=== PATIENT | female | born 1955 | race Asian ===

== ENCOUNTER 2016-06-21 11:11 | Outpatient (CLI) | payer OTHER ==
[~2016-06-21 11:11] MED LIST: ADVAIR DISKU1 INH; ADVAIR DISKUS INH; ALBUTEROL HFA60 DOSE IN; ALBUTEROL2.5 MG/3 M IN; B-12500 MC1 PO; CALCIUM 600 + D PO; CALCIUM CARBON500 MG PO; CEFUROXIME AXE250 MG PO; COREG CR10 MG PO; COREG6.25 MG PO; COUMADIN5 MG PO; DSS250 MG PO; DUONEB IN; FERROUS SULFAT324 M1 PO; FERROUS SULFAT324 MG PO; FERROUS SULFAT325 M1 PO; FUROSEMIDE20 MG PO; INCRUSE EL62.5 MCG/I INH; ISOPTO ATROPINE OP; LASIX40 MG PO; LEVOFLOXACIN500 MG PO; LEVOTHYROXINE100 MCG PO; LEVOTHYROXINE137 MCG PO; LISINOPRIL5 MG PO; MIRALAX3350 N1 PO; OXYCODONE HCL5 MG PO; PHENERGAN EQUIV25 MG PO; PRED FORTE1 % OP; PREDNISONE10 MG PO; PREDNISONE20 MG PO; PRILOSEC20 MG PO; PRINIVIL5 MG PO; PROAIR HFA IN; ROXICODONE5 MG PO; SENNA-LAX8.6 MG PO; SENNA-TABS8.6 MG PO; SPIRIVA18 MCG INH; WARFARIN SODIUM5 MG PO; [UNRECOGNIZED DRUG - OTHER] PO
== END 2016-06-21 23:00 ==
LOC: LAB SRH 11:11
DX: Z95.2 Presence of prosthetic heart valve (principal); Z79.01 Long term (current) use of anticoagulants; Z51.81 Encounter for therapeutic drug level monitoring
CPT/HCPCS: 90074; 94060

== ENCOUNTER 2016-07-20 11:42 | Outpatient (CLI) | payer OTHER | END 2016-07-20 23:00 | LOC: LAB SRH 11:42 | DX: Z51.81 Encounter for therapeutic drug level monitoring (principal); Z79.01 Long term (current) use of anticoagulants; Z95.2 Presence of prosthetic heart valve | CPT/HCPCS: 90074; 94060 ==

== ENCOUNTER 2016-07-31 14:42 | Inpatient (IN) | payer OTHER ==
[~2016-07-31] VITALS: Ht 157.5 cm; Wt 55.2 kg
--- NOTE | 2016-07-31 15:32 | DIAGNOSTIC IMAGING REPORT ---
PROCEDURE: XR CHEST 1 VIEW INDICATION: Short of breath. TECHNIQUE: Portable AP view (1515 hours). COMPARISON: Compared to chest x-ray on 03/22/2016. FINDINGS: Lungs are clear. Status post median sternotomy. Marked cardiomegaly. Thorax is unchanged. IMPRESSION: 1. Status post median sternotomy. 2. Marked cardiomegaly. 3. Otherwise negative chest.
--- NOTE | 2016-07-31 18:28 | ED NURSING NOTES ---
Clinical Report - Nurses [facility] [address] [place] [address] 07/31/2016 14:42 Patient: GINGER JOHNSON TRIAGE Triage time 1452 PM. Acuity: LEVEL 3. Chief Complaint: SHORTNESS OF BREATH, DIFFICULTY BREATHING and WHEEZING. Alert. No acute distress. SEJAL COMA SCORE: [place] Coma Scale: 15- eyes open spontaneously (4); best verbal response- oriented x 4 (5); best motor response- obeys commands (6). --15:05 Annalisa Newman R.N. 14:58 07/31/16. BP: 99/66 (small adult cuff) taken on the left arm, via an automated monitor, while sitting. HR: 76. RR: 14. O2 saturation: 99%. O2 started via nasal cannula at 4 liters/minute. Temp: 98.9 F (oral). Pain level now: 0/10. --15:05 Annalisa Newman R.N. Weight: 47.6 kg stated. Height/Length: 60 inches Per Patient. BMI: 20.5. --14:53 Annalisa Newman R.N. Medications Advair Diskus Inhalation 1 puff, 2x a day. Albuterol Sulfate Inhalation 2 puffs, as needed. Calcium 600+D Oral. Carvedilol Phosphate ER Oral (Capsule Extended Release 24 Hour 10 mg), bid. Coumadin Oral 5 mg, daily (Th-Sat 5mg all other days 2.5 mg). Cyanocobalamin 1000 mg, daily. Ferrous Sulfate Oral 324 mg, 2x a day. Folic Acid Oral 1 mg, daily. Furosemide Oral (Tablet 20 mg) 2 tablets, 2x a day. Incruse ellipta 62.5 mcg/inhalation, daily. Levothyroxine Sodium Oral 137 mcg, daily. Lisinopril Oral 5 mg, daily. --14:52 Annalisa Newman R.N. Omeprazole Oral 20 mg, 2x a day. OxyCODONE HCl Oral 5 mg, 1-2 tabs 2-3 times daily as needed. PredniSONE Oral 10 mg, daily. ProAir HFA Inhalation, as needed. Promethazine HCl Oral 12.5 mg, daily as needed. Senna Oral 2 tablets prn at hs. --14:52 Annalisa Newman R.N. Medication/allergy information source: the patient. --15:05 Annalisa Newman R.N. Allergies No Known Drug Allergy. --14:52 Annalisa Newman R.N. History Historian: patient. Primary physician (Dr. Baptiste). ( Poor historian, pt states not feeling good for the past 5-6 days, dizzy SOB, on O2 at home at 3l via NC, denies CP,). Onset. (5 days). She has had a cough and wheezing. No chest pain or back pain. Treatment MACHINE PACKAGER: (albuterol). PAST MEDICAL HX: Congestive heart failure. Asthma. Chronic obstructive pulmonary disease. Immunizations: up-to-date. The patient is post-menopausal. SOCIAL HX: Former smoker, end date 1996. No alcohol use or drug use. No infectious disease exposure. ABUSE ASSESSMENT: No report of abuse. SELF HARM ASSESSMENT: A self harm assessment was performed. The patient answered "no" to the question "Do you have thoughts of harming or killing yourself?" and "Have you recently had thoughts about harming or killing others?". FALL RISK ASSESSMENT: Fall risk assessment completed. No fall risk identified. NUTRITIONAL RISK ASSESSMENT: The nutritional risk assessment revealed no deficiencies. FUNCTIONAL ASSESSMENT: Functional assessment: no impairments noted. LEARNING NEEDS ASSESSMENT: The learning needs assessment revealed no barriers. SKIN INTEGRITY ASSESSMENT: Skin integrity risk assessment completed. No skin integrity risk identified. --15:05 Annalisa Newman R.N. PROBLEMS: Home oxygen. Gastroenteritis. Anemia. Epistaxis. Prior Nosebleeds. Abdominal Pain. Ascites. Emphysema. Immunizations. Respiratory Failure. Gallstone(s). Dyspnea. Asthma. --14:52 Annalisa Newman R.N. Pneumonia [RuleOut]. Congestive Heart Failure [RuleOut]. COPD - Chronic Obstructive Pulmonary Disease [RuleOut]. --14:52 Annalisa Newman R.N. Hypothyroidism. Cirrhosis. --15:00 Annalisa Newman R.N. ADDITIONAL SURGERIES: Aortic and mitral valvuloplasty. Cataract Surgery. Hernia Repair. Thyroid Surgery. --14:52 Annalisa Newman R.N. Interventions ID band on patient. --15:05 Annalisa Newman R.N. PHYSICAL ASSESSMENT Ambulatory to room. GENERAL / NEURO / PSYCH: Alert. Oriented X 4. Appears in no acute distress. HEENT: Mucous membranes are pink. RESPIRATORY: Moderate respiratory distress. The patient can speak a few words at a time. Nasal flaring present. Cough. Expiratory and inspiratory bilateral wheezes posteriorly and in the bases and wheezes in the right and left mid-lung and upper lung; wheezes audible without auscultation. CVS: Cardiac rhythm: atrial fibrillation; frequent PVCs. GI / : Abdomen soft and nontender. SKIN: Skin is warm and dry. Poor skin turgor. --15:07 Annalisa Newman R.N. NURSING PROGRESS NOTES 15:08 07/31/2016 Duoneb (Ipratropium-Albuterol) Neb TX Nebulizer 1 unit dose given. Given by the respiratory therapist. Allergies verified and confirmed 5 rights. Scotty Estrella --15:08 Scotty Estrella The initial plan of care for this patient has been created This plan of care was discussed with the patient and patient's friend. Oxygen administered by nasal cannula at 4 liters. environmental monitoring specialist, pulse oximeter and NIBP monitor placed on patient. Patient gowned. Head of bed elevated 90 degrees. Warming measures: blanket applied. Reassurance given. Assisted patient. ( Pt on O2 at home, placed on O2 in the WR at 4 liters, treatment being administered as ordered). Two patient identifiers checked. Fall risk assessment completed. Risk factors identified include patient medications and age greater than 65 years. Fall interventions initiated. Compressor Battery Pellets at bedside. Call light in reach of patient. Instructed not to get up without assistance. Call light placed in reach. Side rails up x 1. Bed placed in lowest position. Brakes of bed on. --15:09 Annalisa Newman R.N. 15:09 07/31/16. BP: 101/63. HR: 86. RR: 18. O2 saturation: 97%. O2 started via nasal cannula at 4 liters/minute. Pain level now: 0/10. --15:09 Annalisa Newman R.N. 15:37 07/31/2016 Site #1 started via IV in the right forearm with an 22g angiocath; two attempts. Blood drawn: rainbow set. Labeled in the presence of the patient and sent to the lab. Saline lock flushed. --15:37 Annalisa Newman R.N. 15:37 07/31/2016 SOLU-MEDROL (MethylPREDNISolone Sodium Succ) IVP 125 mg given over 2 minute(s) via site #1. --15:37 Annalisa Newman R.N. 15:44 07/31/16. BP: 107/80 (small adult cuff) taken on the left arm, via an automated monitor, while sitting. HR: 86 (irregular). RR: 18. O2 saturation: 97% on nasal cannula at 5 liters/minute. Pain level now: 0/10. --15:48 Annalisa Newman R.N. Cardiac rhythm: atrial fibrillation; occasional PVCs. Oxygen increased to 5 liters by nasal cannula; (due to treatment). Monitoring of patient in place. EKG time: (1538 PM). EKG was performed by a tech and shown to the ED physician. Patient ID band checked for patient name, birthdate and medical record number: patient confirmed. Blood samples drawn from the right forearm peripheral IV site with 22g by nurse per protocol ; labeled in presence of the patient and sent to lab: rainbow set. Reassurance given. Reassessment after oxygen administered, intervention and medication administered. She has had no adverse reaction. Overall patient status is the same- she states feels the same. GENERAL / NEURO / PSYCH: The patient reports fatigue. RESPIRATORY: The patient reports difficulty breathing is still present but improving and currently mild in severity. Expiratory and inspiratory wheezes present; wheezes audible without auscultation. CVS: Denies chest pain. Cardiac rhythm: atrial fibrillation; occasional PVCs. Two patient identifiers checked. Call light placed in reach. Side rails up. Bed placed in lowest position. Brakes of bed on. --15:48 Annalisa Newman R.N. 16:00 07/31/2016 albuterol neb * Neb TX 7.5 mg --16:48 Annalisa Newman R.N. 16:08 07/31/2016 Zofran (Ondansetron HCl) IVP 4 mg given over 2 minute(s) via site #1. IV patency established. IV site checked: no pain, redness, or swelling. IV flushed thoroughly pre- and post-medication administration. --16:08 Guido Marquez R.N. 17:00 07/31/16. BP: 88/60. HR: 94. RR: 20. O2 saturation: 92%. O2 started via nasal cannula at 4 liters/minute. Pain level now: 0/10. ED physician notified. --17:20 Annalisa Newman R.N. Cardiac rhythm: atrial fibrillation; occasional multifocal PVCs. Oxygen administered. environmental monitoring specialist, pulse oximeter and NIBP monitor placed on patient. Reassurance given. ( Dr. Ford aware of pt BP 80's IV bolus in progress). --17:20 Annalisa Newman R.N. Cardiac rhythm: atrial fibrillation. Oxygen administered. environmental monitoring specialist, pulse oximeter and NIBP monitor placed on patient; monitor alarms on. Reassurance given. ( Pt needing a CTA new IV placed, tolerated well, fluids infusing tolerating well.). --17:32 Annalisa Newman R.N. 17:30 07/31/16. BP: 94/39. HR: 84. RR: 20. O2 saturation: 97% on nasal cannula at 4 liters/minute. Temp: 98.2 F (oral). Pain level now: 0/10. --17:32 Annalisa Newman R.N. Patient returned from CT by stretcher with O2 and tech. --18:18 Annalisa Newman R.N. 18:32 07/31/16. BP: 112/60. HR: 83. RR: 19. O2 saturation: 94%. O2 started via nasal cannula at 4 liters/minute. Temp: 98.3 F (oral). Pain level now: 0/10. --18:34 Annalisa Newman R.N. Cardiac rhythm: atrial fibrillation; occasional unifocal PVCs. Reassurance given. ( consent obtained for blood transfusion, pt understands results, Dr. Ford at bedside.). Two patient identifiers checked. Call light placed in reach. Side rails up x 2. Bed placed in lowest position. Brakes of bed on. --18:34 Annalisa Newman R.N. 16:45 07/31/2016 Albuterol neb Neb TX Response: no adverse reaction. --19:45 Annalisa Newman R.N. 17:00 07/31/2016 Zofran IVP Response: no adverse reaction. --19:46 Annalisa Newman R.N. 17:18 07/31/2016 Started bag #1 250 mL IV Fluids IV NS (Saline); at 250 mL/hr over 1 hour(s) via site #1 via IV pump. Allergies verified and confirmed 5 rights. IV patency established. IV site checked: no pain, redness, or swelling. IV flushed thoroughly pre- and post-medication administration. --17:18 Annalisa Newman R.N. 17:31 07/31/2016 Site #2 started via IV in the left upper arm with an 20g angiocath; one attempt. Saline lock flushed with 10 mL saline. --17:31 Annalisa Newman R.N. 19:02 07/31/2016 IV Fluids IV NS Discontinued: bag #1 STOPPED. Total amount infused: 250 mL. IV patency established. IV site checked: no pain, redness, or swelling. IV flushed thoroughly. --19:27 Annalisa Newman R.N. late entry - 19:00 PM. Cardiac rhythm: atrial fibrillation; frequent multifocal PVCs. Reassurance given. Reassessment after oxygen administered. She is resting quietly and has had no adverse reaction. Overall patient status is improved- she states feels better. CVS: Denies chest pain. Patient waiting for admit bed. --20:16 Annalisa Newman R.N. 19:02 07/31/16. BP: 117/60. HR: 87 (irregular). RR: 18 (regular, labored and normal). O2 saturation: 95% on nasal cannula at 4 liters/minute. Pain level now: 0/10. --20:16 Annalisa Newman R.N. Intake & Output Urine: 150 mL. Patient voided on the commode. Tech assisted with transfer due to weakness and O2, with return of yellow-colored clear urine; odor is normal. --19:29 Wen Lee. DISPOSITION / DISCHARGE 20:10 07/31/2016 Site #1 reassessed; patent and infusing well. Good blood return present. Converted to saline lock. --20:10 Annalisa Newman R.N. 20:11 07/31/2016 Site #2 reassessed; patent, infusing well and no signs of infection or infiltration. Good blood return present. Converted to saline lock. Flushed. --20:11 Annalisa Newman R.N. 20:11 07/31/2016 Site #1; infusing well and no signs of infection or infiltration. --20:11 Annalisa Newman R.N. Cardiac rhythm: atrial fibrillation; frequent multifocal PVCs. Condition at departure: improved and stable. The goals identified in the patient's plan of care were met. Transported via stretcher by transport team with O2. Report was given to a nurse via a phone call. Report included patient's care, treatment, medications, reviewed medication reconcilliation, and condition (including any recent changes or anticipated changes). All questions were answered. Report was acknowledged and care was transferred. ( Pt will be transferred safely to room, VSS, IV sites intact). --20:12 Annalisa Newman R.N. 20:10 07/31/16. BP: 117/79. HR: 92. RR: 17. O2 saturation: 99% on nasal cannula at 4 liters/minute. Temp: 98 F (oral). Pain level now: 0/10. --20:12 Annalisa Newman R.N. Departure time: 2015 PM. --20:16 Annalisa Newman R.N. Locked/Released at 07/31/2016 20:17 by Annalisa Newman R.N.
--- NOTE | 2016-07-31 18:28 | ED ORDER SUMMARY ---
..... Patient: GINGER JOHNSON OrderSheet [facility] VisitID: [id number] [address] [place] [address] 61y, F Registration Date/Time: 07/31/2016 ORDER SHEET Weight: 47.6 kg (stated) Allergies: No Known Drug Allergy GENERAL ORDERS: Project Coordinator (Continuous) (Respiratory Distress) (15:03 07/31/2016 Peterson Williamson) (15:09 EHassan R.N.) Chest 1V Urgent (15:04 07/31/2016 Peterson Williamson) (Ack 15:16 Tian) (15:16 Calin) CBC w Diff Urgent (15:04 07/31/2016 Peterson Williamson) (Ack 15:15 Tian) (15:37 EHassan R.N.) CMP Urgent (15:04 07/31/2016 Peterson Williamson) (Ack 15:15 Tian) (15:37 EHassan R.N.) Lactate, Serum Urgent (15:04 07/31/2016 Peterson Williamson) (Ack 15:15 Tian) (15:37 EHassan R.N.) PCT (Procalcitonin) Urgent (15:04 07/31/2016 Peterson Williamson) (Ack 15:15 Tian) (15:37 EHassan R.N.) Pulse oximeter (15:04 07/31/2016 Peterson Williamson) (15:09 EHassan R.N.) Oxygen (titrate to sats > 92%) (NC) (15:05 07/31/2016 Peterson Williamson) (15:28 EHassan R.N.) Rapid Influenza Screen (Nasal Pharyngeal) (mucus) Urgent (15:14 07/31/2016 Peterson Williamson) (Ack 15:16 Tian) (15:28 EHassan R.N.) RSV Rapid Screen (Nasal Pharyngeal) (mucus) Urgent (15:14 07/31/2016 Peterson Williamson) (Ack 15:16 Tian) (15:28 EHassan R.N.) BNP Urgent (15:18 07/31/2016 Peterson Williamson) (15:37 Francesca R.N.) Troponin-I Urgent (15:18 07/31/2016 Peterson Williamson) (15:37 Francesca R.N.) D-Dimer Urgent (15:18 07/31/2016 Peterson Williamson) (15:37 Francesca R.N.) EKG - ER Stat (15:18 07/31/2016 Peterson Williamson) (15:40 Francesca R.N.) CTA Thorax w Cont (No) (N/A) Urgent (15:59 07/31/2016 Peterson Williamson) (Ack 16:09 Tian) (18:08 Francesca R.N.) Blood Product: Platelets (anemia) (anemia and shortness of breath) Urgent (18:19 07/31/2016 Peterson Williamson) (Ack 18:23 Tian) (18:31 Francesca R.N.) (Cancelled: Duplicate Order18:56 Peterson Williamson) Type & Screen Urgent (18:19 07/31/2016 Peterson Williamson) (Ack 18:23 Tian) (18:32 Francesca R.N.) Transfuse PRBCs (2) (18:20 07/31/2016 Peterson Williamson) (18:31 Francesca R.N.) Consent for: (Blood Products) (18:20 07/31/2016 Peterson Williamson) (Ack 18:23 Tian) (18:31 Francesca R.N.) PT with INR Urgent (19:16 07/31/2016 Peterson Williamson) (19:35 Francesca R.N.) PTT Urgent (19:16 07/31/2016 Peterson Williamson) (19:35 Francesca R.N.) MEDICATION ORDERS: DuoNeb Neb Tx 1 unit dose (NOW) (15:04 07/31/2016 Peterson Williamson) (15:08 CrowZiwai) Albuterol Neb Tx 7.5 mg (one now over an hour) (15:14 07/31/2016 Peterson Williamson) (16:48 Francesca R.N.) IV FLUIDS: Solu-MEDROL IV 125 mg (NOW) (15:04 07/31/2016 Peterson Williamson) (15:37 EHassareyes R.N.) IV Saline Lock (15:04 07/31/2016 Peterson Williamson) (15:40 EHassareyes R.N.) Zofran IV 4 mg (NOW) (16:03 07/31/2016 Peterson Williamson) (16:08 GMarshall R.N.) IV NS : initial bolus 250 mL (1000 mL/hr), then none - for X1 (NOW) (17:13 07/31/2016 Peterson Williamson) (17:18 EHassan R.N.) ORDER SHEET NOTES: [Electronically signed by Annalisa Newman R.N. (20:17 07/31/2016)] [Electronically signed by Jose Martínez Dr. (08:26 08/06/2016)] [Electronically locked/signed by Annalisa Newman R.N. (20:17 07/31/2016)]
--- NOTE | 2016-07-31 18:28 | ED CLINICAL REPORT ---
Clinical Report - Physicians/Mid Levels [facility] [address] [place] [address] 07/31/2016 14:42 Patient: GINGER JOHNSON Arrived- By private vehicle. Historian- patient. HISTORY OF PRESENT ILLNESS Chief Complaint: DYSPNEA. This started past several days and is still present and worsening. It was gradual in onset and has been constant but is not gone now. The dyspnea is described as moderate and is worsened by exertion and is improved by rest. No cough, chest pain or discomfort, calf pain or foot swelling. She has had mild wheezing. Similar symptoms previously: Recent medical care: Not recently seen/assessed. REVIEW OF SYSTEMS The patient has not had weight loss. No muscle aches, nausea, vomiting, black stools or bloody stools. All systems otherwise negative, except as recorded above. PAST HISTORY See nurses notes. Medications: Omeprazole Oral 20 mg, 2x a day. OxyCODONE HCl Oral 5 mg, 1-2 tabs 2-3 times daily as needed. PredniSONE Oral 10 mg, daily. ProAir HFA Inhalation, as needed. Promethazine HCl Oral 12.5 mg, daily as needed. Senna Oral 2 tablets prn at hs. Advair Diskus Inhalation 1 puff, 2x a day. Albuterol Sulfate Inhalation 2 puffs, as needed. Calcium 600+D Oral. Carvedilol Phosphate ER Oral (Capsule Extended Release 24 Hour 10 mg), bid. Coumadin Oral 5 mg, daily (Th-Sat 5mg all other days 2.5 mg). Cyanocobalamin 1000 mg, daily. Ferrous Sulfate Oral 324 mg, 2x a day. Folic Acid Oral 1 mg, daily. Furosemide Oral (Tablet 20 mg) 2 tablets, 2x a day. Incruse ellipta 62.5 mcg/inhalation, daily. Levothyroxine Sodium Oral 137 mcg, daily. Lisinopril Oral 5 mg, daily. Allergies: No Known Drug Allergy. SOCIAL HISTORY Former smoker. No alcohol use or drug use. Recent travel. ADDITIONAL NOTES The nursing notes have been reviewed. PHYSICAL EXAM Vital Signs: 07/31/2016 14:58 BP: 99/66. HR: 76. RR: 14. O2 saturation: 99%. Temp: 98.9 F. Pain level now: 0/10. Blood pressure normal. Oxygen saturation normal. Appearance: Alert. Patient in mild distress. Eyes: Pupils equal, round and reactive to light. Eyes normal inspection. ENT: Ears normal. Nose normal. Pharynx normal. Uvula midline. Neck: Normal inspection. No jugular venous distention. Neck supple. CVS: Normal heart rate and rhythm. Heart sounds normal. Pulses normal. Respiratory: Respiratory distress. Mild bilateral wheezes present. No stridor, rales or rhonchi. (nly able to speak in several word sentences). Abdomen: Soft and nontender. No organomegaly. Back: Normal inspection. Skin: Skin warm and dry. Normal skin color. No rash. Normal skin turgor. Extremities: Extremities exhibit normal ROM. No lower extremity edema. Neuro: Oriented X 3. No motor deficit. No sensory deficit. LABS, X-RAYS, AND EKG EKG: No acute ischemia. Rate: 88. Normal P waves. Normal ERIC. Normal QRS complex. Normal axis. Normal ST and T waves, QT and QTc. few PVCs. otherwise normal sinus with fascicular block. The study has been interpreted contemporaneously. The study has been independently viewed by me. The EKG appears to be a good tracing. Chest X-ray: No acute disease. Cardiomegaly. No infiltrate. No pneumothorax. Views: PA. Technique: good. The X-rays were independently viewed by me and interpreted by the radiologist. The X-rays were discussed with the radiologist (via pacs). A comparison with prior films reveals that the findings are unchanged. Laboratory Tests: CBC w Diff: (JP: 07/31/2016 15:18) ( MsgRcvd 07/31/2016 15:53) Final results Test Result Flag Units (Reference) WHITE BLOOD COUNT 4.0 L K/uL (4.5-11.5) RED BLOOD COUNT 2.08 L M/uL (4.00-5.20) HEMOGLOBIN 6.8 *L gm/dL (12.0-16.0) CRITICAL RESULTS CALLEDCalled to [facility] 07/31/16 1552Were 2 patient identifiers used? YWas the result read back? Y HEMATOCRIT 20.2 *L % (36.0-46.0) CRITICAL RESULTS CALLEDCalled to [facility] [employer] 07/31/16 1552Were 2 patient identifiers used? YWas the result read back? Y MEAN CELL VOLUME 97 fL (80-100) MEAN CORPUSCULAR HGB 33 pg (26-34) MEAN CORPUSCULAR HGB CONC 33 g/dL (31-37) RED CELL DISTRIBUTION WIDTH 17.0 H % (11.6-14.8) PLATELET COUNT 157 K/uL (150-400) NEUTROPHIL % 78.1 H % (50-75) LYMPH % 12.9 L % (25-40) MONO % 8.9 % (3-14) EOSINOPHIL % 0.1 % (0-4) BASOPHIL % 0 % (0-2) [id number]: (JP: 07/31/2016 15:18) ( [facility] 07/31/2016 15:55) Final results Test Result Flag Units (Reference) D-DIMER QUANTITATIVE 1.03 H ug/mLFEU (0.27-0.52) The primary value of this quantitative assay relates toits negative predictive value (i.e. exclusion) of pulmonaryembolism/deep vein thrombosis/DIC.Elevated levels of d-dimer may also occur with:, age, cancer, inflammation, liver disease,post-op, infection, hematoma, coronary disease, peripheralarteriopathy, bleeding disorders and thrombolytic treatment.Results should be correlated with other clinical andradiological data.Testing Methodology: Latex Immunoassay BNP: (JP: 07/31/2016 15:18) ( [facility] 07/[facility] 16[facility]01) Final results Test Result Flag Units (Reference) B-TYPE NATRIURETIC PEPTIDE 189 H pg/ml (5-100) Troponin-I: (JP: 07/31/2016 15:18) ( [facility] 07/31/2016 16:17) Final results Test Result Flag Units (Reference) TROPONIN I <0.05 ng/mL (0.00-1.5) TROPONIN REFERENCE RANGE:<0.1 NEGATIVE0.1-1.5 INDETERMINANT>1.5 POSITIVE Lactate, Serum: (JP: 07/31/2016 15:18) ( AkgRcvd 07/31/2016 16:18) Final results Test Result Flag Units (Reference) LACTIC ACID 1.4 mmol/L (0.4-2.0) CMP: (JP: 07/31/2016 15:18) ( MsgRcvd 07/31/2016 16:17) Final results Test Result Flag Units (Reference) GLUCOSE 104 mg/dL (70-110) BUN 24 H mg/dL (7-18) CREATININE 1.6 H mg/dL (0.6-1.3) Estimated GFR 34.83 mL/min Estimated GFR- 42.21 mL/min Note: Persistent reduction over 3 months in eGFR<60 mL/min/1.73 m2 defines CKD. Patients with eGFR values>=60 mL/min/1.73 m2 may also have CKD if evidence ofpersistent proteinuria. Additional information may be foundat www.[email or web address].org. SODIUM 132 L mmol/L (136-145) POTASSIUM 3.5 mmol/L (3.5-5.1) CHLORIDE 94 L mmol/L (98-107) CARBON DIOXIDE 28 mmol/L (21-32) CALCIUM 8.1 L mg/dL (8.5-10.1) TOTAL PROTEIN 7.0 g/dL (6.4-8.2) ALBUMIN 3.2 L g/dL (3.3-5.0) BILIRUBIN, TOTAL 0.9 mg/dL (0.0-1.0) ALKALINE PHOSPHATASE 122 H U/L (46-116) AST (SGOT) 50 H U/L (15-37) ALT (SGPT) 17 U/L (12-78) RSV Rapid Screen: (JP: 07/31/2016 15:18) ( MsgRcvd 07/31/2016 16:22) Final results SPECIMEN DESCRIPTION: MUCUS Test Result Flag Units (Reference) RSV RAPID TEST DATE: 07/31/16 NEGATIVE SCREEN: NEGATIVE If Rapid RSV test is Negative but RSV is still suspected, a confirmatory RSV DFA can be requested. RAPID INFLUENZA SCREEN DATE: 07/31/16 INFLUENZA A: NEGATIVE SCREEN FOR INFLUENZA A INFLUENZA B: NEGATIVE SCREEN FOR INFLUENZA B . PROGRESS AND PROCEDURES Course of Care: the patient is a pleasant 61-year-old female presenting for evaluation of shortness of breath. At this time differential diagnosis includes pneumonia, COPD exacerbation, acute myocardial infarction, pulmonary embolism. The patient was seen by me previously and known to have a COPD exacerbation. Patient is wheezing on examination. Patient will be given breathing treatments including DuoNeb and steroids. Patient is agreeable to treatment plan. Laboratory studies ordered for the above diagnosis including chest x-ray and d-dimer. Patient's workup shows patient to have stable cardiomegaly. EKG is unremarkable. The patient's laboratories were significant for hemoglobin of 6.8. I'd spoken to the patient in regards to bleeding symptoms. The patient initially had reported no symptoms of bleeding however after performing digital rectal examination, head asked patient about black colored stools. Informed patient that the black colored stools are abnormal. Patient reports that this is been on for the past few days. Patient is noted to be on blood thinners. Patient states that she has been compliant with her medications and not had any missed doses. Because of the patient's noted low hemoglobin at 6.8, she will likely need to be admitted however at this time patient could also have pulmonary embolism. CT scan is pending at this time. We're currently awaiting CT scan results. CT scan did not show any acute abnormalities with the patient's pulmonary vasculature in regards to pulmonary embolism. Patient will be transfused 2 units. Caution will be exercised when providing patient with blood products as she is noted to have history of congestive heart failure. Case has been discussed with the hospitalist. Patient will be accepted. No further recommendations. The patient was admitted without further delay. Prior to patient's departure from the emergency department she is noted to be resting in bed and in no acute distress. Patient likely with acute blood loss anemia from GI bleed. Critical care performed (65 minutes). Time is exclusive of separately billable procedures. Time includes: direct patient care, patient reassessment, coordination of patient care, interpretation of data (laboratory data and chest xrays), review of patient's medical records, medical consultation and documentation of patient care. Disposition: Admitted to Acute Care. CLINICAL IMPRESSION anemia, acute blood loss GI bleed, acute incidental left adrenal mass enlarged. (Electronically signed by Jose Martínez Dr. 08/06/2016 8:26)
--- NOTE | 2016-07-31 18:28 | ED ORDER SUMMARY ---
..... Patient: GINGER JOHNSON OrderSheet [facility] VisitID: [id number] [address] [place] [address] 61y, F Registration Date/Time: 07/31/2016 ORDER SHEET Weight: 47.6 kg (stated) Allergies: No Known Drug Allergy GENERAL ORDERS: Circular Saw Edge Fuser (Continuous) (Respiratory Distress) (15:03 07/31/2016 Peterson Williamson) (15:09 EHassan R.N.) Chest 1V Urgent (15:04 07/31/2016 Peterson Williamson) (Ack 15:16 Tian) (15:16 Calin) CBC w Diff Urgent (15:04 07/31/2016 Peterson Williamson) (Ack 15:15 Tian) (15:37 EHassan R.N.) CMP Urgent (15:04 07/31/2016 Peterson Williamson) (Ack 15:15 Tian) (15:37 EHassan R.N.) Lactate, Serum Urgent (15:04 07/31/2016 Peterson Williamson) (Ack 15:15 Tian) (15:37 EHassan R.N.) PCT (Procalcitonin) Urgent (15:04 07/31/2016 Peterson Williamson) (Ack 15:15 Tian) (15:37 EHassan R.N.) Pulse oximeter (15:04 07/31/2016 Peterson Williamson) (15:09 EHassan R.N.) Oxygen (titrate to sats > 92%) (NC) (15:05 07/31/2016 Peterson Williamson) (15:28 EHassan R.N.) Rapid Influenza Screen (Nasal Pharyngeal) (mucus) Urgent (15:14 07/31/2016 Peterson Williamson) (Ack 15:16 Tian) (15:28 EHassan R.N.) RSV Rapid Screen (Nasal Pharyngeal) (mucus) Urgent (15:14 07/31/2016 Peterson Williamson) (Ack 15:16 Tian) (15:28 EHassan R.N.) BNP Urgent (15:18 07/31/2016 Peterson Williamson) (15:37 Francesca R.N.) Troponin-I Urgent (15:18 07/31/2016 Peterson Williamson) (15:37 Francesca R.N.) D-Dimer Urgent (15:18 07/31/2016 Peterson Williamson) (15:37 Francesca R.N.) EKG - ER Stat (15:18 07/31/2016 Petesron Williamson) (15:40 Francesca R.N.) CTA Thorax w Cont (No) (N/A) Urgent (15:59 07/31/2016 Peterson Williamson) (Ack 16:09 Tian) (18:08 Francesca R.N.) Blood Product: Platelets (anemia) (anemia and shortness of breath) Urgent (18:19 07/31/2016 Peterson Williamson) (Ack 18:23 Tian) (18:31 Francesca R.N.) (Cancelled: Duplicate Order18:56 Peterson Williamson) Type & Screen Urgent (18:19 07/31/2016 Peterson Williamson) (Ack 18:23 Tian) (18:32 Francesca R.N.) Transfuse PRBCs (2) (18:20 07/31/2016 Peterson Williamson) (18:31 Francesca R.N.) Consent for: (Blood Products) (18:20 07/31/2016 Peterson Williamson) (Ack 18:23 Tian) (18:31 Francesca R.N.) PT with INR Urgent (19:16 07/31/2016 Peterson Williamson) (19:35 Francesca R.N.) PTT Urgent (19:16 07/31/2016 Peterson Williamson) (19:35 Francesca R.N.) MEDICATION ORDERS: DuoNeb Neb Tx 1 unit dose (NOW) (15:04 07/31/2016 Peterson Williamson) (15:08 CrowZiwai) Albuterol Neb Tx 7.5 mg (one now over an hour) (15:14 07/31/2016 Peterson Williamson) (16:48 Francesca R.N.) IV FLUIDS: Solu-MEDROL IV 125 mg (NOW) (15:04 07/31/2016 Peterson Williamson) (15:37 EHassareyes R.N.) IV Saline Lock (15:04 07/31/2016 Peterson Williamson) (15:40 EHassareyes R.N.) Zofran IV 4 mg (NOW) (16:03 07/31/2016 Peterson Williamson) (16:08 GMarshall R.N.) IV NS : initial bolus 250 mL (1000 mL/hr), then none - for X1 (NOW) (17:13 07/31/2016 Peterson Williamson) (17:18 EHassan R.N.) ORDER SHEET NOTES: [Electronically signed by Annalisa Newman R.N. (20:17 07/31/2016)] [Electronically signed by Jose Martínez Dr. (08:26 08/06/2016)] [Electronically locked/signed by Annalisa Newman R.N. (20:17 07/31/2016)]
[2016-07-31 18:32] VITALS: BP 112/60
--- NOTE | 2016-07-31 19:04 | DIAGNOSTIC IMAGING REPORT ---
PROCEDURE: CTA THORAX WITH CONTRAST INDICATION: SOB AND + D-DIMER TECHNIQUE: 124 ml of Isovue 370 was injected intravenously and axial images were obtained of the entire thorax with 3D sagittal and coronal MIP reconstructions. COMPARISON: Comparison is made to chest x-ray earlier today (07/31/2016), and CT abdomen and pelvis (03/06/2013). FINDINGS: Peripheral pulmonary vessels are difficult to evaluate due to suboptimal opacification, as a result of marked cardiomegaly. There is enlargement of the central pulmonary arteries, although no emboli are identified. There are mild parenchymal changes at the left medial lung base. There is chronic right middle lobe atelectasis. Marked cardiomegaly. Status post median sternotomy with probable aortic and mitral valve prostheses. Mild degenerative change of the thoracic spine. There is increase in a 2.6 cm left adrenal nodule (50 HU, previously measuring 1.6 cm). IMPRESSION: 1. Limited evaluation of peripheral pulmonary arteries as a result of marked cardiomegaly. No large central emboli are identified. 2. Enlargement of central pulmonary arteries suggests pulmonary arterial hypertension. 3. Mild parenchymal changes at the left lung base which could represent scarring or underlying aspiration or pneumonia. 4. Chronic right middle lobe atelectasis. 5. Status post median sternotomy with probable aortic and mitral valve prostheses. 6. Marked cardiomegaly (no change). 7. Mild increase in 2.6 cm left adrenal nodule since 2012 (previously 1.6 cm). Consider benign adenoma (functioning versus nonfunctioning), or adrenal neoplasm. CT or MRI adrenal studies are recommended (preferably with adrenal washout). 8. Findings discussed with Dr. Jose Martínez. All CT scans at this facility use dose modulation, iterative reconstruction, and/or weight-based dosing when appropriate to reduce radiation dose to as low as reasonably achievable.
--- NOTE | 2016-07-31 20:13 | Progress Note ---
Subjective General Admission History and Physical Examination Patient Name: Marichuy Palencia Admission Date: July 31, 2016 Primary Care Provider: Dr. Nelson Attending Physician: Lew Martini M.D. Admitting Physician: Lew Martini M.D. SUBJECTIVE Historian: Patient Reliability: Fair Chief Complaint: Shortness of breath History of Present Illness: The patient is a 61-year-old female with a significant past medical history of congestive heart failure, chronic obstructive pulmonary disease, valvular heart disease status post aortic/mitral valve replacement, hypothyroidism, gastroesophageal reflux, atrial fibrillation, chronic pain syndrome, and chronic anticoagulation, who presented to [facility] Emergency Department on the day of admission with complaints of shortness of breath. [facility] ER evaluation was consistent with exacerbation of COPD, anemia-H&H 6.8/20.2, and possible early CHF. Secondary to the above, the patient was admitted by Lew Martini M.D. for further evaluation and treatment. The history of present was began several days prior to admission when the patient had increasing shortness of breath. This was associated with mild wheezing and nonproductive cough. The patient denied any history of fever or chills. There was no purulent sputum. Despite inhalation bronchodilators and continued outpatient medical regimen compliance the patient's shortness of breath continued to worsen prompting ER evaluation. [facility] ER evaluation showed the patient to have vital signs of blood pressure 99/66 mmHg, respirations 14, temperature 98.9 Fahrenheit orally, O2 sat 99% 4 L/m via nasal cannula. Physical exam not documented in ER note. Findings consistent with severe anemia , mild exacerbation of COPd. Secondary to the above, patient admitted for further evaluation and treatment. PAST MEDICAL HISTORY Illnesses: 1. Chronic obstructive pulmonary disease 2. Valvular heart disease status post aortic/mitral valve replacement 3. Hypothyroidism 4. Gastroesophageal reflux 5. Atrial fibrillation 6. Chronic pain syndrome-abdomen 7. Chronic anticoagulation 8. Thyroid carcinoma 9. Chronic anemia 10. Congestive heart failure. Allergies: 1. NO KNOWN DRUG ALLERGIES. Medications: 1. Advair Diskus 250/50 Inhalation 1 puff, 2x a day. 2. Albuterol Sulfate 2 inhalations every 6 hours when necessary shortness of breath 3. Calcium 600+D one by mouth daily 4. Coumadin 5 mg one by mouth on and Saturday and 2.5 mg by mouth other days of the week 5. Furosemide 20 mg 2 tablets by mouth twice a day 6. Synthroid 137 mcg 1 by mouth daily 7. Lisinopril 5 mg 1 by mouth daily 8. Omeprazole 20 mg by mouth twice a day 9. Oxycodone 5 mg 1-2 tablets by mouth every 4 hours when necessary pain 10. Prednisone 10 mg by mouth daily 11. Promethazine HCl Oral 12.5 mg, daily as needed for nausea 12. Senna 2 tablets by mouth daily at bedtime when necessary constipation 13. ProAir HFA Inhalation, as needed. 14. Carvedilol extended release 10 mg 1 by mouth twice a day 15. Cyanocobalamin 1000 mg, 1 by mouth daily 16. Ferrous Sulfate Oral 324 mg 1 by mouth twice a day 17. Folic Acid Oral 1 mg 1 by mouth daily 18. Incruse ellipta 62.5 mcg/inhalation 1 inhalation daily Surgery: 1. Aortic/mitral valve replacement. 2. Hernia repair. 3. Thyroid surgery Injuries: 1. No significant Hospitalizations: 1. See above surgery and medical problems FAMILY HISTORY Parents: 1. Father, history unknown, 2. Mother, , age unknown, diabetes mellitus Siblings: 1. The patient has one sibling health history unknown Children: 1. The patient has one female child who is in good health. Other significant family history: None SOCIAL HISTORY 1. Marital Status: 2. Jew: Scientologist 3. Education: Unknown HABITS 1. Tobacco: 30 pack years, currently nonsmoker 2. Drugs: None 3. Alcohol: None 4. Caffeine: One cup per day HEALTH SUPERVISION Item/Test 1. Not reviewed IMMUNIZATIONS: 1. Pneumococcal: Unknown 2. Influenza: Unknown 3. Tetanus: Unknown ADVANCED DIRECTIVES: 1. The patient wishes to be placed on a FULL CODE STATUS during her hospitalization REVIEW OF SYSTEMS Remarkable for those things stated in the history of present illness and past medical history. Seventeen point review of system completed with the following notable findings: General: Weakness, fatigue Respiratory: Shortness of breath, cough, dyspnea on exertion, dyspnea improved with rest Cardiovascular: No chest pain, palpitations. Gastrointestinal: Abdominal pain (chronic) Physical Exam Vital Signs / I&Os Vital Signs Date Time Temp Pulse Resp B/P Pulse O2 O2 Flow FiO2 Ox Delivery Rate 07/31 1832 83 19 112/60 94 Nasal 3.0 Cannula 07/31 1520 4.0 07/31 1505 4.0 General Appearance Alert, Oriented X3, Cooperative, No acute distress HEENT Atraumatic, PERRLA, EOMI, Moist mucous membranes Lungs Decreased air movement bilaterally, mild bilateral expiratory wheezes with scattered rhonchi Neck Supple, No JVD Cardiovascular Regular rate and rhythm, grade 2/6 systolic murmur present. Valve click noted Abdomen Normal bowel sounds, Soft, No tenderness, No guarding Extremities No cyanosis, No clubbing, No edema Neurological Cranial nerves intact, Strength 5/5 x4 ext's, No lateralizing signs Psych/Mental Status Mental status normal, Mood normal LAB Results Laboratory Tests 07/31 07/31 07/31 07/31 07/31 1540 1518 1518 1518 1518 Chemistry Lactic Acid (0.4 - 2.0 mmol/L) 1.4 Troponin (0.00 - 1.5 ng/mL) <0.05 B-Natriuretic Peptide (5 - 100 pg/ml) 189 Procalcitonin (0 - 0.5 ng/mL) <0.5 Coagulation INR (0.8 - 1.2) 3.6 APTT (24 - 34 SECONDS) 80 07/31 1518 Chemistry Plasma Sodium (136 - 145 mmol/L) 132 Plasma Potassium (3.5 - 5.1 mmol/L) 3.5 Plasma Chloride (98 - 107 mmol/L) 94 CO2 (Enzymatic) (21 - 32 mmol/L) 28 BUN (7 - 18 mg/dL) 24 Creatinine (0.6 - 1.3 mg/dL) 1.6 Est GFR ( Amer) (mL/min) 42.21 Est GFR (Non-Af Amer) (mL/min) 34.83 Glucose (70 - 110 mg/dL) 104 Plasma Calcium (8.5 - 10.1 mg/dL) 8.1 Total Bilirubin (0.0 - 1.0 mg/dL) 0.9 AST (15 - 37 U/L) 50 ALT (12 - 78 U/L) 17 Alkaline Phosphatase (46 - 116 U/L) 122 Total Protein (6.4 - 8.2 g/dL) 7.0 Albumin (3.3 - 5.0 g/dL) 3.2 Coagulation D-Dimer, Quantitative (0.27 - 0.52 ug/mLFEU) 1.03 Hematology WBC (4.5 - 11.5 K/uL) 4.0 RBC (4.00 - 5.20 M/uL) 2.08 Hgb (12.0 - 16.0 gm/dL) 6.8 Hct (36.0 - 46.0 %) 20.2 MCV (80 - 100 fL) 97 MCH (26 - 34 pg) 33 RDW (11.6 - 14.8 %) 17.0 Neut % (Auto) (50 - 75 %) 78.1 Lymph % (Auto) (25 - 40 %) 12.9 Hardeman % (Auto) (3 - 14 %) 8.9 Eos % (Auto) (0 - 4 %) 0.1 Baso % (Auto) (0 - 2 %) 0 Plt Count, EDTA (150 - 400 K/uL) 157 PUBS MCHC (31 - 37 g/dL) 33 Microbiology Date/Time Procedure - Status Source Growth 07/31 1518 Respiratory Syncytial Virus Ag Scrn - COMP NASALPHAR 07/31 1518 Influenza Screen - COMP NASALPHAR Imaging Chest X-Ray IMPRESSION: 1. Status post median sternotomy. 2. Marked cardiomegaly. 3. Otherwise negative chest. Dictated by: NIDA RIVAS MD D: PARAM07/31/16 1532 CTA Thorax IMPRESSION: 1. Limited evaluation of peripheral pulmonary arteries as a result of marked cardiomegaly. No large central emboli are identified. 2. Enlargement of central pulmonary arteries suggests pulmonary arterial hypertension. 3. Mild parenchymal changes at the left lung base which could represent scarring or underlying aspiration or pneumonia. 4. Chronic right middle lobe atelectasis. 5. Status post median sternotomy with probable aortic and mitral valve prostheses. 6. Marked cardiomegaly (no change). 7. Mild increase in 2.6 cm left adrenal nodule since 2013 (previously 1.6 cm). Consider benign adenoma (functioning versus nonfunctioning), or adrenal neoplasm. CT or MRI adrenal studies are recommended (preferably with adrenal washout). 8. Findings discussed with Dr. Jose Marítnez. Dictated by: NIDA RIVAS MD D: PARAM07/31/16 9093 Assessment and Plan Problem List 1. COPD exacerbation Plan -Patient presents with findings of mild exacerbation of COPD -Mild expiratory wheezes present. -DuoNeb, continue Advair Diskus 250/50 one inhalation twice a day, IV Solu- Medrol 40 mg every 8 hours, supplemental oxygen as necessary. 2. Anemia Status Chronic Onset Date Unknown Plan -Patient presents with significant anemia. -H&H 6.8/20.2 MCV 97 -Iron studies suggest iron deficiency anemia, iron percent saturation 8% -B12 and folate levels pending -Transfuse 3 units packed RBCs over 3 hours each -Stool heme positive in setting of chronic anticoagulation -Patient denies any significant GI bleeding recently with no bright red blood per rectum or melena -Monitor 3. CHF (congestive heart failure) Status Chronic Onset Date Unknown Plan -Patient with history of CHF -No findings of acute CHF/decompensation at this time. -Mild elevation of BNP without findings of pulmonary congestion or significant peripheral edema -Continue outpatient medical regimen -Monitor -Low-salt diet, CHF education 4. Acute GI bleeding Plan -patient with findings of heme positive stools -We'll review previous GI workup -No evidence of significant GI bleeding at this time -Findings of iron deficiency despite iron supplementation -Monitor 5. Adrenal nodule Status Chronic Onset Date Unknown Plan -Patient with findings of left adrenal nodule -This appeared stable in the past but has shown some increase in size on most recent CT scan. -Dr. Elizondo to discuss with radiology recommendations on further imaging studies. 6. Chronic anticoagulation Status Chronic Onset Date Unknown Plan -Patient with history of anticoagulation secondary to atrial fibrillation/ valvular heart disease -INR slightly elevated -Daily INR -Monitor -Patient will require ongoing anticoagulation in the setting of heme positive stools. Will require close outpatient observation 7. CKD (chronic kidney disease) stage 3, GFR 30-59 ml/min Status Chronic Onset Date Unknown Plan -Patient with chronic kidney disease stage III -Monitor -Review previous workup. Current status: Fair, unstable Anticipated discharge date: Anticipated discharge 1-2 days Anticipated discharge placement: Home Patient care time: Time spent in chart review, patient interview, physical exam, CPOE, and care documentation: 70 minutes Visit to patient today: 1 Complexity of care: High E&M Codes Admission: Obsv-Comp/High/[id number]
[2016-07-31 20:59] VITALS: BP 117/65
[2016-07-31 21:20] VITALS: BP 117/65
[2016-07-31 21:35] VITALS: BP 117/79
[2016-07-31 22:40] VITALS: BP 109/72
[2016-07-31 23:31] VITALS: BP 114/80
[2016-08-01] VITALS (23 sets, daily range): BP systolic 63–124; BP diastolic 37–95
--- NOTE | 2016-08-01 18:51 | Progress Note ---
Subjective General Patient seen and examined. Patient has been having continual epistaxis throughout the day secondary to the nasal cannula and elevated INR. Patient has had some degree of copd exacerbation however patient is moving air well and there is minimal wheezing. Patient had the epistaxis stopped after continual pressure. Constitutional Denies: Fever, Chills, Sweats, Weakness, Malaise, Other. Eyes Denies: Pain, Vision Change, Conjunctival Inflammation, Eyelid Inflammation, Redness, Other. ENT Other (epistaxis ). Denies: Ear Pain, Ear Discharge, Nose Pain, Nasal Discharge , Nasal Congestion, Mouth Pain, Mouth Swelling, Throat Pain, Throat Swelling. Respiratory SOB w/exertion. Denies: Cough, Dry, Wheezing, Hemoptysis, Pleuritic Pain, Sputum, Other. Cardiovascular Denies: Chest Pain, Palpitations, Orthopnea, PND, Edema, Light-headedness, Other. Gastrointestinal Vomiting. Denies: Nausea, Abdominal Pain, Diarrhea, Constipation, Melena, Hematochezia, Other. Genitourinary Denies: Dysuria, Frequency, Incontinence, Hematuria, Retention, Other. Musculoskeletal Denies: Neck Pain, Shoulder Pain, Arm Pain, Back Pain, Hand Pain, Leg Pain, Foot Pain, Other. Skin Denies: Rash, Lesions, Jaundice, Bruising, Other. Physical Exam Vital Signs / I&Os Vital Signs Date Time Temp Pulse Resp B/P Pulse O2 O2 Flow FiO2 Ox Delivery Rate 08/02 1330 86 86 96/48 100 Ventilator 50 08/02 1310 79/52 08/02 1304 76/47 /14 1300 90 16 80/45 100 Ventilator 08/02 1259 88 96/62 08/02 1247 100.0 88 16 98/55 100 Ventilator 50 /14 1230 100.0 89 16 87/43 100 Ventilator 50 /14 1200 91 16 102/47 100 Ventilator 40.0 14 1130 91 16 101/54 100 /14 1100 83 16 90/44 100 Ventilator 50 /14 1040 84 16 124/62 100 Ventilator 50 /14 1029 99.7 80 16 87/51 100 Ventilator 50 02/14 1000 80 16 87/41 100 Ventilator 50 02/14 0937 82 16 78/47 100 Ventilator 50 / 0936 82 16 75/44 100 Ventilator 40.0 08/02 0834 85 /14 0832 88 35 89/55 100 50 02/14 0800 Ventilator 50 08/02 0700 101.3 92 16 113/65 98 Ventilator 100 08/02 0609 102.0 95 28 88/56 99 Ventilator 100 08/02 0500 102.0 93 28 81/57 98 Ventilator 100 08/02 0454 102.0 08/02 0430 102.4 08/02 0413 94 28 93/46 96 Ventilator 100 08/02 0338 102.6 93 85/44 96 Ventilator 08/02 0247 102.0 08/02 0210 96 29 110/53 99 08/02 0201 101.1 94 16 110/53 99 Ventilator 100 08/02 0115 92 16 94/58 98 Ventilator 100 08/02 0049 82 / 0043 97.5 / 0038 82 91/57 100 Ventilator 08/02 0032 83 16 91/57 100 08/02 0000 Ventilator 100 08/01 2359 79 24 63/37 Ventilator 08/01 2344 102.0 85 84/54 98 Ventilator 100 08/01 2329 79 71/48 99 08/01 2310 80 73/42 Ventilator 08/01 2250 84 118/77 98 Nasal 3.0 Cannula 08/01 1916 3.0 08/01 1821 98.2 81 20 115/58 97 Nasal 4.0 Cannula 08/01 1530 99 08/01 1438 98.1 84 22 110/62 100 Nasal 4.0 Cannula I&O 08/01 0800 08/01 1600 08/02 0000 Intake Total 0727 297 2875 Output Total 900 1225 455 Balance 180 -1125 695 General Appearance Alert, Oriented X3, Mild distress HEENT Normal exam, PERRLA, EOMI, Moist mucous membranes, - some blood present in the oral cavity - epistaxis has stopped Lungs - basilar ronchi, sub optimal air exchange noted Neck Supple, No JVD Cardiovascular tachycardic , - systolic ejection murmur, diastolic rumble Abdomen Soft, No tenderness, No guarding Extremities No cyanosis, No edema, Normal pulses, No tenderness Skin No Rashes Neurological Normal speech, Normal tone, Cranial nerves intact LAB Results Laboratory Tests 08/01 08/01 08/01 08/01 2235 2235 2235 2258 Blood Gas Sample Site LR Total CO2 (24.0 - 30.0 mmol/L) 28.1 ABG pH (7.35 - 7.45) 7.35 ABG pCO2 at Pt Temp (35 - 45 mmHg) 48.2 ABG pO2 at Pt Temp (60.0 - 80.0 mmHg) 449.0 ABG HCO3 (20.0 - 26.0 mmol/L) 26.7 ABG O2 Sat Calc/Elia (95.1 - 100.0 %) 100.7 ABG Base Excess (-6.0 - -6.0 mmol/L) 1.0 ABG Reduced Hgb (%) -0.7 ABG Carboxyhemoglobin (0.5 - 1.5 %) 1.5 ABG Methemoglobin (0.4 - 1.5 %) 1.3 Enoc Test YES Other Total Hgb (12.0 - 16.0 g/dL) 10.0 A-a O2 Gradient (7.0 - 14.0 mmHg) 214.1 Hgb O2 Saturation (95.0 - 100.0 %) 97.9 Respiration Rate (/MIN) 16 Vent Mode ANGELA FiO2 (20 - 101 %) 100 Tidal Volume (cc) 400 PEEP (cmH2O) 5 Pressure Support (cmH2O) 5 Blood Gas Comments VENT Chemistry Plasma Sodium (136 - 145 mmol/L) 136 Plasma Potassium (3.5 - 5.1 mmol/L) 4.2 Plasma Chloride (98 - 107 mmol/L) 100 CO2 (Enzymatic) (21 - 32 mmol/L) 33 BUN (7 - 18 mg/dL) 25 Creatinine (0.6 - 1.3 mg/dL) 1.2 Est GFR ( Amer) (mL/min) 58.83 Est GFR (Non-Af Amer) (mL/min) 48.54 Glucose (70 - 110 mg/dL) 147 Plasma Calcium (8.5 - 10.1 mg/dL) 8.0 Troponin (0.00 - 1.5 ng/mL) 0.05 B-Natriuretic Peptide (5 - 100 pg/ml) 724 Procalcitonin (0 - 0.5 ng/mL) <0.5 08/01 08/02 08/02 08/02 0201 8755 7970 0412 Blood Gas Sample Site LR Total CO2 (24.0 - 30.0 mmol/L) 29.4 ABG pH (7.35 - 7.45) 7.39 ABG pCO2 at Pt Temp (35 - 45 mmHg) 46.2 ABG pO2 at Pt Temp (60.0 - 80.0 mmHg) 91.3 ABG HCO3 (20.0 - 26.0 mmol/L) 28.0 ABG O2 Sat Calc/Elia (95.1 - 100.0 %) 98.3 ABG Base Excess (-6.0 - -6.0 mmol/L) 2.8 ABG Reduced Hgb (%) 1.6 ABG Carboxyhemoglobin (0.5 - 1.5 %) 1.7 ABG Methemoglobin (0.4 - 1.5 %) 1.7 Enoc Test YES Other Total Hgb (12.0 - 16.0 g/dL) 9.9 A-a O2 Gradient (7.0 - 14.0 mmHg) 213.9 Hgb O2 Saturation (95.0 - 100.0 %) 95.0 Respiration Rate (/MIN) 16 Vent Mode VENT FiO2 (20 - 101 %) 50 Tidal Volume (cc) 400 PEEP (cmH2O) 5 Pressure Support (cmH2O) 5 Chemistry Plasma Sodium (136 - 145 mmol/L) 136 Plasma Potassium (3.5 - 5.1 mmol/L) 3.6 Plasma Chloride (98 - 107 mmol/L) 100 CO2 (Enzymatic) (21 - 32 mmol/L) 27 BUN (7 - 18 mg/dL) 28 Creatinine (0.6 - 1.3 mg/dL) 1.2 Est GFR ( Amer) (mL/min) 58.83 Est GFR (Non-Af Amer) (mL/min) 48.54 Glucose (70 - 110 mg/dL) 165 Plasma Calcium (8.5 - 10.1 mg/dL) 7.6 Total Bilirubin (0.0 - 1.0 mg/dL) 1.1 AST (15 - 37 U/L) 50 ALT (12 - 78 U/L) 19 Alkaline Phosphatase (46 - 116 U/L) 96 Troponin (0.00 - 1.5 ng/mL) 0.30 Total Protein (6.4 - 8.2 g/dL) 5.9 Albumin (3.3 - 5.0 g/dL) 2.8 Coagulation INR (0.8 - 1.2) 2.7 Hematology WBC (4.5 - 11.5 K/uL) 7.7 RBC (4.00 - 5.20 M/uL) 3.15 Hgb (12.0 - 16.0 gm/dL) 10.0 Hct (36.0 - 46.0 %) 29.7 MCV (80 - 100 fL) 94 MCH (26 - 34 pg) 32 RDW (11.6 - 14.8 %) 16.9 Neut % (Auto) (50 - 75 %) 86.6 Lymph % (Auto) (25 - 40 %) 6.6 [place] % (Auto) (3 - 14 %) 6.7 Eos % (Auto) (0 - 4 %) 0.1 Baso % (Auto) (0 - 2 %) 0 Plt Count, EDTA (150 - 400 K/uL) 195 PUBS MCHC (31 - 37 g/dL) 34 Urines Urine Color YELLOW Urine Appearance CLEAR Urine pH (5.0 - 8.0) 6.0 Ur Specific Christoval (1.010 - 1.030) <= 1.005 Urine Protein (NEGATIVE) NEGATIVE Urine Ketones (NEGATIVE) NEGATIVE Urine Blood (NEGATIVE) NEGATIVE Urine Nitrite (NEGATIVE) NEGATIVE Urine Bilirubin (NEGATIVE) NEGATIVE Urine Urobilinogen (0.2 - 1.0 EU/dL) 0.2 Ur Leukocyte Esterase (NEGATIVE) NEGATIVE Urine RBC (0 - 1 rbc/hpf) NONE SEEN Urine WBC (0 - 1 wbc/hpf) RARE Ur Epithelial Cells (0 - 5 EPI/hpf) NONE SEEN Urine Bacteria (NONE SEEN) NONE SEEN Urine Glucose (NEGATIVE) NEGATIVE Urine Comment CULT NOT INDICATED 08/02 08/02 08/02 08/02 0500 0515 0900 1205 Chemistry Lactic Acid (0.4 - 2.0 mmol/L) 1.3 Troponin (0.00 - 1.5 ng/mL) 0.13 Procalcitonin (0 - 0.5 ng/mL) 5.7 Coagulation INR Cancelled Microbiology Date/Time Procedure - Status Source Growth 08/02 523 Blood Culture - RECD BLOOD 08/02 514 Blood Culture - RECD BLOOD Assessment and Plan Problem List 1. Acute GI bleeding Plan - Pt was admitted for anemia from a presumed GI source - Pts inr was 3 and hemoglobin was 6.8 - Pt had 4 units transfused with an apporpiate response. currrently hgb is 10.3 - Pt has not had any other bleeding sources noted 2. Anemia Status Chronic Onset Date Unknown Plan - secondary to gi losses and chronic anti coagulation - appropriate response to transfusion - will continue to monitor hgb levels 3. Valvular heart disease Status Chronic Onset Date Unknown Plan - Pt has an artificial aortic and mitral valve - Pt is on coumadin for the same - Will obtain echocardiogram to assess heart disease 4. COPD exacerbation Plan - Pt has been having sub optimal air exchange - will continue with nebulizers and steroid therapy - will continue to monitor vitals as per nursing protocol 5. Epistaxis Plan - currently resolved - estimated blood loss is 50 ml
--- NOTE | 2016-08-01 23:35 | DIAGNOSTIC IMAGING REPORT ---
PROCEDURE: XR CHEST 1 VIEW INDICATION: Respiratory failure. TECHNIQUE: Portable AP view (2220 hours). COMPARISON: Compared to chest x-ray on 07/31/2016. FINDINGS: Allowing for suboptimal inspiration, there is development of mild pulmonary vascular congestion and mild left basilar volume loss. Status post median sternotomy. Marked cardiomegaly is unchanged. Mediastinum is normal. Thorax is unchanged. IMPRESSION: 1. Development of mild pulmonary congestion suggest increased fluid status or occult congestive heart failure. 2. Marked cardiomegaly (no change). 3. Mild volume loss at the left lung base. 4. Findings discussed with Dr. Martini.
--- NOTE | 2016-08-01 23:37 | DIAGNOSTIC IMAGING REPORT ---
PROCEDURE: XR CHEST 1 VIEW INDICATION: INTUBATION' TECHNIQUE: Portable AP view (2240 hours). COMPARISON: Compared to chest x-ray earlier today (08/01/2016, 2220 hours). FINDINGS: Placement of ET tube in satisfactory position. Lungs are clear with resolution of pulmonary vascular congestion and resolution of left basilar volume loss. Marked cardiomegaly. Status post median sternotomy. Mediastinum is normal. Thorax is normal. IMPRESSION: 1. Placement of ET tube in satisfactory position (2 cm above the umm). 2. Resolution of congestive failure and pulmonary edema. 3. Resolution of left basilar volume loss. 4. Findings discussed with Dr. Martini.
[2016-08-02] VITALS (42 sets, daily range): BP systolic 75–124; BP diastolic 41–68
--- NOTE | 2016-08-02 05:19 | Progress Note ---
Late Entry Date/Time Late Entry Date and Time LATE ENTRY Date of visit: August 01, 2016 Time of visit: 23:30 Subjective General Note Date: August 01, 2016 Admission Date: July 31, 2016 Hospital Day: 2 PCP: Carmen Nelson MD Status: Inpatient Advanced Directive: FULL CODE Room: 304 Brief History: The patient is a 61-year-old female with a significant past medical history of congestive heart failure, chronic obstructive pulmonary disease, valvular heart disease status post aortic/mitral valve replacement, hypothyroidism, gastroesophageal reflux, atrial fibrillation, chronic pain syndrome, and chronic anticoagulation, who presented to [facility] Emergency Department on the day of admission with complaints of shortness of breath. [facility] ER evaluation was consistent with exacerbation of COPD, anemia-H&H 6.8/20.2, and possible early CHF. Secondary to the above, the patient was admitted by Lew Martini M.D. for further evaluation and treatment. The patient developed increasing shortness of breath on the evening of August 01, 2016. This progressed into respiratory distress requiring transfer to medical intensive care unit and subsequent intubation with mechanical ventilation. Arterial blood gas showed respiratory acidosis hypoxemia and hypercarbia (pH 7.14, PCO2 84.8, PO2 54.3, base deficit -0.4). Findings were consistent with exacerbation COPD/CHF. Troponin, lactic acid, Procalcitonin were unremarkable. Patient did exhibit normal WBC with left shift. Urinalysis was unremarkable. Blood cultures obtained. Subjective: The patient exhibited shortness of breath with respiratory distress. Altered mental status with decreased responsiveness/lethargy Patient requests: None Physical Exam Vital Signs / I&Os Vital Signs Date Time Temp Pulse Resp B/P Pulse O2 O2 Flow FiO2 Ox Delivery Rate 08/02 0454 102.0 08/02 0430 102.4 08/02 0413 94 28 93/46 96 Ventilator 100 08/02 0338 102.6 93 85/44 96 Ventilator 08/02 0247 102.0 08/02 0210 96 29 110/53 99 08/02 0201 101.1 94 16 110/53 99 Ventilator 100 08/02 0115 92 16 94/58 98 Ventilator 100 08/02 0049 82 08/02 0043 97.5 08/02 0038 82 91/57 100 Ventilator 08/02 0032 83 16 91/57 100 08/02 0000 Ventilator 100 08/01 2359 79 24 63/37 Ventilator 08/01 2344 102.0 85 84/54 98 Ventilator 100 08/01 2329 79 71/48 99 08/01 2310 80 73/42 Ventilator 08/01 2250 84 118/77 98 Nasal 3.0 Cannula 08/01 1916 3.0 08/01 1821 98.2 81 20 115/58 97 Nasal 4.0 Cannula 08/01 1530 99 08/01 1438 98.1 84 22 110/62 100 Nasal 4.0 Cannula 08/01 1323 4.0 08/01 1144 98.2 69 22 116/58 98 Nasal 4.0 Cannula 08/01 1028 4.0 08/01 0802 Nasal 4.0 Cannula 08/01 0800 90 / 0742 90 22 119/67 95 Nasal 4.0 Cannula 08/01 0700 98.4 63 22 118/59 95 Nasal 4.0 Cannula 08/01 0658 4.0 08/01 0634 98.2 70 22 103/70 100 Nasal 4.0 Cannula 08/01 0600 71 18 117/95 98 Nasal 4.0 Cannula I&O 08/02 0000 08/01 1600 08/01 0800 Intake Total 6005 209 1514 Output Total 455 1225 900 Balance 695 -1125 180 General Appearance Severe distress, decreased responsiveness. Lungs Decreased air movement bilaterally. Diffuse rhonchi/basilar rales. Bilateral expiratory wheezes. Cardiovascular mild tachycardia, heart sounds unchanged. Abdomen Normal bowel sounds, Soft Extremities No cyanosis, No clubbing Neurological No lateralizing signs Psych/Mental Status Confused, Decreased responsiveness LAB Results Laboratory Tests 08/02 08/02 08/02 08/02 0515 0415 0418 6566 Blood Gas Sample Site LR Total CO2 (24.0 - 30.0 mmol/L) 29.4 ABG pH (7.35 - 7.45) 7.39 ABG pCO2 at Pt Temp (35 - 45 mmHg) 46.2 ABG pO2 at Pt Temp (60.0 - 80.0 mmHg) 91.3 ABG HCO3 (20.0 - 26.0 mmol/L) 28.0 ABG O2 Sat Calc/Elia (95.1 - 100.0 %) 98.3 ABG Base Excess (-6.0 - -6.0 mmol/L) 2.8 ABG Reduced Hgb (%) 1.6 ABG Carboxyhemoglobin (0.5 - 1.5 %) 1.7 ABG Methemoglobin (0.4 - 1.5 %) 1.7 Enoc Test YES Other Total Hgb (12.0 - 16.0 g/dL) 9.9 A-a O2 Gradient (7.0 - 14.0 mmHg) 213.9 Hgb O2 Saturation (95.0 - 100.0 %) 95.0 Respiration Rate (/MIN) 16 Vent Mode VENT FiO2 (20 - 101 %) 50 Tidal Volume (cc) 400 PEEP (cmH2O) 5 Pressure Support (cmH2O) 5 Chemistry Plasma Sodium (136 - 145 mmol/L) 136 Plasma Potassium (3.5 - 5.1 mmol/L) 3.6 Plasma Chloride (98 - 107 mmol/L) 100 CO2 (Enzymatic) (21 - 32 mmol/L) 27 BUN (7 - 18 mg/dL) 28 Creatinine (0.6 - 1.3 mg/dL) 1.2 Est GFR ( Amer) (mL/min) 58.83 Est GFR (Non-Af Amer) (mL/min) 48.54 Glucose (70 - 110 mg/dL) 165 Lactic Acid Pending Plasma Calcium (8.5 - 10.1 mg/dL) 7.6 Total Bilirubin (0.0 - 1.0 mg/dL) 1.1 AST (15 - 37 U/L) 50 ALT (12 - 78 U/L) 19 Alkaline Phosphatase (46 - 116 U/L) 96 Troponin Pending Total Protein (6.4 - 8.2 g/dL) 5.9 Albumin (3.3 - 5.0 g/dL) 2.8 Coagulation INR (0.8 - 1.2) 2.7 Hematology WBC (4.5 - 11.5 K/uL) 7.7 RBC (4.00 - 5.20 M/uL) 3.15 Hgb (12.0 - 16.0 gm/dL) 10.0 Hct (36.0 - 46.0 %) 29.7 MCV (80 - 100 fL) 94 MCH (26 - 34 pg) 32 RDW (11.6 - 14.8 %) 16.9 Neut % (Auto) (50 - 75 %) 86.6 Lymph % (Auto) (25 - 40 %) 6.6 Arthur % (Auto) (3 - 14 %) 6.7 Eos % (Auto) (0 - 4 %) 0.1 Baso % (Auto) (0 - 2 %) 0 Plt Count, EDTA (150 - 400 K/uL) 195 PUBS MCHC (31 - 37 g/dL) 34 08/01 08/01 08/01 08/01 2345 2258 2235 2235 Blood Gas Sample Site LR Total CO2 (24.0 - 30.0 mmol/L) 28.1 ABG pH (7.35 - 7.45) 7.35 ABG pCO2 at Pt Temp (35 - 45 mmHg) 48.2 ABG pO2 at Pt Temp (60.0 - 80.0 mmHg) 449.0 ABG HCO3 (20.0 - 26.0 mmol/L) 26.7 ABG O2 Sat Calc/Elia (95.1 - 100.0 %) 100.7 ABG Base Excess (-6.0 - -6.0 mmol/L) 1.0 ABG Reduced Hgb (%) -0.7 ABG Carboxyhemoglobin (0.5 - 1.5 %) 1.5 ABG Methemoglobin (0.4 - 1.5 %) 1.3 Enoc Test YES Other Total Hgb (12.0 - 16.0 g/dL) 10.0 A-a O2 Gradient (7.0 - 14.0 mmHg) 214.1 Hgb O2 Saturation (95.0 - 100.0 %) 97.9 Respiration Rate (/MIN) 16 Vent Mode ANGELA FiO2 (20 - 101 %) 100 Tidal Volume (cc) 400 PEEP (cmH2O) 5 Pressure Support (cmH2O) 5 Blood Gas Comments VENT Chemistry Plasma Sodium (136 - 145 mmol/L) 136 Plasma Potassium (3.5 - 5.1 mmol/L) 4.2 Plasma Chloride (98 - 107 mmol/L) 100 CO2 (Enzymatic) (21 - 32 mmol/L) 33 BUN (7 - 18 mg/dL) 25 Creatinine (0.6 - 1.3 mg/dL) 1.2 Est GFR ( Amer) (mL/min) 58.83 Est GFR (Non-Af Amer) (mL/min) 48.54 Glucose (70 - 110 mg/dL) 147 Plasma Calcium (8.5 - 10.1 mg/dL) 8.0 Troponin (0.00 - 1.5 ng/mL) 0.05 Procalcitonin (0 - 0.5 ng/mL) <0.5 Urines Urine Color YELLOW Urine Appearance CLEAR Urine pH (5.0 - 8.0) 6.0 Ur Specific [place] (1.010 - 1.030) <= 1.005 Urine Protein (NEGATIVE) NEGATIVE Urine Ketones (NEGATIVE) NEGATIVE Urine Blood (NEGATIVE) NEGATIVE Urine Nitrite (NEGATIVE) NEGATIVE Urine Bilirubin (NEGATIVE) NEGATIVE Urine Urobilinogen (0.2 - 1.0 EU/dL) 0.2 Ur Leukocyte Esterase (NEGATIVE) NEGATIVE Urine RBC (0 - 1 rbc/hpf) NONE SEEN Urine WBC (0 - 1 wbc/hpf) RARE Ur Epithelial Cells (0 - 5 EPI/hpf) NONE SEEN Urine Bacteria (NONE SEEN) NONE SEEN Urine Glucose (NEGATIVE) NEGATIVE Urine Comment CULT NOT INDICATED 08/01 08/01 5311 0844 Chemistry Plasma Sodium (136 - 145 mmol/L) 134 Plasma Potassium (3.5 - 5.1 mmol/L) 3.5 Plasma Chloride (98 - 107 mmol/L) 96 CO2 (Enzymatic) (21 - 32 mmol/L) 30 BUN (7 - 18 mg/dL) 24 Creatinine (0.6 - 1.3 mg/dL) 1.4 Est GFR ( Amer) (mL/min) 49.24 Est GFR (Non-Af Amer) (mL/min) 40.63 Glucose (70 - 110 mg/dL) 164 Plasma Calcium (8.5 - 10.1 mg/dL) 8.1 B-Natriuretic Peptide (5 - 100 pg/ml) 724 Coagulation INR (0.8 - 1.2) 3.0 Hematology WBC (4.5 - 11.5 K/uL) 4.6 RBC (4.00 - 5.20 M/uL) 3.13 Hgb (12.0 - 16.0 gm/dL) 9.9 Hct (36.0 - 46.0 %) 29.6 MCV (80 - 100 fL) 95 MCH (26 - 34 pg) 32 RDW (11.6 - 14.8 %) 16.4 Neut % (Auto) (50 - 75 %) 90.1 Lymph % (Auto) (25 - 40 %) 5.8 Arthur % (Auto) (3 - 14 %) 4.1 Eos % (Auto) (0 - 4 %) 0 Baso % (Auto) (0 - 2 %) 0 Plt Count, EDTA (150 - 400 K/uL) 143 PUBS MCHC (31 - 37 g/dL) 34 Microbiology Date/Time Procedure - Status Source Growth 08/01 225 Respiratory Culture - COLB SPUTUM 08/01 2257 Culture and Gram Stain - COLB SPUTUM 08/01 1210 Clostridium difficile Toxin A & B - COMP STOOL 08/01 121 Specimen Source - COMP STOOL Assessment and Plan Problem List 1. CHF (congestive heart failure) Status Chronic Onset Date Unknown Plan -Patient with findings of exacerbation of CHF -Patient is status post transfusion 3 units packed RBCs, questionable fluid overload -Elevated BNP -Chest x-ray suggestive of pulmonary edema/pulmonary congestion -Topical nitrates, ALEXANDRA inhibitor, Coreg, monitor -Intubation with mechanical ventilation as noted above. 2. COPD exacerbation Plan -Patient with findings of exacerbation of COPD. -Solu-Medrol, DuoNeb, respiratory support -Intubation with mechanical ventilation -Patient shows hypoxic/hypercapnic respiratory failure 3. SIRS (systemic inflammatory response syndrome) Status Acute Onset Date Unknown Plan -Patient was first syndrome -Chest x-ray unremarkable without evidence of infectious process -Urinalysis unremarkable -Blood cultures obtained 2 -Procalcitonin, lactic acid unremarkable -Empiric antibiotics Zosyn/Zithromax. No clear evidence of infectious process possible aspiration with altered mental status -Serial CBC, lactic acid, repeat Procalcitonin in a.m. -Patient appears fluid overloaded -Pressors as needed for hypotension-Levophed Current status: Critical, unstable Anticipated discharge date: Anticipated discharge 3-4 days Anticipated discharge placement: Home Patient care time: Critical care time time spent in one-on-one care, chart review, patient interview, physical exam, CPOE, lab and x-ray review, and care documentation: 75 minutes Visit to patient today: Multiple Complexity of care: High
--- NOTE | 2016-08-02 07:11 | DIAGNOSTIC IMAGING REPORT ---
PROCEDURE: XR CHEST 1 VIEW INDICATION: Follow up intubation. NG tube placement. TECHNIQUE: Portable AP view (0235 hours). COMPARISON: Compared to chest x-ray on 08/01/2016 (2240 hours). FINDINGS: Placement of NG tube with proximal port and distal esophagus (may be advanced 5-10 cm). ET tube is in migrated caudally and 0.5 cm above the umm. Lungs are clear. Marked cardiomegaly (no change). Thorax unchanged. . IMPRESSION: 1. Placement of NG tube which is somewhat high in position (may be advance 5-10 cm). 2. Migration of ET tube caudally which is borderline low (0.5 cm above the umm). 3. Marked cardiomegaly (no change). 4. Findings called to ICU.
--- NOTE | 2016-08-02 12:42 | DIAGNOSTIC IMAGING REPORT ---
PROCEDURE: XR CHEST 1 VIEW INDICATION: PICC PLACEMENT TECHNIQUE: Portable AP view 12:18 p.m. COMPARISON: Chest x-ray 08/02/2016 at 02:36 a.m. FINDINGS: Interval placement of a right PICC line with the tip at the SVC/right atrial junction. Stable marked cardiomegaly. Sternotomy. Lungs are clear. Thorax is normal. IMPRESSION: 1. Right PICC line in satisfactory position. Results called to respiratory (Louis) 2. Stable ET and NG tubes 3. Sternotomy with stable marked cardiomegaly
--- NOTE | 2016-08-02 17:08 | DIAGNOSTIC IMAGING REPORT ---
PROCEDURE: CT ABD/PELVIS WITH CONTRAST INDICATION: Septic shock. Abdominal pain. Cardiac disease. TECHNIQUE: 50 ml of Isovue 300 (one half-dose) were injected intravenously and axial images were obtained of the entire abdomen and pelvis with sagittal and coronal reformations. COMPARISON: Comparison is made to CT abdomen pelvis on 03/06/2013. FINDINGS: ABDOMEN: There is a marked mucosal thickening in the right and proximal transverse colon. The rest of the colon is normal. Small bowel pattern is and appendix are normal. Status post cholecystectomy (surgical clips) with chronic dilation of the common bile duct (12 mm). No evidence of intrahepatic ductal dilation. Marked distention of the hepatic veins with chronic passive congestion of the liver and probable cirrhosis. In addition, there are multiple mesenteric varices. There is an enlarged left adrenal nodule measuring 3 cm (previously 1.5 cm). Mild splenomegaly (13 cm). Pancreas, kidneys, and aorta are normal. Marked cardiomegaly. NG tube in gastric fundus. PELVIS: Uterus and adnexal structures are normal. Nelson catheter in decompressed urinary bladder. No evidence of free fluid. IMPRESSION: 1. Marked mucosal thickening of the right and proximal transverse colon. Consider infectious colitis (e.g., Salmonella, Shigella, pseudomembranous), idiopathic colitis (e.g., Crohn disease), or ischemic colitis (e.g., embolic). 2. Chronic congestive heart failure with passive congestion and cirrhosis of the liver. Associated intra-abdominal varices. 3. Mild splenomegaly (13 cm). 4. Status post cholecystectomy with chronically dilated common bile duct (12 mm). 5. Moderate increase in 3 cm left adrenal nodule (previously 1.5 cm). Consider progression of benign adenoma or neoplastic lesion. Follow-up CT /MRI studies is recommended after the patient's acute illness. 6. Findings discussed with Dr. Kwan Elizondo. All CT scans at this facility use dose modulation, iterative reconstruction, and/or weight-based dosing when appropriate to reduce radiation dose to as low as reasonably achievable.
--- NOTE | 2016-08-02 18:24 | DIAGNOSTIC IMAGING REPORT ---
REFERRING PHYSICIAN/PROVIDER: Lew Martini MD CONSULTING SHOE ASSOCIATE: Scotty Sandoval MD PROCEDURE: M-mode 2D echocardiography with spectral and color flow Doppler TECHNICAL QUALITY: A very poor quality and technically difficult study INDICATION: CHF RHYTHM DURING PROCEDURE: Atrial fibrillation INTERPRETATIONS: LEFT VENTRICLE: Left ventricle was not well visualized. There appeared to be normal left ventricular size and wall thickness with an ejection fraction of approximate 45%. Distinct wall motion abnormalities were not clearly delineated due to a technically difficult study. There is abnormal septal motion noted diastolic function could not be accurately assessed RIGHT VENTRICLE: The right ventricle appeared to be dilated in size but was not very well visualized. ATRIA: Severe biatrial enlargement MITRAL VALVE: The mitral valve was not well visualized. Cannot clearly determine stenosis or regurgitation. There appeared to be mild to moderate mitral regurgitation noted. AORTIC VALVE: The aortic valve was not clearly visualized. It was very difficult to assess peak and mean gradients. TRICUSPID VALVE: The guide tricuspid valve was well visualized. There was severe tricuspid regurgitation noted. There was severe right ventricular systolic hypertension with an estimated RVSP of 77 mmHg. PULMONIC VALVE: There was mild pulmonic regurgitation noted GREAT VESSELS: The aortic root was not well visualized PERICARDIUM: There is no significant pericardial effusion noted IMPRESSION: 1. Technically difficult study limits full interpretation 2. Likely mildly reduced left ventricular systolic function 3. Dilated right ventricle likely with reduced right ventricular systolic function 4. Severe biatrial enlargement 5. The mitral and aortic valves were not well visualized 6. Severe tricuspid regurgitation 7. Moderate pulmonic regurgitation 8. Severe right ventricular systolic hypertension (RVSP = 77 mmHg)
--- NOTE | 2016-08-02 18:26 | Progress Note ---
Subjective General Patient seen and examined. Patient is currently intubated and on vasopressive agents. Patient is saturating appropriately and is requiring minimal PEEP. Patients vasopressive requirement has been stable throughout the day. Patient had a CT scan which revealed possible right and transverse colon thickening. There is a possibility that this could reperesent colitis with pseudomembrane formation however it is uncertain. Patient is otherwise stable. Constitutional Other (unable to ascertain ). Physical Exam Vital Signs / I&Os Vital Signs Date Time Temp Pulse Resp B/P Pulse O2 O2 Flow FiO2 Ox Delivery Rate 08/02 1821 98.2 84 28 99/51 99 Ventilator 35 02/14 1730 88 102/58 98 Ventilator 40.0 02/14 1700 85 22 100/57 100 Ventilator 40 02/14 1634 85 40 101/64 100 Ventilator 40 02/14 1604 92 16 93/54 98 Ventilator 40 02/14 1536 90 02/14 1500 87 21 110/55 100 Ventilator 50 02/14 1430 85 21 104/50 100 Ventilator 50 02/14 1400 100.4 86 109/46 Ventilator 50 02/14 1330 86 16 96/48 100 Ventilator 50 02/14 1310 79/52 02/14 1304 76/47 02/14 1300 90 16 80/45 100 Ventilator 02/14 1259 88 96/62 02/14 1247 100.0 88 16 98/55 100 Ventilator 50 02/14 1230 100.0 89 16 87/43 100 Ventilator 50 02/14 1200 91 16 102/47 100 Ventilator 40.0 02/14 1130 91 16 101/54 100 02/14 1100 83 16 90/44 100 Ventilator 50 02/14 1040 84 16 124/62 100 Ventilator 50 02/14 1029 99.7 80 16 87/51 100 Ventilator 50 02/14 1000 80 16 87/41 100 Ventilator 50 02/14 0937 82 16 78/47 100 Ventilator 50 02/14 0936 82 16 75/44 100 Ventilator 40.0 02/14 0834 85 02/14 0832 88 35 89/55 100 50 02/14 0800 Ventilator 50 02/14 0700 101.3 92 16 113/65 98 Ventilator 100 02/14 0609 102.0 95 28 88/56 99 Ventilator 100 02/14 0500 102.0 93 28 81/57 98 Ventilator 100 02/14 0454 102.0 02/14 0430 102.4 02/14 0413 94 28 93/46 96 Ventilator 100 08/02 0338 102.6 93 85/44 96 Ventilator 08/02 0247 102.0 08/02 0210 96 29 110/53 99 08/02 0201 101.1 94 16 110/53 99 Ventilator 100 08/02 0115 92 16 94/58 98 Ventilator 100 08/02 0049 82 / 0043 97.5 08/02 0038 82 91/57 100 Ventilator 08/02 0032 83 16 91/57 100 08/02 0000 Ventilator 100 08/01 2359 79 24 63/37 Ventilator 08/01 2344 102.0 85 84/54 98 Ventilator 100 08/01 2329 79 71/48 99 08/01 2310 80 73/42 Ventilator 08/01 2250 84 118/77 98 Nasal 3.0 Cannula 08/01 1916 3.0 I&O 08/01 0800 08/01 1600 08/02 0000 Intake Total 6470 815 9124 Output Total 900 1225 455 Balance 180 -1125 695 General Appearance Pt is intubated and sedated HEENT Atraumatic, PERRLA, EOMI, Moist mucous membranes, - no further epistaxis noted Lungs Clear to auscultation, Normal air movement Cardiovascular Regular rate and rhythm, Normal S1 and S2, No murmurs, gallops, rubs Abdomen Soft, No rebound, No masses, No hepatosplenomegaly Extremities No cyanosis, No clubbing, No edema, Normal pulses, Strength = upper ext's, Strength = lower ext's Skin No Breakdown LAB Results Laboratory Tests 08/01 08/01 08/01 08/01 2235 2235 2235 2251 Blood Gas Sample Site LR Total CO2 (24.0 - 30.0 mmol/L) 28.1 ABG pH (7.35 - 7.45) 7.35 ABG pCO2 at Pt Temp (35 - 45 mmHg) 48.2 ABG pO2 at Pt Temp (60.0 - 80.0 mmHg) 449.0 ABG HCO3 (20.0 - 26.0 mmol/L) 26.7 ABG O2 Sat Calc/Elia (95.1 - 100.0 %) 100.7 ABG Base Excess (-6.0 - -6.0 mmol/L) 1.0 ABG Reduced Hgb (%) -0.7 ABG Carboxyhemoglobin (0.5 - 1.5 %) 1.5 ABG Methemoglobin (0.4 - 1.5 %) 1.3 Enoc Test YES Other Total Hgb (12.0 - 16.0 g/dL) 10.0 A-a O2 Gradient (7.0 - 14.0 mmHg) 214.1 Hgb O2 Saturation (95.0 - 100.0 %) 97.9 Respiration Rate (/MIN) 16 Vent Mode ANGELA FiO2 (20 - 101 %) 100 Tidal Volume (cc) 400 PEEP (cmH2O) 5 Pressure Support (cmH2O) 5 Blood Gas Comments VENT Chemistry Plasma Sodium (136 - 145 mmol/L) 136 Plasma Potassium (3.5 - 5.1 mmol/L) 4.2 Plasma Chloride (98 - 107 mmol/L) 100 CO2 (Enzymatic) (21 - 32 mmol/L) 33 BUN (7 - 18 mg/dL) 25 Creatinine (0.6 - 1.3 mg/dL) 1.2 Est GFR ( Amer) (mL/min) 58.83 Est GFR (Non-Af Amer) (mL/min) 48.54 Glucose (70 - 110 mg/dL) 147 Plasma Calcium (8.5 - 10.1 mg/dL) 8.0 Troponin (0.00 - 1.5 ng/mL) 0.05 B-Natriuretic Peptide (5 - 100 pg/ml) 724 Procalcitonin (0 - 0.5 ng/mL) <0.5 08/01 08/02 08/02 08/02 9199 4038 7278 9504 Blood Gas Sample Site LR Total CO2 (24.0 - 30.0 mmol/L) 29.4 ABG pH (7.35 - 7.45) 7.39 ABG pCO2 at Pt Temp (35 - 45 mmHg) 46.2 ABG pO2 at Pt Temp (60.0 - 80.0 mmHg) 91.3 ABG HCO3 (20.0 - 26.0 mmol/L) 28.0 ABG O2 Sat Calc/Elia (95.1 - 100.0 %) 98.3 ABG Base Excess (-6.0 - -6.0 mmol/L) 2.8 ABG Reduced Hgb (%) 1.6 ABG Carboxyhemoglobin (0.5 - 1.5 %) 1.7 ABG Methemoglobin (0.4 - 1.5 %) 1.7 Enoc Test YES Other Total Hgb (12.0 - 16.0 g/dL) 9.9 A-a O2 Gradient (7.0 - 14.0 mmHg) 213.9 Hgb O2 Saturation (95.0 - 100.0 %) 95.0 Respiration Rate (/MIN) 16 Vent Mode VENT FiO2 (20 - 101 %) 50 Tidal Volume (cc) 400 PEEP (cmH2O) 5 Pressure Support (cmH2O) 5 Chemistry Plasma Sodium (136 - 145 mmol/L) 136 Plasma Potassium (3.5 - 5.1 mmol/L) 3.6 Plasma Chloride (98 - 107 mmol/L) 100 CO2 (Enzymatic) (21 - 32 mmol/L) 27 BUN (7 - 18 mg/dL) 28 Creatinine (0.6 - 1.3 mg/dL) 1.2 Est GFR ( Amer) (mL/min) 58.83 Est GFR (Non-Af Amer) (mL/min) 48.54 Glucose (70 - 110 mg/dL) 165 Plasma Calcium (8.5 - 10.1 mg/dL) 7.6 Total Bilirubin (0.0 - 1.0 mg/dL) 1.1 AST (15 - 37 U/L) 50 ALT (12 - 78 U/L) 19 Alkaline Phosphatase (46 - 116 U/L) 96 Troponin (0.00 - 1.5 ng/mL) 0.30 Total Protein (6.4 - 8.2 g/dL) 5.9 Albumin (3.3 - 5.0 g/dL) 2.8 Coagulation INR (0.8 - 1.2) 2.7 Hematology WBC (4.5 - 11.5 K/uL) 7.7 RBC (4.00 - 5.20 M/uL) 3.15 Hgb (12.0 - 16.0 gm/dL) 10.0 Hct (36.0 - 46.0 %) 29.7 MCV (80 - 100 fL) 94 MCH (26 - 34 pg) 32 RDW (11.6 - 14.8 %) 16.9 Neut % (Auto) (50 - 75 %) 86.6 Lymph % (Auto) (25 - 40 %) 6.6 [place] % (Auto) (3 - 14 %) 6.7 Eos % (Auto) (0 - 4 %) 0.1 Baso % (Auto) (0 - 2 %) 0 Plt Count, EDTA (150 - 400 K/uL) 195 PUBS MCHC (31 - 37 g/dL) 34 Urines Urine Color YELLOW Urine Appearance CLEAR Urine pH (5.0 - 8.0) 6.0 Ur Specific [place] (1.010 - 1.030) <= 1.005 Urine Protein (NEGATIVE) NEGATIVE Urine Ketones (NEGATIVE) NEGATIVE Urine Blood (NEGATIVE) NEGATIVE Urine Nitrite (NEGATIVE) NEGATIVE Urine Bilirubin (NEGATIVE) NEGATIVE Urine Urobilinogen (0.2 - 1.0 EU/dL) 0.2 Ur Leukocyte Esterase (NEGATIVE) NEGATIVE Urine RBC (0 - 1 rbc/hpf) NONE SEEN Urine WBC (0 - 1 wbc/hpf) RARE Ur Epithelial Cells (0 - 5 EPI/hpf) NONE SEEN Urine Bacteria (NONE SEEN) NONE SEEN Urine Glucose (NEGATIVE) NEGATIVE Urine Comment CULT NOT INDICATED 08/02 08/02 08/02 08/02 08/02 0500 0515 0900 1200 1205 Chemistry Lactic Acid (0.4 - 2.0 mmol/L) 1.3 Troponin (0.00 - 1.5 ng/mL) 0.13 C-Reactive Protein (0.0 - 0.9 mg/dL) 5.3 Procalcitonin (0 - 0.5 ng/mL) 5.7 Coagulation INR Cancelled Hematology ESR Westergren (0 - 30 mm/hr) 24 Microbiology Date/Time Procedure - Status Source Growth 08/02 523 Blood Culture - RECD BLOOD 08/02 514 Blood Culture - RECD BLOOD Assessment and Plan Problem List 1. SIRS (systemic inflammatory response syndrome) Status Acute Onset Date Unknown Plan - pt still has hypotension stemming from infection on unknown etiology - pts pressure has remained stable and there was no further pressor requirement - pt being treated with appropriate antibiotics, however flagyl was added - CT scan of abdomen shows right sided and transverse colon inflammation - possible colitis and c diff - will continue to monitor on the ventilator - 2. CKD (chronic kidney disease) stage 3, GFR 30-59 ml/min Status Chronic Onset Date Unknown Plan - stable - will continue with iv fluids and monitoring bmp 3. Hypoxia Plan - intubated currently stable
[2016-08-03] VITALS (26 sets, daily range): BP systolic 77–129; BP diastolic 40–78
--- NOTE | 2016-08-03 06:19 | DIAGNOSTIC IMAGING REPORT ---
PROCEDURE: XR CHEST 1 VIEW INDICATION: intubated TECHNIQUE: Portable AP view 05:26 a.m. COMPARISON: Chest x-ray 08/02/2016 FINDINGS: Stable right PICC line, ET and NG tubes. Lungs are clear. Sternotomy and stable marked cardiomegaly. Normal pulmonary vascularity. Thorax is normal. IMPRESSION: 1. Stable right PICC line, ET and NG tubes 2. Stable marked cardiomegaly
--- NOTE | 2016-08-03 18:57 | Progress Note ---
Subjective General Pt seen and examined. Patient is improving in comparison to yesterday. Her overall vasopressor requirment has been going down continuously throughout the day. Will gradually discontinue if possible. Patient additionally has been doing well on the ventilator. Patient will be extubated today as well. Constitutional Denies: Other (unable to assess given intub). Physical Exam Vital Signs / I&Os Vital Signs Date Time Temp Pulse Resp B/P Pulse O2 O2 Flow FiO2 Ox Delivery Rate 08/06 1610 93 18 91/73 98 Bipap 25 08/06 1536 92 08/06 1500 92 24 110/64 97 NC/FT 5.0 08/06 1412 97.3 08/06 1411 90 26 90/41 95 Bipap 5.0 08/06 1316 109 27 115/69 93 Bipap 25 08/06 1228 100 21 103/55 97 Bipap 25 08/06 1133 101 30 99/72 93 Bipap 25 08/06 1105 97.5 98 27 147/84 93 Bipap 25 08/06 0924 88 23 128/91 94 Bipap 25 08/06 0854 94 08/06 0830 Bipap 5.0 08/06 0825 94 24 121/92 93 Bipap 25 08/06 0718 90 24 103/75 97 Bipap 25 08/06 0620 97.5 112 24 128/70 97 Bipap 25 08/06 0500 98 25 140/85 96 Bipap 25 08/06 0400 108/63 08/06 0300 121/72 08/06 0200 96.6 88 22 123/66 98 Bipap 25 08/06 0117 86 22 113/68 90 /18 0001 120 18 0000 100 22 132/86 96 Bipap 25 08/05 2200 97.3 101 24 132/81 95 Bipap 30 08/05 2100 97.5 97 23 121/73 100 Bipap 30 08/05 2000 97.2 98 20 120/85 96 Bipap 30 08/05 1930 Bipap 25 08/05 1900 97.2 93 21 112/72 98 Bipap 30 08/05 1800 97.5 93 21 115/81 91 Bipap 30 I&O 08/05 0800 08/05 1600 08/06 0000 Intake Total 659 1169 Output Total 610 630 825 Balance 49 -630 344 General Appearance No acute distress, - intubated and sedated HEENT Atraumatic, PERRLA, Moist mucous membranes Lungs - good air movement bilaterally - minimal ronchi and crackles appreciated Neck No JVD, No masses Cardiovascular -tachycardic -regular rate and rythm Abdomen Normal bowel sounds, Soft, No tenderness Extremities No cyanosis, No clubbing, No edema, Normal pulses, No tenderness LAB Results Laboratory Tests 08/06 08/06 0200 0455 Blood Gas Sample Site RR Total CO2 (24.0 - 30.0 mmol/L) 27.8 ABG pH (7.35 - 7.45) 7.31 ABG pCO2 at Pt Temp (35 - 45 mmHg) 52.6 ABG pO2 at Pt Temp (60.0 - 80.0 mmHg) 74.2 ABG HCO3 (20.0 - 26.0 mmol/L) 26.2 ABG O2 Sat Calc/Elia (95.1 - 100.0 %) 94.5 ABG Base Excess (-6.0 - -6.0 mmol/L) -0.1 ABG Reduced Hgb (%) 5.4 ABG Carboxyhemoglobin (0.5 - 1.5 %) 2.0 ABG Methemoglobin (0.4 - 1.5 %) 0.2 Enoc Test YES Other Total Hgb (12.0 - 16.0 g/dL) 9.6 A-a O2 Gradient (7.0 - 14.0 mmHg) 40.4 Hgb O2 Saturation (95.0 - 100.0 %) 92.4 Respiration Rate (/MIN) 20 Vent Mode BIPAP FiO2 (20 - 101 %) 25 Pressure Support (cmH2O) 8 Chemistry Plasma Sodium (136 - 145 mmol/L) 147 Plasma Potassium (3.5 - 5.1 mmol/L) 4.7 Plasma Chloride (98 - 107 mmol/L) 114 CO2 (Enzymatic) (21 - 32 mmol/L) 25 BUN (7 - 18 mg/dL) 24 Creatinine (0.6 - 1.3 mg/dL) 0.9 Est GFR ( Amer) (mL/min) >60 Est GFR (Non-Af Amer) (mL/min) >60 Glucose (70 - 110 mg/dL) 149 Plasma Calcium (8.5 - 10.1 mg/dL) 8.6 Total Bilirubin (0.0 - 1.0 mg/dL) 1.0 AST (15 - 37 U/L) 34 ALT (12 - 78 U/L) 18 Alkaline Phosphatase (46 - 116 U/L) 54 Total Protein (6.4 - 8.2 g/dL) 6.2 Albumin (3.3 - 5.0 g/dL) 2.5 Coagulation Protein C Antigen Pending Hematology WBC (4.5 - 11.5 K/uL) 4.7 RBC (4.00 - 5.20 M/uL) 2.97 Hgb (12.0 - 16.0 gm/dL) 9.2 Hct (36.0 - 46.0 %) 28.7 MCV (80 - 100 fL) 96 MCH (26 - 34 pg) 31 RDW (11.6 - 14.8 %) 17.5 Neut % (Auto) (50 - 75 %) 93.5 Lymph % (Auto) (25 - 40 %) 2.3 [place] % (Auto) (3 - 14 %) 4.2 Eos % (Auto) (0 - 4 %) 0 Baso % (Auto) (0 - 2 %) 0 Plt Count, EDTA (150 - 400 K/uL) 121 PUBS MCHC (31 - 37 g/dL) 32 Assessment and Plan Problem List 1. SIRS (systemic inflammatory response syndrome) Status Acute Onset Date Unknown Plan - unknown etiology to why patient became so hypotensive - will continue to treat with broad spectrum antibiotics - currently patients overall vital signs and breathing ability is improving - will continue to obtain daily blood work - will continue to monitor abg when patient is on vent and when extubated - will transition to bipap when off of ventilator 2. CKD (chronic kidney disease) stage 3, GFR 30-59 ml/min Status Chronic Onset Date Unknown Plan - currently stable - will continue with IVF when patient is npo 3. CHF (congestive heart failure) Status Chronic Onset Date Unknown Plan - currently not in chf exacerbation - she is currently requiring vasopressive support - will gradually titrate down vasopressor and begin fluids 4. COPD exacerbation Plan - pt has good air exchange while on ventilator - given copd history will extubate and place on bipap - will continue to obtain bid abgs 5. Hematuria Plan - Pt has evidence of dark urine - will hold coumadin given hematuria - will continue to trend cbc and watch for further bleeing
[2016-08-04] VITALS (23 sets, daily range): BP systolic 90–155; BP diastolic 48–97
--- NOTE | 2016-08-04 06:59 | DIAGNOSTIC IMAGING REPORT ---
PROCEDURE: XR CHEST 1 VIEW INDICATION: Follow up intubation. TECHNIQUE: Portable AP view (0530 hours). COMPARISON: None. FINDINGS: ET tube, NG tube, and right central line are in satisfactory position. Marked cardiomegaly (no change). Lungs are clear. Status post median sternotomy. Thorax is normal. IMPRESSION: 1. Marked cardiomegaly. 2. Various tubes in satisfactory position. 3. Otherwise negative chest.
--- NOTE | 2016-08-04 19:02 | Progress Note ---
Subjective General Pt seen and examined this morning. Patient was extubated around [address] on bipap. Patient tolerated the extubation well however is very sedated and not communicating. Patient was later seen to be retaining CO2 on her ABG after extubation. Patient was placed on a higher dose of steroids and peep was increased. Repeat ABG shows improvement however not significant enough improvement that we can take patient off of bipap. Patient is otherwise hemodynamically stable. Constitutional Other (unable to assess given intub). Physical Exam Vital Signs / I&Os Vital Signs Date Time Temp Pulse Resp B/P Pulse O2 O2 Flow FiO2 Ox Delivery Rate 08/04 1907 97.9 109 20 100/71 100 Bipap 35 08/04 1759 113 22 105/67 98 Bipap 6.0 08/04 1717 95/61 08/04 1702 98.4 113 98 Bipap 35 08/04 1606 106 26 112/66 98 Bipap 6.0 08/04 1512 105 33 96/59 96 Bipap 6.0 08/04 1406 99.3 101 33 126/76 95 Bipap 35 08/04 1231 109 28 130/97 96 Bipap 35 08/04 1117 Bipap 08/04 1114 106 25 128/88 99 Bipap 35 08/04 0944 109 29 150/90 97 Bipap 35 08/04 0921 113 26 155/92 98 Bipap 35 08/04 0846 108 28 96 Mask 6.0 08/04 0815 63 16 113/83 100 Ventilator 35.0 08/04 0700 66 16 112/73 100 Ventilator 35.0 08/04 0600 97.9 84 16 90/50 100 Ventilator 35 08/04 0513 54 16 103/65 98 Ventilator 08/04 0414 64 16 102/48 97 Ventilator 08/04 0327 97.0 65 16 113/57 97 Ventilator 35 08/04 0211 97.2 59 16 98/50 98 08/04 0114 96.3 08/04 0110 66 16 103/53 98 Ventilator 35 08/04 0014 72 16 90/54 100 Ventilator 35 08/03 2355 65 08/03 2300 72 99/55 100 08/03 2219 73 11 110/73 94 Ventilator 35 08/039 64 11 104/52 97 Ventilator 35 08/03 2025 98 08/03 2001 Ventilator 35 08/03 1999 78 11 126/68 Ventilator 35 08/03 1924 109/49 I&O 08/03 0800 08/03 1600 08/04 0000 Intake Total 1287 998 253 Output Total 578 575 360 Balance 709 423 -107 General Appearance Cooperative, No acute distress HEENT Atraumatic, PERRLA, EOMI, Moist mucous membranes Lungs - course ronchi bilaterally - poor air exchange Cardiovascular Normal exam, Normal S1 and S2, No murmurs, gallops, rubs Abdomen Soft, No tenderness Extremities No edema, Normal pulses, No tenderness Skin No Rashes Neurological - pt is too sedated to obtain accurate exam Assessment and Plan Problem List 1. SIRS (systemic inflammatory response syndrome) Status Acute Onset Date Unknown Plan Pts vital signs improving as well as urine out put -pt was extubated and tolerated being off of ventilator but as planned patient was placed on bipap - pt is very slow to respond given sedation - will continue to monitor vital signs, blood work, and fluid balance - will continue with antibiotic regimen 2. COPD (chronic obstructive pulmonary disease) Plan - pt when extubated was still having sub optimal air exchange - will continue with steroid regimen - will continue with bipap - abgs bid as needed - if patient on post extubation abg was seen to have adequate blood gases with no hypercapnia 3. Pneumonia Plan - will continue with broad spectrum antibioitics - pneumonia unlikely source of infection - chest xray did not reveal significant infiltrates 4. Valvular heart disease Status Chronic Onset Date Unknown Plan - pt having hematuria - will hold coumadin for the time being 5. Acute GI bleeding Plan - resolved
[2016-08-05] VITALS (23 sets, daily range): BP systolic 88–140; BP diastolic 48–90
--- NOTE | 2016-08-05 08:04 | DIAGNOSTIC IMAGING REPORT ---
PROCEDURE: XR CHEST 1 VIEW INDICATION: shortness of breath, follow-up TECHNIQUE: Portable AP view 07:51 a.m. COMPARISON: Chest x-ray 08/04/2016 FINDINGS: ET and NG tubes removed. Stable right PICC line. Sternotomy and stable marked cardiomegaly lungs are clear. Bony thorax is unremarkable. IMPRESSION: 1. ET and NG tubes removed 2. Stable right PICC line 3. Stable marked cardiomegaly
--- NOTE | 2016-08-05 19:16 | Progress Note ---
Late Entry Date/Time Late Entry Date and Time LATE ENTRY Date of visit: Time of visit: Subjective General Patient seen and examined this morning. Patient is seen to have very poor air exchange on exam. Patient additionally was seen to be hypercapnic on the am abg. Patient is otherwise stable and did not have any problems overnight. Patient additionally was seen to have very significant diarrhea, more than 3 episodes in one day. Patient did not have any dark stools nor was there any evidence of blood in them. Will continue to monitor. Constitutional Denies: Other (pt too tired on bipap to speak). Physical Exam Vital Signs / I&Os Vital Signs Date Time Temp Pulse Resp B/P Pulse O2 O2 Flow FiO2 Ox Delivery Rate 08/06 1700 96 17 116/75 97 Bipap 25 08/06 1610 93 18 91/73 98 Bipap 25 08/06 1536 92 08/06 1500 92 24 110/64 97 NC/FT 5.0 08/06 1412 97.3 08/06 1411 90 26 90/41 95 Bipap 5.0 08/06 1316 109 27 115/69 93 Bipap 25 08/06 1228 100 21 103/55 97 Bipap 25 08/06 1133 101 30 99/72 93 Bipap 25 08/06 1105 97.5 98 27 147/84 93 Bipap 25 08/06 0924 88 23 128/91 94 Bipap 25 08/06 0854 94 /18 0830 Bipap 5.0 08/06 0825 94 24 121/92 93 Bipap 25 08/06 0718 90 24 103/75 97 Bipap 25 08/06 0620 97.5 112 24 128/70 97 Bipap 25 08/06 0500 98 25 140/85 96 Bipap 25 08/06 0400 108/63 /18 0300 121/72 02/18 0200 96.6 88 22 123/66 98 Bipap 25 08/06 0117 86 22 113/68 90 02/18 0001 120 02/18 0000 100 22 132/86 96 Bipap 25 08/05 2200 97.3 101 24 132/81 95 Bipap 30 08/05 2100 97.5 97 23 121/73 100 Bipap 30 08/05 2000 97.2 98 20 120/85 96 Bipap 30 08/05 1930 Bipap 25 02/17 1900 97.2 93 21 112/72 98 Bipap 30 08/05 1800 97.5 93 21 115/81 91 Bipap 30 I&O 08/05 0800 08/05 1600 08/06 0000 Intake Total 659 1169 Output Total 610 630 825 Balance 49 -630 344 General Appearance No acute distress HEENT PERRLA, EOMI, Moist mucous membranes Lungs - bilateral ronchi - bilateral wheezes - poor air exchange even on bipap Cardiovascular Normal S1 and S2, - murmurs from artificial valves Abdomen Normal bowel sounds, Soft, No guarding, No rebound Extremities No cyanosis, No clubbing, Normal pulses, No tenderness Skin No Rashes Psych/Mental Status - pt very sedated and not communicating well - pt makes effort to speak to you when on bipap however when taken off does not speak LAB Results Laboratory Tests 08/06 08/06 08/06 0200 0455 1710 Blood Gas Sample Site RR LR Total CO2 (24.0 - 30.0 mmol/L) 27.8 26.5 ABG pH (7.35 - 7.45) 7.31 7.38 ABG pCO2 at Pt Temp (35 - 45 mmHg) 52.6 42.9 ABG pO2 at Pt Temp (60.0 - 80.0 mmHg) 74.2 75.8 ABG HCO3 (20.0 - 26.0 mmol/L) 26.2 25.2 ABG O2 Sat Calc/Elia (95.1 - 100.0 %) 94.5 96.1 ABG Base Excess (-6.0 - -6.0 mmol/L) -0.1 0.0 ABG Reduced Hgb (%) 5.4 3.8 ABG Carboxyhemoglobin (0.5 - 1.5 %) 2.0 2.1 ABG Methemoglobin (0.4 - 1.5 %) 0.2 0.7 Enoc Test YES YES Other Total Hgb (12.0 - 16.0 g/dL) 9.6 9.4 A-a O2 Gradient (7.0 - 14.0 mmHg) 40.4 49.4 Hgb O2 Saturation (95.0 - 100.0 %) 92.4 93.4 Temperature (C) 37 Respiration Rate (/MIN) [address] FiO2 (20 - 101 %) 25 25 Tidal Volume (cc) 470 PEEP (cmH2O) 8 Pressure Support (cmH2O) 8 18 Chemistry Plasma Sodium (136 - 145 mmol/L) 147 Plasma Potassium (3.5 - 5.1 mmol/L) 4.7 Plasma Chloride (98 - 107 mmol/L) 114 CO2 (Enzymatic) (21 - 32 mmol/L) 25 BUN (7 - 18 mg/dL) 24 Creatinine (0.6 - 1.3 mg/dL) 0.9 Est GFR ( Amer) (mL/min) >60 Est GFR (Non-Af Amer) (mL/min) >60 Glucose (70 - 110 mg/dL) 149 Plasma Calcium (8.5 - 10.1 mg/dL) 8.6 Total Bilirubin (0.0 - 1.0 mg/dL) 1.0 AST (15 - 37 U/L) 34 ALT (12 - 78 U/L) 18 Alkaline Phosphatase (46 - 116 U/L) 54 Total Protein (6.4 - 8.2 g/dL) 6.2 Albumin (3.3 - 5.0 g/dL) 2.5 Coagulation Protein C Antigen Pending Hematology WBC (4.5 - 11.5 K/uL) 4.7 RBC (4.00 - 5.20 M/uL) 2.97 Hgb (12.0 - 16.0 gm/dL) 9.2 Hct (36.0 - 46.0 %) 28.7 MCV (80 - 100 fL) 96 MCH (26 - 34 pg) 31 RDW (11.6 - 14.8 %) 17.5 Neut % (Auto) (50 - 75 %) 93.5 Lymph % (Auto) (25 - 40 %) 2.3 [place] % (Auto) (3 - 14 %) 4.2 Eos % (Auto) (0 - 4 %) 0 Baso % (Auto) (0 - 2 %) 0 Plt Count, EDTA (150 - 400 K/uL) 121 PUBS MCHC (31 - 37 g/dL) 32 Assessment and Plan Problem List 1. SIRS (systemic inflammatory response syndrome) Status Acute Onset Date Unknown Plan - pts blood pressure and blood work have improved immensely - pt no longer needs any vasopressive agents - will continue to monitor on tele - will continue with broad specturm coverage with zosyn and flagyl - staph aureus grew in the blood, supsicious for possible endocarditis - once stabilized will recommend obtaining RENATE 2. COPD (chronic obstructive pulmonary disease) Plan - Pt still having persistent bilateral wheezes on exam in the am - pt additionally has course ronchi bilaterally on exam - steroids titrated up due to poor air exchange - will obtain repeat abg shortyly 3. Valvular heart disease Status Chronic Onset Date Unknown Plan - pt still having hematuria - will hold coumadin for the time being - will give lmwh for the time being 4. Hematuria Plan - pt having persistent hematuria without significant drop in the hemoglobin. - will continue to monitor 5. Hypoxia Plan - resolved - currently trying to combat hypercapnia - will incrase ipap and continue with steroids
[2016-08-06] VITALS (24 sets, daily range): BP systolic 90–147; BP diastolic 41–92
--- NOTE | 2016-08-06 08:27 | ED MED RECONCILIATION SUMMARY ---
Patient: GINGER JOHNSON Medication Reconciliation Report [facility] VisitID: [id number] [address] [place] [address] 61y, F Registration Date/Time: 07/31/2016 Weight: 47.6 kg Height/Length: 60 in. BMI: 20.5 ALLERGIES: No Known Drug Allergy The patient's Home Medications are listed below: THE FOLLOWING MEDICATIONS NEED TO BE RECONCILED: Advair Diskus Inhalation 1 puff, 2x a day Albuterol Sulfate Inhalation 2 puffs Calcium 600+D Oral Carvedilol Phosphate ER Oral (10 mg), bid Coumadin Oral 5 mg, daily, Th-Sat 5mgall other days 2.5 mg Cyanocobalamin 1000 mg, daily Ferrous Sulfate Oral 324 mg, 2x a day Folic Acid Oral 1 mg, daily Furosemide Oral (20 mg) 2 tablets, 2x a day Incruse ellipta 62.5 mcg/inhalation, daily Levothyroxine Sodium Oral 137 mcg, daily Lisinopril Oral 5 mg, daily Omeprazole Oral 20 mg, 2x a day OxyCODONE HCl Oral 5 mg, 1-2 tabs 2-3 times daily PredniSONE Oral 10 mg, daily ProAir HFA Inhalation Promethazine HCl Oral 12.5 mg, daily Senna Oral 2 tablets prn at hs The source(s) of the original Home Medication information: patient The following Medications were given to the patient in the Emergency Department: Duoneb [Neb Tx] Neb TX 1 unit dose, administered: 07/31/2016 3:08:00 PM SOLU-MEDROL [IVP] IVP 125 mg, administered: 07/31/2016 3:37:00 PM Zofran [IVP] IVP 4 mg, administered: 07/31/2016 4:08:00 PM albuterol neb Neb TX 7.5 mg, administered: 07/31/2016 4:00:00 PM IV NS IV Fluids bolus 0, then 250 mL/hr, administered: 07/31/2016 5:18:00 PM The following Medications were prescribed to the patient: None.
--- NOTE | 2016-08-06 08:27 | ED DISCHARGE INSTRUCTIONS ---
Patient: GINGER JOHNSON General Instructions [facility] VisitID: [id number] [address] [place] [address] 61y, F Registration Date/Time: 07/31/2016 anemia, acute blood loss GI bleed, acute incidental left adrenal mass enlarged. (Electronically signed by Jose Martínez Dr. 08/06/2016 8:26)
--- NOTE | 2016-08-06 08:27 | ED MAR SUMMARY ---
..... Medication Administration Record [facility] [address] [place] [address] Patient: GINGER JOHNSON Visit ID: [id number] 61y, F Weight: 47.6 kg Height/Length: 60 in BMI: 20.5 ALLERGIES: No Known Drug Allergy Given 15:08 07/31/2016 Scotty Estrella, Medication Administered: DUONEB [NEB TX] (IPRATROPIUM-ALBUTEROL), Dose: 1 unit dose Nebulizer Neb TX. Medication Ordered: DuoNeb Neb Tx 1 unit dose (NOW). Given 15:37 07/31/2016 Annalisa Newman R.N. Medication Administered: SOLU-MEDROL [IVP] (METHYLPREDNISOLONE SODIUM SUCC), Dose: 125 mg IVP over 2 minute(s), Site: #1 right forearm. Medication Ordered: Solu-MEDROL IV 125 mg (NOW). Given 16:00 07/31/2016 Annalisa Newman R.N. Medication Administered: albuterol neb *, Dose: 7.5 mg * Neb TX. Medication Ordered: Albuterol Neb Tx 7.5 mg (one now over an hour). Given 16:08 07/31/2016 Guido Marquez R.N. Medication Administered: ZOFRAN [IVP] (ONDANSETRON HCL), Dose: 4 mg IVP over 2 minute(s), Site: #1 right forearm. Medication Ordered: Zofran IV 4 mg (NOW). Start 17:18 07/31/2016 Annalisa Newman R.N., Stop 19:02 07/31/2016 Annalisa Newman R.N. Medication Administered: IV NS (SALINE), Dose: IV Fluids over 1 hour(s), Rate: 250 mL/hr, Dispensed: 250 mL bag, Site: #1 right forearm. Medication Ordered: IV NS : initial bolus 250 mL (1000 mL/hr), then none - for X1 (NOW).
--- NOTE | 2016-08-06 08:27 | ED DISCHARGE INSTRUCTIONS ---
Patient: GINGER JOHNSON General Instructions [facility] VisitID: [id number] [address] [place] [address] 61y, F Registration Date/Time: 07/31/2016 anemia, acute blood loss GI bleed, acute incidental left adrenal mass enlarged. (Electronically signed by Jose Martínez Dr. 08/06/2016 8:26)
--- NOTE | 2016-08-06 08:27 | ED MED RECONCILIATION SUMMARY ---
Patient: GINGER JOHNSON Medication Reconciliation Report [facility] VisitID: [id number] [address] [place] [address] 61y, F Registration Date/Time: 07/31/2016 Weight: 47.6 kg Height/Length: 60 in. BMI: 20.5 ALLERGIES: No Known Drug Allergy The patient's Home Medications are listed below: THE FOLLOWING MEDICATIONS NEED TO BE RECONCILED: Advair Diskus Inhalation 1 puff, 2x a day Albuterol Sulfate Inhalation 2 puffs Calcium 600+D Oral Carvedilol Phosphate ER Oral (10 mg), bid Coumadin Oral 5 mg, daily, Th-Sat 5mgall other days 2.5 mg Cyanocobalamin 1000 mg, daily Ferrous Sulfate Oral 324 mg, 2x a day Folic Acid Oral 1 mg, daily Furosemide Oral (20 mg) 2 tablets, 2x a day Incruse ellipta 62.5 mcg/inhalation, daily Levothyroxine Sodium Oral 137 mcg, daily Lisinopril Oral 5 mg, daily Omeprazole Oral 20 mg, 2x a day OxyCODONE HCl Oral 5 mg, 1-2 tabs 2-3 times daily PredniSONE Oral 10 mg, daily ProAir HFA Inhalation Promethazine HCl Oral 12.5 mg, daily Senna Oral 2 tablets prn at hs The source(s) of the original Home Medication information: patient The following Medications were given to the patient in the Emergency Department: Duoneb [Neb Tx] Neb TX 1 unit dose, administered: 07/31/2016 3:08:00 PM SOLU-MEDROL [IVP] IVP 125 mg, administered: 07/31/2016 3:37:00 PM Zofran [IVP] IVP 4 mg, administered: 07/31/2016 4:08:00 PM albuterol neb Neb [place] 7.5 mg, administered: 07/31/2016 4:00:00 PM IV NS IV Fluids bolus 0, then 250 mL/hr, administered: 07/31/2016 5:18:00 PM The following Medications were prescribed to the patient: None.
--- NOTE | 2016-08-06 08:27 | ED MAR SUMMARY ---
..... Medication Administration Record [facility] [address] [place] [address] Patient: GINGER JOHNSON Visit ID: [id number] 61y, F Weight: 47.6 kg Height/Length: 60 in BMI: 20.5 ALLERGIES: No Known Drug Allergy Given 15:08 07/31/2016 Scotty Estrella, Medication Administered: DUONEB [NEB TX] (IPRATROPIUM-ALBUTEROL), Dose: 1 unit dose Nebulizer Neb TX. Medication Ordered: DuoNeb Neb Tx 1 unit dose (NOW). Given 15:37 07/31/2016 Annalisa Newman R.N. Medication Administered: SOLU-MEDROL [IVP] (METHYLPREDNISOLONE SODIUM SUCC), Dose: 125 mg IVP over 2 minute(s), Site: #1 right forearm. Medication Ordered: Solu-MEDROL IV 125 mg (NOW). Given 16:00 07/31/2016 Annalisa Newman R.N. Medication Administered: albuterol neb *, Dose: 7.5 mg * Neb TX. Medication Ordered: Albuterol Neb Tx 7.5 mg (one now over an hour). Given 16:08 07/31/2016 Guido Marquez R.N. Medication Administered: ZOFRAN [IVP] (ONDANSETRON HCL), Dose: 4 mg IVP over 2 minute(s), Site: #1 right forearm. Medication Ordered: Zofran IV 4 mg (NOW). Start 17:18 07/31/2016 Annalisa Newman R.N., Stop 19:02 07/31/2016 Annalisa Newman R.N. Medication Administered: IV NS (SALINE), Dose: IV Fluids over 1 hour(s), Rate: 250 mL/hr, Dispensed: 250 mL bag, Site: #1 right forearm. Medication Ordered: IV NS : initial bolus 250 mL (1000 mL/hr), then none - for X1 (NOW).
--- NOTE | 2016-08-06 18:02 | Progress Note ---
Subjective General Pt seen and examined. Patient was seen to have improved air exchange with high dose steroids and maintaining the bipap. Patient has been hemodynamically stable , with improving blood gases. Constitutional Denies: Fever, Chills, Sweats, Weakness, Malaise, Other. Respiratory Wheezing. Gastrointestinal Diarrhea. Genitourinary Hematuria. Physical Exam Vital Signs / I&Os Vital Signs Date Time Temp Pulse Resp B/P Pulse O2 O2 Flow FiO2 Ox Delivery Rate 08/11 1202 85 19 121/62 94 Nasal 1.0 Cannula 08/11 1108 1.0 08/11 1027 97.9 87 21 125/69 95 Nasal 2.0 Cannula 08/11 0900 94 20 106/59 95 Nasal 2.0 Cannula 08/11 0839 73 22 90/49 96 Bipap 30 08/11 0800 80 109/59 08/11 0743 72 17 89/56 96 08/11 0710 97.9 78 21 91/61 96 Bipap 30 08/11 0644 104/61 08/11 0637 110/62 08/11 0630 86/45 08/11 0627 77/44 08/11 0613 88/52 08/11 0608 98.1 86 23 97/56 94 Bipap 30 08/11 0540 102/52 08/11 0529 96/48 08/11 0517 98.1 99 22 95/57 98 Nasal 1.5 Cannula 08/11 0502 1.5 08/11 0431 92/53 08/11 0424 98.1 78 23 85/57 92 Nasal 1.0 Cannula 08/11 0314 98.2 60 18 115/82 93 Nasal 1.0 Cannula 08/11 0303 1.0 08/11 0210 84 15 104/53 91 Nasal 1.0 Cannula 08/11 0110 113/71 08/11 0100 1.0 08/11 0008 76 18 120/69 90 Nasal 1.0 Cannula 08/10 2326 1.0 08/10 2310 98.1 77 19 99/66 90 Nasal 1.0 Cannula 08/10 2231 86 08/109 96/62 08/105 81/52 08/10 2202 80 25 86/43 96 Nasal 1.0 Cannula 08/108 86 22 106/65 94 Nasal 1.0 Cannula 08/10 2055 Nasal 1.0 Cannula 08/10 2028 98 08/10 2007 82 22 113/50 95 Nasal 1.0 Cannula 08/10 2001 1.0 08/10 1910 82 22 92/64 94 Nasal 1.0 Cannula 08/10 1805 98.2 91 22 96/52 93 Nasal 1.0 Cannula 08/10 1709 75 24 95/52 97 Nasal 1.0 Cannula 08/10 1605 80 22 104/52 94 Nasal 1.0 Cannula 08/10 1525 1.0 08/10 1508 97.7 93 23 98/63 96 Bipap 35 08/10 1320 20 100 Bipap 35 08/10 1318 97.0 08/10 1300 76 18 100/54 93 Nasal 1.0 Cannula I&O 08/10 0800 08/10 1600 08/11 0000 Intake Total 1416 1620 600 Output Total 520 975 510 Balance 896 645 90 General Appearance Cooperative, No acute distress, very sedated HEENT Atraumatic, PERRLA, Moist mucous membranes Lungs Normal air movement, on bipap, diffuse ronchi, improved exam Cardiovascular Regular rate and rhythm, No murmurs, gallops, rubs Abdomen Soft, - no abdominal pain, normal bowel sounds Extremities Normal exam, No clubbing, No edema Neurological Sensation intact, No lateralizing signs Psych/Mental Status Confused, - very sedated LAB Results Laboratory Tests 08/10 08/11 08/11 08/11 08/11 1250 0400 0405 0405 0405 Chemistry Plasma Sodium (136 - 145 mmol/L) Cancelled 140 Plasma Potassium (3.5 - 5.1 mmol/L) Cancelled 4.0 Plasma Chloride (98 - 107 mmol/L) Cancelled 103 CO2 (Enzymatic) (21 - 32 mmol/L) Cancelled 30 BUN (7 - 18 mg/dL) Cancelled 24 Creatinine (0.6 - 1.3 mg/dL) Cancelled 0.8 Est GFR ( Amer) (mL/min) Cancelled >60 Est GFR (Non-Af Amer) (mL/min) Cancelled >60 Glucose (70 - 110 mg/dL) Cancelled 160 Plasma Calcium (8.5 - 10.1 mg/dL) Cancelled 8.1 Total Bilirubin (0.0 - 1.0 mg/dL) 1.4 AST (15 - 37 U/L) 30 ALT (12 - 78 U/L) 20 Alkaline Phosphatase (46 - 116 U/L) 46 Ammonia (11 - 32 umol/L) 69 B-Natriuretic Peptide (5 - 100 pg/ml) 494 Total Protein (6.4 - 8.2 g/dL) 5.5 Albumin (3.3 - 5.0 g/dL) 2.2 Coagulation INR (0.8 - 1.2) 6.2 3.5 Hematology WBC (4.5 - 11.5 K/uL) 7.7 RBC (4.00 - 5.20 M/uL) 2.87 Hgb (12.0 - 16.0 gm/dL) 9.0 Hct (36.0 - 46.0 %) 27.5 MCV (80 - 100 fL) 96 MCH (26 - 34 pg) 32 RDW (11.6 - 14.8 %) 16.6 Neut % (Auto) (50 - 75 %) 82 Lymph % (Auto) (25 - 40 %) 1 [place] % (Auto) (3 - 14 %) 1 Eos % (Auto) (0 - 4 %) 0 Baso % (Auto) (0 - 2 %) 0 Band Neutrophils % (0 - 8 %) 16 Metamyelocytes % (0 - 1 %) 0 Myelocytes (0 - 1 %) 0 Other Cell Type 0 Plt Count, EDTA (150 - 400 K/uL) 127 Hypochromic-Microcytic 1+ Anisocytosis (manual) 1+ PUBS MCHC (31 - 37 g/dL) 33 08/11 0900 Coagulation APTT Cancelled Hematology WBC Cancelled RBC Cancelled Hgb Cancelled Hct Cancelled MCV Cancelled MCH Cancelled RDW Cancelled Plt Count, EDTA Cancelled PUBS MCHC Cancelled Assessment and Plan Problem List 1. SIRS (systemic inflammatory response syndrome) Status Acute Onset Date Unknown Plan - pt has been off of vasopressive agents for the past 2 days - no signs of hemodynamic isntability or febrile episodes - diarrhea has decreased in frequency - will continue with flagyl and zosyn 2. Colitis Status Acute Onset Date Unknown Plan -decreased frequency of diarrhea -no complaints of abdominal pain - c/w flagyl 3. Hematuria Plan - patient has waxing episodes of hematuria - patient has a stable hemoglobin - if patient has saeed hematuria with gross blood will call for urology - repeat UA does not show UTI 4. CHF (congestive heart failure) Status Chronic Onset Date Unknown Plan - stable - no evidence of exacerbation
[2016-08-07] VITALS (24 sets, daily range): BP systolic 100–131; BP diastolic 61–95
--- NOTE | 2016-08-07 08:43 | Progress Note ---
Subjective General Note Date: August 07, 2016 Admission Date: July 31, 2016 Hospital Day: 8 PCP: Carmen Nelson MD Status: Inpatient Advanced Directive: FULL CODE Room: 304 Brief History: The patient is a 61-year-old female with a significant past medical history of congestive heart failure, chronic obstructive pulmonary disease, valvular heart disease status post aortic/mitral valve replacement, hypothyroidism, gastroesophageal reflux, atrial fibrillation, chronic pain syndrome, and chronic anticoagulation, who presented to [facility] Emergency Department on the day of admission with complaints of shortness of breath. [facility] ER evaluation was consistent with exacerbation of COPD, anemia-H&H 6.8/20.2, and possible early CHF. Secondary to the above, the patient was admitted by Lew Martini M.D. for further evaluation and treatment. The patient developed increasing shortness of breath on the evening of August 01, 2016. This progressed into respiratory distress requiring transfer to medical intensive care unit and subsequent intubation with mechanical ventilation. For other history present illness, past medical history, family history, social history, review of systems, and admission physical examination please see the patient's history and physical examination and ER visit note in the patient's medical record. Subjective: Patient status improved today. Mental status improved with increased responsiveness and appropriate verbal responses. Follows commands appropriately. Able to swallow without problems. Patient requests: None Medications and Allergies Medications Current Medications Sig/Matilde Start time Last Medication Dose Route Stop Time Status Admin Furosemide 20 MG DAILY 08/06 1600 AC 08/06 IV 1543 Pantoprazole Sodium 40 MG 00 08/05 0600 AC 08/07 IV 0511 Metoprolol Tartrate 5 MG Q3H PRN 08/04 2030 AC 08/07 IV 0428 Methylprednisolone 80 MG Q8HR 08/04 1400 AC 08/07 Sodium Succinate IV 0510 Metronidazole/Sodium 100 ML Q8HR 08/04 1400 AC 08/07 Chloride IV 0510 Morphine Sulfate 2 MG Q2H PRN 08/03 1145 AC 08/07 IV 0505 Morphine Sulfate 4 MG Q2H PRN 08/03 1145 AC 08/06 IV 1843 Levothyroxine Sodium 25 MCG 0600 08/03 0600 AC 08/04 PTUBE 0522 Piperacillin/ 50 ML Q6HR 08/02 1200 AC 08/07 Tazobactam/Dextrose IV 0510 Albuterol/Ipratropium 3 ML RTQ4H 08/02 0000 AC 08/07 IN 0746 Acetaminophen 650 MG Q4H PRN 08/01 2345 AC 08/03 IA 1046 Lorazepam See Dose Q2H PRN 08/01 2345 AC 08/06 Insts (1) IV 2204 Artificial Tears See Dose Q4H PRN 08/01 2300 AC Insts (2) OP Albuterol Sulfate 2.5 MG Q2H PRN 08/01 1030 AC 08/04 IN 1019 Lisinopril 5 MG DAILY 08/01 0900 AC 08/01 PO 0932 Carvedilol 6.25 MG Q8H 08/01 0800 AC 08/03 PO 2355 Levothyroxine Sodium 112 MCG 0600 08/01 0600 AC 08/04 PO 0522 Oxycodone HCl See Dose Q4H PRN 07/31 2345 AC 08/03 Insts (3) PO 0354 Fluticasone/ See Dose RTBID 07/31 2020 AC 08/01 Salmeterol Insts (4) IN 1916 Senna 2 TAB DAILY 07/31 2017 AC 07/31 PO 2247 Atropine Sulfate 0.5 MG Q3MIN PRN 07/31 1999 AC IV Lidocaine HCl See Dose ONCE PRN 07/31 1999 AC Insts (5) IV Nitroglycerin 0.4 MG Q5M PRN 07/31 1999 AC SL Ondansetron HCl 4 MG Q6H PRN 07/31 1999 AC 08/01 IV 2305 Dose Instructions: (1)Lorazepam: 1 - 2 MG (2)Artificial Tears: 1 DROP EACH EYE (3)Oxycodone HCl: 5-10 MG (4)Fluticasone/Salmeterol: 1 CLICK (5)Lidocaine HCl: 1.5 MG/KG Allergies Coded Allergies: Aspirin (08/03/16) Morphine (DOES NOT TOLERATE MS CONTIN; SOB 08/03/16) Physical Exam Vital Signs / I&Os Vital Signs Date Time Temp Pulse Resp B/P Pulse O2 O2 Flow FiO2 Ox Delivery Rate 08/07 0825 91 25 131/74 94 Bipap 08/07 0815 92 08/07 0709 92 21 131/83 97 Bipap 08/07 0600 97.5 86 21 125/90 96 Bipap 08/07 0500 96 20 129/79 97 Bipap 08/07 0400 86 20 128/72 97 02/19 0300 113 26 126/72 98 Bipap 25 08/07 0200 97.9 08/07 0200 97.5 102 17 106/62 97 Bipap 25 08/07 0100 95 24 128/68 95 Bipap 25 08/07 0020 99 23 110/63 98 Bipap 25 08/06 2315 98 21 115/75 98 Bipap 25 08/06 2309 100 08/06 2205 94 15 92/59 96 Bipap 25 08/06 2113 92 25 104/81 95 Bipap 25 08/06 2015 Bipap 25 08/06 2008 95 18 98/71 96 Bipap 25 08/06 1900 98 17 110/73 96 Bipap 25 08/06 1811 97.9 08/06 1807 102 18 134/69 99 Bipap 25 08/06 1700 96 17 116/75 97 Bipap 25 08/06 1610 93 18 91/73 98 Bipap 25 08/06 1536 92 08/06 1500 92 24 110/64 97 NC/FT 5.0 08/06 1412 97.3 08/06 1411 90 26 90/41 95 Bipap 5.0 08/06 1316 109 27 115/69 93 Bipap 25 08/06 1228 100 21 103/55 97 Bipap 25 08/06 1133 101 30 99/72 93 Bipap 25 08/06 1105 97.5 98 27 147/84 93 Bipap 25 08/06 0924 88 23 128/91 94 Bipap 25 08/06 0854 94 I&O 08/07 0000 08/06 1600 08/06 0800 Intake Total 35 893 1186 Output Total 1310 385 315 Balance -1275 508 871 General Appearance Alert, Cooperative, Mild distress Lungs Decreased breath sounds throughout, minimal basilar rales, minimal wheezes bilaterally Cardiovascular Regular rate and rhythm, heart sounds unchanged. Murmur unchanged Abdomen Normal bowel sounds, Soft, No tenderness Extremities No cyanosis, No clubbing Neurological Cranial nerves intact, Strength 5/5 x4 ext's, No lateralizing signs Psych/Mental Status Confused LAB Results Laboratory Tests 08/07 08/07 08/07 08/07 08/07 0830 0500 0415 0415 0415 Blood Gas Sample Site RR Total CO2 (24.0 - 30.0 mmol/L) 28.6 ABG pH (7.35 - 7.45) 7.33 ABG pCO2 at Pt Temp (35 - 45 mmHg) 51.4 ABG pO2 at Pt Temp (60.0 - 80.0 mmHg) 78.7 ABG HCO3 (20.0 - 26.0 mmol/L) 27.1 ABG O2 Sat Calc/Elia (95.1 - 100.0 %) 95.7 ABG Base Excess (-6.0 - -6.0 mmol/L) 1.1 ABG Reduced Hgb (%) 4.2 ABG Carboxyhemoglobin (0.5 - 1.5 %) 2.1 ABG Methemoglobin (0.4 - 1.5 %) 0.5 Enoc Test YES Other Total Hgb (12.0 - 16.0 g/dL) 8.9 A-a O2 Gradient (7.0 - 14.0 mmHg) 36.7 Hgb O2 Saturation (95.0 - 100.0 %) 93.2 Respiration Rate (/MIN) [address] FiO2 (20 - 101 %) 25 Chemistry Plasma Sodium (136 - 145 mmol/L) 153 Plasma Potassium (3.5 - 5.1 mmol/L) 3.6 Plasma Chloride (98 - 107 mmol/L) 117 CO2 (Enzymatic) (21 - 32 mmol/L) 26 BUN (7 - 18 mg/dL) 29 Creatinine (0.6 - 1.3 mg/dL) 1.0 Est GFR ( Amer) (mL/min) >60 Est GFR (Non-Af Amer) (mL/min) 59.91 Glucose (70 - 110 mg/dL) 166 Plasma Calcium (8.5 - 10.1 mg/dL) 8.7 Phosphorus Pending Plasma Magnesium Pending C-Reactive Protein (0.0 - 0.9 mg/dL) 1.5 B-Natriuretic Peptide (5 - 100 pg/ml) 773 Procalcitonin (0 - 0.5 ng/mL) 0.6 Coagulation APTT (24 - 34 SECONDS) Pending > 150 Hematology WBC (4.5 - 11.5 K/uL) Pending 4.6 RBC (4.00 - 5.20 M/uL) Pending 2.90 Hgb (12.0 - 16.0 gm/dL) Pending 9.0 Hct (36.0 - 46.0 %) Pending 27.9 MCV (80 - 100 fL) Pending 96 MCH (26 - 34 pg) Pending 31 RDW (11.6 - 14.8 %) Pending 17.8 Neut % (Auto) (50 - 75 %) 89 Lymph % (Auto) (25 - 40 %) 2 [place] % (Auto) (3 - 14 %) 1 Eos % (Auto) (0 - 4 %) 0 Baso % (Auto) (0 - 2 %) 0 Band Neutrophils % (0 - 8 %) 8 Metamyelocytes % (0 - 1 %) 0 Myelocytes (0 - 1 %) 0 Other Cell Type 0 Plt Count, EDTA (150 - 400 K/uL) Pending 123 Hypochromic-Microcytic 1+ Anisocytosis (manual) 1+ PUBS MCHC (31 - 37 g/dL) Pending 32 ESR Westergren (0 - 30 mm/hr) 32 08/06 08/06 08/06 1950 1950 1710 Blood Gas Sample Site LR Total CO2 (24.0 - 30.0 mmol/L) 26.5 ABG pH (7.35 - 7.45) 7.38 ABG pCO2 at Pt Temp (35 - 45 mmHg) 42.9 ABG pO2 at Pt Temp (60.0 - 80.0 mmHg) 75.8 ABG HCO3 (20.0 - 26.0 mmol/L) 25.2 ABG O2 Sat Calc/Elia (95.1 - 100.0 %) 96.1 ABG Base Excess (-6.0 - -6.0 mmol/L) 0.0 ABG Reduced Hgb (%) 3.8 ABG Carboxyhemoglobin (0.5 - 1.5 %) 2.1 ABG Methemoglobin (0.4 - 1.5 %) 0.7 Enoc Test YES Other Total Hgb (12.0 - 16.0 g/dL) 9.4 A-a O2 Gradient (7.0 - 14.0 mmHg) 49.4 Hgb O2 Saturation (95.0 - 100.0 %) 93.4 Temperature (C) 37 Respiration Rate (/MIN) [address] FiO2 (20 - 101 %) 25 Tidal Volume (cc) 470 PEEP (cmH2O) 8 Pressure Support (cmH2O) 18 Coagulation INR (0.8 - 1.2) 2.1 APTT (24 - 34 SECONDS) 40 Hematology WBC (4.5 - 11.5 K/uL) 3.8 RBC (4.00 - 5.20 M/uL) 2.91 Hgb (12.0 - 16.0 gm/dL) 9.1 Hct (36.0 - 46.0 %) 27.8 MCV (80 - 100 fL) 96 MCH (26 - 34 pg) 31 RDW (11.6 - 14.8 %) 16.5 Neut % (Auto) (50 - 75 %) 93.3 Lymph % (Auto) (25 - 40 %) 2.3 [place] % (Auto) (3 - 14 %) 4.3 Eos % (Auto) (0 - 4 %) 0 Baso % (Auto) (0 - 2 %) 0.1 Plt Count, EDTA (150 - 400 K/uL) 112 PUBS MCHC (31 - 37 g/dL) 33 Assessment and Plan Problem List 1. Hematuria Plan -Patient with findings of hematuria -Heparin discontinued -INR 2.1 -Monitor, consider urological evaluation postdischarge -Noted post placement of Nelson catheter with ongoing anticoagulation 2. Epistaxis Plan -Resolved -Monitor 3. CKD (chronic kidney disease) stage 3, GFR 30-59 ml/min Status Chronic Onset Date Unknown Plan -Stable -BUN and creatinine 29/1.0 -Monitor 4. Adrenal nodule Status Chronic Onset Date Unknown Plan -Patient with adrenal nodule noted on admission -Outpatient follow-up 5. CHF (congestive heart failure) Status Chronic Onset Date Unknown Plan -Stable -Most recent chest x-ray shows cardiomegaly without signs of pulmonary congestion -Continue present therapy -BNP 773 -Continue diuretic therapy, ALEXANDRA inhibitor, Coreg. -Monitor 6. COPD exacerbation Plan -Persistent bronchospasm -Continue corticosteroids, DuoNeb, albuterol. -ABG-733, PCO2 51.4, PO2 78.7 -Status unstable -Monitor -Patient intermittently required BiPAP, currently on nasal cannula O2 7. Chronic anticoagulation Status Chronic Onset Date Unknown Plan -INR 2.1 -DC heparin -Coumadin 5 mg by mouth daily -Monitor 8. Valvular heart disease Status Chronic Onset Date Unknown Plan -Stable -Continue anticoagulation 9. Anemia Status Chronic Onset Date Unknown Plan -Patient with findings of iron deficiency anemia -Ferrous sulfate 325 mg by mouth twice a day -Iron percent saturation 8% -B12 and folate within normal limits Current status: Unstable, fair Anticipated discharge date: Anticipated discharge in 3-4 days Anticipated discharge placement: senior care facility Patient care time: Time spent in chart review, patient interview, physical exam, CPOE, and care documentation: 35 minutes Visit to patient today: 2 Complexity of care: High E&M Codes Rounding: Inpt-High/[id number]
[2016-08-08] VITALS (23 sets, daily range): BP systolic 86–133; BP diastolic 47–83
--- NOTE | 2016-08-08 07:43 | Progress Note ---
Subjective General Note Date: August 08, 2016 Admission Date: July 31, 2016 Hospital Day: 9 PCP: Carmen Nelson MD Status: Inpatient Advanced Directive: FULL CODE Room: 304 Brief History: The patient is a 61-year-old female with a significant past medical history of congestive heart failure, chronic obstructive pulmonary disease, valvular heart disease status post aortic/mitral valve replacement, hypothyroidism, gastroesophageal reflux, atrial fibrillation, chronic pain syndrome, and chronic anticoagulation, who presented to [facility] Emergency Department on the day of admission with complaints of shortness of breath. [facility] ER evaluation was consistent with exacerbation of COPD, anemia-H&H 6.8/20.2, and possible early CHF. Secondary to the above, the patient was admitted by Lew Martini M.D. for further evaluation and treatment. The patient developed increasing shortness of breath on the evening of August 01, 2016. This progressed into respiratory distress requiring transfer to medical intensive care unit and subsequent intubation with mechanical ventilation. For other history present illness, past medical history, family history, social history, review of systems, and admission physical examination please see the patient's history and physical examination and ER visit note in the patient's medical record. Subjective: Patient status improved today. Mental status improved with increased responsiveness and appropriate verbal responses. Follows commands appropriately. Able to swallow without problems. Patient states she wants to go home Patient requests: None Medications and Allergies Medications Current Medications Sig/Matilde Start time Last Medication Dose Route Stop Time Status Admin Dextrose/Water 1,000 ML ASDIRECTED 08/08 0615 AC IV Warfarin Sodium 5 MG DAILY@1400 08/07 1400 AC 08/07 PO 1442 Furosemide 20 MG DAILY 08/06 1600 AC 08/07 IV 0920 Pantoprazole Sodium 40 MG 08/05 0600 AC 08/08 IV 0559 Metoprolol Tartrate 5 MG Q3H PRN 08/04 2030 AC 08/07 IV 0428 Methylprednisolone 80 MG Q8HR 08/04 1400 AC 08/08 Sodium Succinate IV 0559 Morphine Sulfate 2 MG Q2H PRN 08/03 1145 AC 08/07 IV 1824 Morphine Sulfate 4 MG Q2H PRN 08/03 1145 AC 08/06 IV 1843 Levothyroxine Sodium 25 MCG 0600 08/03 0600 AC 08/04 PTUBE 0522 Piperacillin/ 50 ML Q6HR 08/02 1200 AC 08/08 Tazobactam/Dextrose IV 0559 Albuterol/Ipratropium 3 ML RTQ4H 08/02 0000 AC 08/08 IN 0735 Acetaminophen 650 MG Q4H PRN 08/01 2345 AC 08/03 MD 1046 Lorazepam See Dose Q2H PRN 08/01 2345 AC 08/06 Insts (1) IV 2204 Artificial Tears See Dose Q4H PRN 08/01 2300 AC Insts (2) OP Albuterol Sulfate 2.5 MG Q2H PRN 08/01 1030 AC 08/04 IN 1019 Lisinopril 5 MG DAILY 08/01 0900 AC 08/01 PO 0932 Carvedilol 6.25 MG Q8H 08/01 0800 AC 08/08 PO 0048 Levothyroxine Sodium 112 MCG 0600 08/01 0600 AC 08/04 PO 0522 Oxycodone HCl See Dose Q4H PRN 07/31 2345 AC 08/07 Insts (3) PO 1451 Fluticasone/ See Dose RTBID 07/31 2020 AC 08/01 Salmeterol Insts (4) IN 1916 Senna 2 TAB DAILY 07/31 2017 AC 07/31 PO 2247 Atropine Sulfate 0.5 MG Q3MIN PRN 07/31 1999 AC IV Lidocaine HCl See Dose ONCE PRN 07/31 1999 AC Insts (5) IV Nitroglycerin 0.4 MG Q5M PRN 07/31 1999 AC SL Ondansetron HCl 4 MG Q6H PRN 07/31 1999 AC 08/07 IV 1639 Dose Instructions: (1)Lorazepam: 1 - 2 MG (2)Artificial Tears: 1 DROP EACH EYE (3)Oxycodone HCl: 5-10 MG (4)Fluticasone/Salmeterol: 1 CLICK (5)Lidocaine HCl: 1.5 MG/KG Allergies Coded Allergies: Aspirin (08/03/16) Morphine (DOES NOT TOLERATE MS CONTIN; SOB 08/03/16) Physical Exam Vital Signs / I&Os Vital Signs Date Time Temp Pulse Resp B/P Pulse O2 O2 Flow FiO2 Ox Delivery Rate 08/08 0732 1.0 08/08 0713 92 34 114/69 93 1.0 NC/humidified 08/08 0632 97.5 93 27 114/67 98 1.0 NC/humidified 08/08 0550 96.4 08/08 0538 94 23 133/79 95 1.0 NC/humidified 08/08 0427 1.0 08/08 0400 85 22 125/65 97 Nasal 1.0 Cannula 08/08 0315 70 26 104/60 100 08/08 0215 69 22 115/66 96 Nasal 1.0 Cannula 08/08 0133 98.1 08/08 0100 85 23 122/79 97 08/08 0048 97 08/08 0042 98 22 122/83 96 08/08 0023 1.0 08/07 2300 103 23 114/70 97 Nasal 1.0 Cannula 08/07 2200 117/89 08/07 2155 101 27 116/85 95 Nasal 1.0 Cannula 08/07 2127 88 23 100/61 95 Nasal 1.0 Cannula 08/07 2027 1.0 08/07 2014 99 26 124/70 99 Nasal 1.0 Cannula 08/07 1954 1.0 08/07 1908 124/76 02 1907 95 22 95 Nasal 1.0 Cannula 08/07 1801 98.1 08/07 1759 106 24 114/65 98 Nasal 1.0 Cannula 08/07 1753 96 08/07 1725 1.0 08/07 1712 96 16 110/95 100 Nasal 1.0 Cannula 08/07 1603 107 26 104/73 97 Nasal 1.0 Cannula 08/07 1519 98.4 123 30 96 Nasal 1.0 Cannula 08/07 1410 97.9 97 29 115/77 95 Nasal 1.0 Cannula 08/07 1327 99 27 121/76 93 Nasal 1.0 Cannula 08/07 1235 1.0 08/07 1215 98 25 128/74 98 Nasal 2.0 Cannula 08/07 1110 93 24 129/68 95 Mask 5.0 08/07 1034 97.2 102 25 122/69 96 Mask 5.0 08/07 0946 101 18 127/76 94 Mask 5.0 08/07 0908 Mask 3.0 08/07 0825 91 25 131/74 94 Bipap 25 08/07 0815 92 I&O 08/08 0000 08/07 1600 08/07 0800 Intake Total 274 632 0915 Output Total 352 670 412 Balance 213 -355 1014 General Appearance Alert, Cooperative, Mild distress Lungs diffuse rhonchi, minimal expiratory wheezes, minimal basilar crackles Cardiovascular Normal S1 and S2, irregular rhythm, rate controlled Abdomen Normal bowel sounds, Soft, No tenderness Extremities No cyanosis, No clubbing Neurological Cranial nerves intact, No lateralizing signs, mild lethargy Psych/Mental Status Confused LAB Results Laboratory Tests 08/08 08/08 08/07 0610 0410 0830 Chemistry Plasma Sodium (136 - 145 mmol/L) Cancelled 156 Plasma Potassium (3.5 - 5.1 mmol/L) Cancelled 4.1 Plasma Chloride (98 - 107 mmol/L) Cancelled 119 CO2 (Enzymatic) (21 - 32 mmol/L) Cancelled 31 BUN (7 - 18 mg/dL) Cancelled 37 Creatinine (0.6 - 1.3 mg/dL) Cancelled 1.1 Est GFR ( Amer) (mL/min) Cancelled >60 Est GFR (Non-Af Amer) (mL/min) Cancelled 53.67 Glucose (70 - 110 mg/dL) Cancelled 161 Plasma Calcium (8.5 - 10.1 mg/dL) Cancelled 8.8 Phosphorus (2.5 - 4.9 mg/dL) 3.6 3.4 Plasma Magnesium (1.8 - 2.4 mg/dL) 2.6 2.4 Total Bilirubin Cancelled AST Cancelled ALT Cancelled Alkaline Phosphatase Cancelled Total Protein Cancelled Albumin Cancelled Coagulation INR (0.8 - 1.2) 2.8 APTT (24 - 34 SECONDS) 41 58 Hematology WBC (4.5 - 11.5 K/uL) 2.5 3.9 RBC (4.00 - 5.20 M/uL) 2.77 2.86 Hgb (12.0 - 16.0 gm/dL) 8.7 9.0 Hct (36.0 - 46.0 %) 27.0 27.6 MCV (80 - 100 fL) 97 96 MCH (26 - 34 pg) 31 32 RDW (11.6 - 14.8 %) 17.7 17.3 Neut % (Auto) (50 - 75 %) 97 92.9 Lymph % (Auto) (25 - 40 %) 1 3.2 [place] % (Auto) (3 - 14 %) 2 3.8 Eos % (Auto) (0 - 4 %) 0 0 Baso % (Auto) (0 - 2 %) 0 0.1 Band Neutrophils % (0 - 8 %) 0 Metamyelocytes % (0 - 1 %) 0 Myelocytes (0 - 1 %) 0 Other Cell Type BASOPHILIC STIPPLING Plt Count, EDTA (150 - 400 K/uL) 115 117 Polychromasia 1+ Anisocytosis (manual) 1+ Microcytosis (manual) 1+ Ovalocytes 1+ PUBS MCHC (31 - 37 g/dL) 32 33 Assessment and Plan Problem List 1. COPD exacerbation Plan -persistent mild bronchospasm. -O2 sats will maintain on nasal cannula O2 -We'll decrease Solu-Medrol to 40 mg IV twice a day -Tenuous state at this time 2. Chronic anticoagulation Status Chronic Onset Date Unknown Plan -INR therapeutic at 2.7 -Continue Coumadin 5 mg by mouth daily -Switched to Coumadin 2.5 mg by mouth daily in a.m. -Daily INR 3. Valvular heart disease Status Chronic Onset Date Unknown Plan -stable --No further evaluation -Continue present anticoagulation 4. Anemia Status Chronic Onset Date Unknown Plan -persistent anemia -Mild, stable -Monitor 5. CHF (congestive heart failure) Status Chronic Onset Date Unknown Plan -patient with findings of CHF -Continue Lasix, lisinopril, Coreg -Consider addition of Aldactone -Low salt diet -Patient with significant hypernatremia, will place on D5W at 150 cc per hour 6. Adrenal nodule Status Chronic Onset Date Unknown Plan -outpatient follow-up 7. Hematuria Plan -patient with findings of hematuria status post placement of Nelson catheter -Possible urology follow-up post discharge 8. Hypernatremia Status Acute Onset Date Unknown Plan -Patient with findings of hyponatremia, sodium 156 -IV fluids D5W at 150 cc per hour -Monitor Current status: fair, unstable Anticipated discharge date: 3-4 days Anticipated discharge placement: [facility]dc facility Patient care time: Time spent in chart review, patient interview, physical exam, CPOE, and care documentation: 35 minutes Visit to patient today: 1 Complexity of care: moderate-high E&M Codes Rounding: Inpt-High/[id number]
--- NOTE | 2016-08-08 21:42 | DIAGNOSTIC IMAGING REPORT ---
PROCEDURE: XR CHEST 1 VIEW INDICATION: INCREASE IN WOB TECHNIQUE: Single view chest. 2056 hours COMPARISON: 08/05 and 08/04. FINDINGS: Lower lung volumes. Slight apparent retraction of right-sided PICC line which may be secondary to lower lung volumes. Marked cardiomegaly, stable. Slight increased prominence of central vessels and interstitial markings. Subtle increase in atelectatic change in the right infrahilar and lingular regions. No new significant pleural effusion or pneumothorax. Post median sternotomy changes. IMPRESSION: 1. Slight increase in central vascular and interstitial prominence may indicate increased fluid status or slight worsening of CHF. 2. Subtle increase in bilateral atelectatic changes, likely secondary to lower lung volumes. 3. Slight retraction of right-sided PICC line whose tip remains central. 4. Findings called to the floor.
--- NOTE | 2016-08-08 22:04 | Progress Note ---
Subjective General Patient with decrease in LOC had been talking and ate, drank a little this pm then seemed to do a little worse. Increase in WOB. Physical Exam Vital Signs / I&Os Vital Signs Date Time Temp Pulse Resp B/P Pulse O2 O2 Flow FiO2 Ox Delivery Rate 08/08 2113 97.0 82 15 93/53 99 Bipap 30 08/08 2030 1.0 08/08 2023 Nasal 1.0 Cannula 08/08 1908 97.3 76 15 117/52 97 Nasal 2.0 Cannula 08/08 1810 77 20 93/61 97 Nasal 2.0 Cannula 08/08 1710 77 23 110/66 99 Mask 2.0 08/08 1652 2.0 08/08 1610 86 21 108/60 99 Mask 3.0 08/08 1520 87 08/08 1512 92 23 108/68 96 Mask 3.0 08/08 1415 97.3 08/08 1407 87 26 120/70 99 Mask 3.0 08/08 1351 93 23 101/72 100 Nasal 3.0 Cannula 08/08 1228 98 22 114/72 92 Nasal 1.0 Cannula 08/08 1148 97.3 08/08 1147 94 22 122/64 95 Nasal 1.0 Cannula 08/08 1127 1.0 08/08 1030 93 25 112/59 90 Nasal 1.5 Cannula 08/08 0849 94 23 102/68 95 Nasal 1.5 Cannula 08/08 0826 Nasal 1.5 Cannula 08/08 0822 97 / 0732 1.0 08/08 0713 92 34 114/69 93 1.0 NC/humidified 08/08 0632 97.5 93 27 114/67 98 1.0 NC/humidified 08/08 0550 96.4 08/08 0538 94 23 133/79 95 1.0 NC/humidified 08/08 0427 1.0 / 0400 85 22 125/65 97 Nasal 1.0 Cannula 08/08 0315 70 26 104/60 100 / 0215 69 22 115/66 96 Nasal 1.0 Cannula 08/08 0133 98.1 08/08 0100 85 23 122/79 97 02/ 0048 97 / 0042 98 22 122/83 96 / 0023 1.0 08/07 2300 103 23 114/70 97 Nasal 1.0 Cannula 08/07 2200 117/89 I&O 08/08 0000 08/07 1600 08/07 0800 Intake Total 898 342 2361 Output Total 352 670 412 Balance 213 -355 1014 General Appearance sleepy female opens eyes and smiles Lungs coarse BS with diffuse wheezes. Cardiovascular Regular rate and rhythm LAB Results Laboratory Tests 08/08 2050 0900 0610 Chemistry Plasma Sodium (136 - 145 mmol/L) 148 Cancelled Plasma Potassium (3.5 - 5.1 mmol/L) 3.7 Cancelled Plasma Chloride (98 - 107 mmol/L) 111 Cancelled CO2 (Enzymatic) (21 - 32 mmol/L) 28 Cancelled BUN (7 - 18 mg/dL) 34 Cancelled Creatinine (0.6 - 1.3 mg/dL) 1.3 Cancelled Est GFR ( Amer) (mL/min) 53.64 Cancelled Est GFR (Non-Af Amer) (mL/min) 44.26 Cancelled Glucose (70 - 110 mg/dL) 241 Cancelled Plasma Calcium (8.5 - 10.1 mg/dL) 8.4 Cancelled Total Bilirubin Cancelled AST Cancelled ALT Cancelled Alkaline Phosphatase Cancelled B-Natriuretic Peptide (5 - 100 pg/ml) 905 Total Protein Cancelled Albumin Cancelled Coagulation APTT Cancelled Hematology WBC Cancelled RBC Cancelled Hgb Cancelled Hct Cancelled MCV Cancelled MCH Cancelled RDW Cancelled Plt Count, EDTA Cancelled PUBS MCHC Cancelled 08/08 08/08 0410 [facility] Blood Gas Sample Site RR Total CO2 (24.0 - 30.0 mmol/L) 32.2 ABG pH (7.35 - 7.45) 7.18 ABG pCO2 at Pt Temp (35 - 45 mmHg) 80.1 ABG pO2 at Pt Temp (60.0 - 80.0 mmHg) 69.3 ABG HCO3 (20.0 - 26.0 mmol/L) 29.7 ABG O2 Sat Calc/Elia (95.1 - 100.0 %) 91.0 ABG Base Excess (-6.0 - -6.0 mmol/L) 1.4 ABG Reduced Hgb (%) 8.8 ABG Carboxyhemoglobin (0.5 - 1.5 %) 2.2 ABG Methemoglobin (0.4 - 1.5 %) 0.5 Enoc Test NO Other Total Hgb (12.0 - 16.0 g/dL) 8.7 A-a O2 Gradient (7.0 - 14.0 mmHg) 16.1 Hgb O2 Saturation (95.0 - 100.0 %) 88.5 O2 Liters/Min (0 - 20 L/MIN) 1 Vent Mode NC FiO2 (20 - 101 %) 25 Blood Gas Comments 1 LNC Chemistry Plasma Sodium (136 - 145 mmol/L) 156 Plasma Potassium (3.5 - 5.1 mmol/L) 4.1 Plasma Chloride (98 - 107 mmol/L) 119 CO2 (Enzymatic) (21 - 32 mmol/L) 31 BUN (7 - 18 mg/dL) 37 Creatinine (0.6 - 1.3 mg/dL) 1.1 Est GFR ( Amer) (mL/min) >60 Est GFR (Non-Af Amer) (mL/min) 53.67 Glucose (70 - 110 mg/dL) 161 Plasma Calcium (8.5 - 10.1 mg/dL) 8.8 Phosphorus (2.5 - 4.9 mg/dL) 3.6 Plasma Magnesium (1.8 - 2.4 mg/dL) 2.6 Coagulation INR (0.8 - 1.2) 2.8 APTT (24 - 34 SECONDS) 41 Hematology WBC (4.5 - 11.5 K/uL) 2.5 RBC (4.00 - 5.20 M/uL) 2.77 Hgb (12.0 - 16.0 gm/dL) 8.7 Hct (36.0 - 46.0 %) 27.0 MCV (80 - 100 fL) 97 MCH (26 - 34 pg) 31 RDW (11.6 - 14.8 %) 17.7 Neut % (Auto) (50 - 75 %) 97 Lymph % (Auto) (25 - 40 %) 1 [place] % (Auto) (3 - 14 %) 2 Eos % (Auto) (0 - 4 %) 0 Baso % (Auto) (0 - 2 %) 0 Band Neutrophils % (0 - 8 %) 0 Metamyelocytes % (0 - 1 %) 0 Myelocytes (0 - 1 %) 0 Other Cell Type BASOPHILIC STIPPLING Plt Count, EDTA (150 - 400 K/uL) 115 Polychromasia 1+ Anisocytosis (manual) 1+ Microcytosis (manual) 1+ Ovalocytes 1+ PUBS MCHC (31 - 37 g/dL) 32 Assessment and Plan Problem List 1. COPD (chronic obstructive pulmonary disease) Plan Worse breathing this pm. Will restart on bipap ABG done ph 7.1; pCO2 80. Will re check on abg in around 1 hr. 2. CHF (congestive heart failure) Status Chronic Onset Date Unknown Plan Give 10mg Lasix IV 3. SIRS (systemic inflammatory response syndrome) Status Acute Onset Date Unknown Plan Continue with breathing treatments
[2016-08-09] VITALS (26 sets, daily range): BP systolic 68–105; BP diastolic 37–89
--- NOTE | 2016-08-09 18:54 | Progress Note ---
Subjective General Note Date: August 09, 2016 Admission Date: July 31, 2016 Hospital Day: 10 PCP: Carmen Nelson MD Status: Inpatient Advanced Directive: FULL CODE Room: 304 Brief History: The patient is a 61-year-old female with a significant past medical history of congestive heart failure, chronic obstructive pulmonary disease, valvular heart disease status post aortic/mitral valve replacement, hypothyroidism, gastroesophageal reflux, atrial fibrillation, chronic pain syndrome, and chronic anticoagulation, who presented to [facility] Emergency Department on the day of admission with complaints of shortness of breath. [facility] ER evaluation was consistent with exacerbation of COPD, anemia-H&H 6.8/20.2, and possible early CHF. Secondary to the above, the patient was admitted by Lew Martini M.D. for further evaluation and treatment. The patient developed increasing shortness of breath on the evening of August 01, 2016. This progressed into respiratory distress requiring transfer to medical intensive care unit and subsequent intubation with mechanical ventilation. For other history present illness, past medical history, family history, social history, review of systems, and admission physical examination please see the patient's history and physical examination and ER visit note in the patient's medical record. Subjective: Patient status improved today. Mental status improved with increased responsiveness and appropriate verbal responses. Follows commands appropriately. Able to swallow without problems. Feeding self this am. Patient states she wants to go home Patient requests: None Medications and Allergies Medications Current Medications Sig/Matilde Start time Last Medication Dose Route Stop Time Status Admin Spironolactone 12.5 MG BID 08/09 2100 AC PO Dopamine HCl/Dextrose 250 ML ASDIRECTED 08/09 1815 AC 08/09 IV 1836 Furosemide 20 MG 1730 08/09 1730 AC 08/09 IV 08/09 1900 1737 Clarify Med Order See Dose ASDIRECTED 08/09 1400 AC Insts (1) PO Methylprednisolone 40 MG BID 08/09 0900 AC 08/09 Sodium Succinate IV 0817 Furosemide 10 MG ONCE 08/08 2300 AC 08/08 IV 2226 Dextrose/Water 1,000 ML ASDIRECTED 08/08 0615 AC 08/09 IV 0358 Furosemide 20 MG DAILY 08/06 1600 AC 08/09 IV 0817 Pantoprazole Sodium 40 MG 0600 08/05 0600 AC 08/09 IV 0525 Metoprolol Tartrate 5 MG Q3H PRN 08/04 2030 AC 08/07 IV 0428 Morphine Sulfate 2 MG Q2H PRN 08/03 1145 AC 08/09 IV 0010 Morphine Sulfate 4 MG Q2H PRN 08/03 1145 AC 08/06 IV 1843 Levothyroxine Sodium 25 MCG 0600 08/03 0600 AC 08/09 PTUBE 0902 Piperacillin/ 50 ML Q6HR 08/02 1200 AC 08/09 Tazobactam/Dextrose IV 1737 Albuterol/Ipratropium 3 ML RTQ4H 08/02 0000 AC 08/09 IN 1528 Acetaminophen 650 MG Q4H PRN 08/01 2345 AC 08/03 NH 1046 Lorazepam See Dose Q2H PRN 08/01 2345 AC 08/06 Insts (2) IV 2204 Artificial Tears See Dose Q4H PRN 08/01 2300 AC Insts (3) OP Albuterol Sulfate 2.5 MG Q2H PRN 08/01 1030 AC 08/08 IN 2116 Lisinopril 5 MG DAILY 08/01 09 AC 08/09 PO 0817 Carvedilol 6.25 MG Q8H 08/01 0800 AC 08/09 PO 0817 Levothyroxine Sodium 112 MCG 0600 08/01 0600 AC 08/09 PO 0902 Oxycodone HCl See Dose Q4H PRN 07/31 2345 AC 08/09 Insts (4) PO 1348 Fluticasone/ See Dose RTBID 07/31 2020 AC 08/01 Salmeterol Insts (5) IN 1916 Senna 2 TAB DAILY 07/31 2017 AC 08/09 PO 0817 Atropine Sulfate 0.5 MG Q3MIN PRN 07/31 1999 AC IV Lidocaine HCl See Dose ONCE PRN 07/31 1999 AC Insts (6) IV Nitroglycerin 0.4 MG Q5M PRN 07/31 1999 AC SL Ondansetron HCl 4 MG Q6H PRN 07/31 1999 AC 08/07 IV 1639 Dose Instructions: (1)Clarify Med Order: WAFARIN PER PHARMACY (2)Lorazepam: 1 - 2 MG (3)Artificial Tears: 1 DROP EACH EYE (4)Oxycodone HCl: 5-10 MG (5)Fluticasone/Salmeterol: 1 CLICK (6)Lidocaine HCl: 1.5 MG/KG Allergies Coded Allergies: Aspirin (08/03/16) Morphine (DOES NOT TOLERATE MS CONTIN; SOB 08/03/16) Physical Exam Vital Signs / I&Os Vital Signs Date Time Temp Pulse Resp B/P Pulse O2 O2 Flow FiO2 Ox Delivery Rate 08/09 1810 75 18 68/37 90 Nasal 1.0 Cannula 08/09 1712 74 17 86/50 92 Nasal 1.0 Cannula 08/09 1609 68 16 93/40 91 Bipap 08/09 1523 70 20 102/89 94 Nasal 1.0 Cannula 08/09 1502 70 08/09 1419 97.9 67 20 82/40 94 Nasal 1.0 Cannula 08/09 1251 68 16 84/57 91 Bipap 24 08/09 1246 65 18 75/47 87 Bipap 24 08/09 1200 70 17 84/49 97 Bipap 08/09 1130 97.0 71 20 94 Bipap 24 08/09 1100 71 18 87/49 93 Nasal 1.0 Cannula 08/09 1000 71 18 83/43 92 Nasal 1.0 Cannula 08/09 0917 Nasal 1.0 Cannula 08/09 0900 75 17 81/40 89 Nasal 1.0 Cannula 08/09 0817 81 08/09 0800 85 20 96/58 92 Nasal 1.0 Cannula 08/09 0737 96.6 08/09 0730 1.0 08/09 0700 74 18 89/47 94 Nasal 1.0 Cannula 08/09 0607 75 19 105/52 95 Bipap 30 08/09 0509 72 18 82/54 96 08/09 0413 63 17 92/64 96 Bipap 30 08/09 0313 96.4 78 18 88/53 95 Bipap 30 08/09 0209 69 18 99/61 94 Bipap 30 08/09 0116 74 19 85/51 93 Bipap 30 08/09 0049 73 08/09 0016 92 24 97/59 92 08/08 2330 98/47 02 2327 78 08/08 2310 71 19 86/51 95 Bipap 30 08/08 2204 97.0 72 19 103/50 94 Bipap 30 08/08 2114 97.0 82 15 93/53 99 Bipap 30 08/08 2031 1.0 08/08 2023 Nasal 1.0 Cannula 08/08 1950 69 08/08 1908 97.3 76 15 117/52 97 Nasal 2.0 Cannula I&O 08/09 0000 08/08 1600 08/08 0800 Intake Total 2115 1557 Output Total 340 890 321 Balance 1775 667 -321 General Appearance Alert, Oriented X3, Cooperative, Mild distress Lungs Diffuse rhonchi with mild bilat exp wheezes, basilar rales Cardiovascular Regular rate and rhythm, Normal S1 and S2, valve click, murmur unchanged Abdomen Normal bowel sounds, Soft, No tenderness Extremities No cyanosis, No clubbing, No edema Neurological Cranial nerves intact, No lateralizing signs Psych/Mental Status Mental status normal, Mood normal LAB Results Laboratory Tests 08/09 08/09 08/09 08/09 0915 0900 0410 0410 Chemistry Plasma Sodium (136 - 145 mmol/L) 148 Plasma Potassium (3.5 - 5.1 mmol/L) 3.8 Plasma Chloride (98 - 107 mmol/L) 111 CO2 (Enzymatic) (21 - 32 mmol/L) 30 BUN (7 - 18 mg/dL) 32 Creatinine (0.6 - 1.3 mg/dL) 1.1 Est GFR ( Amer) (mL/min) >60 Est GFR (Non-Af Amer) (mL/min) 53.67 Glucose (70 - 110 mg/dL) 183 Plasma Calcium (8.5 - 10.1 mg/dL) 8.3 B-Natriuretic Peptide (5 - 100 pg/ml) 920 Coagulation INR (0.8 - 1.2) 6.2 APTT (24 - 34 SECONDS) 45 Cancelled Hematology WBC Cancelled RBC Cancelled Hgb Cancelled Hct Cancelled MCV Cancelled MCH Cancelled RDW Cancelled Plt Count, EDTA Cancelled PUBS MCHC Cancelled 08/09 Blood Gas Sample Site RR Total CO2 (24.0 - 30.0 mmol/L) 33.4 ABG pH (7.35 - 7.45) 7.28 ABG pCO2 at Pt Temp (35 - 45 mmHg) 67.5 ABG pO2 at Pt Temp (60.0 - 80.0 mmHg) 58.3 ABG HCO3 (20.0 - 26.0 mmol/L) 31.3 ABG O2 Sat Calc/Elia (95.1 - 100.0 %) 89.1 ABG Base Excess (-6.0 - -6.0 mmol/L) 4.3 ABG Reduced Hgb (%) 10.6 ABG Carboxyhemoglobin (0.5 - 1.5 %) 2.0 ABG Methemoglobin (0.4 - 1.5 %) 0.7 Enoc Test NO Other Total Hgb (12.0 - 16.0 g/dL) 8.6 A-a O2 Gradient (7.0 - 14.0 mmHg) 76.9 Hgb O2 Saturation (95.0 - 100.0 %) 86.7 Respiration Rate (/MIN) [address] FiO2 (20 - 101 %) 30 PEEP (cmH2O) 8 Pressure Support (cmH2O) 10 Blood Gas Comments [id number]/[id number]@30% Chemistry Plasma Sodium (136 - 145 mmol/L) 148 Plasma Potassium (3.5 - 5.1 mmol/L) 3.7 Plasma Chloride (98 - 107 mmol/L) 111 CO2 (Enzymatic) (21 - 32 mmol/L) 28 BUN (7 - 18 mg/dL) 34 Creatinine (0.6 - 1.3 mg/dL) 1.3 Est GFR ( Amer) (mL/min) 53.64 Est GFR (Non-Af Amer) (mL/min) 44.26 Glucose (70 - 110 mg/dL) 241 Plasma Calcium (8.5 - 10.1 mg/dL) 8.4 B-Natriuretic Peptide (5 - 100 pg/ml) 905 Assessment and Plan Problem List 1. COPD exacerbation Plan -patient with ongoing needs of intermittent BiPAP -Continue DuoNeb, albuterol, corticosteroids -BiPAP as necessary -consider placement in respiratory rehabilitation-[place] -Monitor 2. Chronic anticoagulation Status Chronic Onset Date Unknown Plan -INR elevated at 6.2 -Hold Coumadin -recheck INR this p.m. -No findings of significant bleeding aat this time -Hold vitamin K/fresh frozen unless signs of bleeding -Monitor 3. Valvular heart disease Status Chronic Onset Date Unknown Plan -stable -No further evaluation 4. Anemia Status Chronic Onset Date Unknown Plan -patient with persistent anemia -Heme positive stools in setting of colitis -C. difficile negative -Findings not suggestive of ischemic colitis -Monitor 5. CHF (congestive heart failure) Status Chronic Onset Date Unknown Plan -findings suggestive of CHF with mild elevation of BNP -Lisinopril, Coreg, Lasix, will add Aldactone -Patient with findings of hypotension this p.m. -Dopamine as needed for pressure support -Observe closely 6. Hematuria Plan -mild -No suggestion of infectious process -Monitor closely in setting of elevated INR 7. Hypernatremia Status Acute Onset Date Unknown Plan -improved with D5W infusion -Monitor 8. Colitis Status Acute Onset Date Unknown Plan -patient with findings of colitis on CT scan -Denies significant abdominal pain -The patient will require colonoscopy with improved status -monitor for signs of GI bleeding -C. difficile negative 9. Cirrhosis Status Chronic Onset Date Unknown Plan -CT scan with findings suggestive of cirrhosis -No previous history of cirrhosis -check ammonia level, Chem-12 in a.m. -Monitor 10. Adrenal nodule Status Chronic Onset Date Unknown Plan -outpatient follow-up with improved status Current status: Fair, unstable Anticipated discharge date: Anticipated discharge 2-3 days Anticipated discharge placement: [facility] facility Patient care time: Time spent in chart review, patient interview, physical exam, CPOE, and care documentation: 35 minutes Visit to patient today: 2 Complexity of care: High E&M Codes Rounding: Inpt-High/[id number]
[2016-08-10] VITALS (26 sets, daily range): BP systolic 81–119; BP diastolic 43–66
--- NOTE | 2016-08-10 07:43 | Progress Note ---
Subjective General Note Date: August 10, 2016 Admission Date: July 31, 2016 Hospital Day: 11 PCP: Carmen Nelson MD Status: Inpatient Advanced Directive: FULL CODE Room: 304 Brief History: The patient is a 61-year-old female with a significant past medical history of congestive heart failure, chronic obstructive pulmonary disease, valvular heart disease status post aortic/mitral valve replacement, hypothyroidism, gastroesophageal reflux, atrial fibrillation, chronic pain syndrome, and chronic anticoagulation, who presented to [facility] Emergency Department on the day of admission with complaints of shortness of breath. [facility] ER evaluation was consistent with exacerbation of COPD, anemia-H&H 6.8/20.2, and possible early CHF. Secondary to the above, the patient was admitted by Lew Martini M.D. for further evaluation and treatment. The patient developed increasing shortness of breath on the evening of August 01, 2016. This progressed into respiratory distress requiring transfer to medical intensive care unit and subsequent intubation with mechanical ventilation. The patient was subsequently weaned from mechanical ventilation but has required ongoing BiPAP intermittently For other history present illness, past medical history, family history, social history, review of systems, and admission physical examination please see the patient's history and physical examination and ER visit note in the patient's medical record. Subjective: The patient appears somewhat improved today. Remains short of breath. Off BiPAP. No specific complaints. Denies abdominal pain. Patient requests: None other than discharge home Medications and Allergies Medications Current Medications Sig/Matilde Start time Last Medication Dose Route Stop Time Status Admin Lactobacillus 1 TAB TID 08/09 2200 AC 08/10 PO 0618 Spironolactone 12.5 MG BID 08/09 2100 AC 08/09 PO 2042 Dopamine HCl/Dextrose 250 ML ASDIRECTED 08/09 1815 AC 08/09 IV 1836 Clarify Med Order See Dose ASDIRECTED 08/09 1400 AC Insts (1) PO Methylprednisolone 40 MG BID 08/09 0900 AC 08/09 Sodium Succinate IV 2042 Furosemide 10 MG ONCE 08/08 2300 AC 08/08 IV 2226 Dextrose/Water 1,000 ML ASDIRECTED 08/08 0615 AC 08/09 IV 0358 Furosemide 20 MG DAILY 08/06 1600 AC 08/09 IV 0817 Pantoprazole Sodium 40 MG 0600 08/05 0600 AC 08/10 IV 0613 Metoprolol Tartrate 5 MG Q3H PRN 08/04 2030 AC 08/07 IV 0428 Morphine Sulfate 2 MG Q2H PRN 08/03 1145 AC 08/09 IV 0010 Morphine Sulfate 4 MG Q2H PRN 08/03 1145 AC 08/06 IV 1843 Levothyroxine Sodium 25 MCG 0600 08/03 0600 AC 08/10 PTUBE 0618 Piperacillin/ 50 ML Q6HR 08/02 1200 AC 08/10 Tazobactam/Dextrose IV 0613 Albuterol/Ipratropium 3 ML RTQ4H 08/02 0000 AC 08/10 IN 0737 Acetaminophen 650 MG Q4H PRN 08/01 2345 AC 08/03 NM 1046 Lorazepam See Dose Q2H PRN 08/01 2345 AC 08/06 Insts (2) IV 2204 Artificial Tears See Dose Q4H PRN 08/01 2300 AC Insts (3) OP Albuterol Sulfate 2.5 MG Q2H PRN 08/01 1030 AC 08/08 IN 2116 Lisinopril 5 MG DAILY 08/01 0900 AC 08/09 PO 0817 Carvedilol 6.25 MG Q8H 08/01 0800 AC 08/09 PO 0817 Levothyroxine Sodium 112 MCG 0600 08/01 0600 AC 08/10 PO 0618 Oxycodone HCl See Dose Q4H PRN 07/31 2345 AC 08/09 Insts (4) PO 2348 Fluticasone/ See Dose RTBID 07/31 2020 AC 08/01 Salmeterol Insts (5) IN 1916 Senna 2 TAB DAILY 07/31 2018 AC 08/09 PO 0817 Atropine Sulfate 0.5 MG Q3MIN PRN 07/31 1999 AC IV Lidocaine HCl See Dose ONCE PRN 07/31 1999 AC Insts (6) IV Nitroglycerin 0.4 MG Q5M PRN 07/31 1999 AC SL Ondansetron HCl 4 MG Q6H PRN 07/31 1999 AC 08/07 IV 1639 Dose Instructions: (1)Clarify Med Order: WAFARIN PER PHARMACY (2)Lorazepam: 1 - 2 MG (3)Artificial Tears: 1 DROP EACH EYE (4)Oxycodone HCl: 5-10 MG (5)Fluticasone/Salmeterol: 1 CLICK (6)Lidocaine HCl: 1.5 MG/KG Allergies Coded Allergies: Aspirin (08/03/16) Morphine (DOES NOT TOLERATE MS CONTIN; SOB 08/03/16) Physical Exam Vital Signs / I&Os Vital Signs Date Time Temp Pulse Resp B/P Pulse O2 O2 Flow FiO2 Ox Delivery Rate 08/10 0657 93/50 08/10 0626 76 19 91/51 92 1.0 08/10 0617 97.7 08/10 0527 Bipap 40 08/10 0509 22 92 Bipap 30 08/10 0500 81 22 102/58 92 Bipap 08/10 0419 17 93 Bipap 24 08/10 0418 99/61 08/10 0411 75 17 89/51 93 Nasal 1.0 Cannula 08/10 0317 1.0 08/10 0309 77 22 99/48 95 Nasal 1.0 Cannula 08/10 0216 97.7 08/10 0213 72 21 93/48 94 Nasal 1.0 Cannula 08/10 0110 75 19 91/54 94 Nasal 1.0 Cannula 08/10 0010 76 21 90/63 94 Nasal 1.0 Cannula 08/09 2321 0.5 08/09 2312 75 08/09 2309 80 21 87/62 92 Nasal 1.0 Cannula 08/09 2208 79 21 95/58 92 Nasal 1.0 Cannula 08/09 2136 86 19 86/61 91 Nasal 1.0 Cannula 08/09 2127 0.5 08/09 2115 97.0 77 20 90/48 89 Nasal 0.5 Cannula 08/09 2012 82 20 100/52 92 Nasal 1.0 Cannula 08/09 2005 Nasal 1.0 Cannula 08/09 1907 98.1 82 20 105/48 92 Nasal 1.0 Cannula 08/09 1810 75 18 68/37 90 Nasal 1.0 Cannula 08/09 1712 74 17 86/50 92 Nasal 1.0 Cannula 08/09 1609 68 16 93/40 91 Bipap 08/09 1523 70 20 102/89 94 Nasal 1.0 Cannula 08/09 1502 70 02 1419 97.9 67 20 82/40 94 Nasal 1.0 Cannula 08/09 1251 68 16 84/57 91 Bipap 24 08/09 1246 65 18 75/47 87 Bipap 24 08/09 1200 70 17 84/49 97 Bipap 08/09 1130 97.0 71 20 94 Bipap 24 08/09 1100 71 18 87/49 93 Nasal 1.0 Cannula 08/09 1000 71 18 83/43 92 Nasal 1.0 Cannula 08/09 0917 Nasal 1.0 Cannula 08/09 0900 75 17 81/40 89 Nasal 1.0 Cannula 08/09 0817 81 08/09 0800 85 20 96/58 92 Nasal 1.0 Cannula I&O 08/10 0000 08/09 1600 08/09 0800 Intake Total 1792 1100 Output Total 445 326 365 Balance 1347 774 -365 General Appearance Alert, Cooperative, No acute distress Lungs Decreased air movement bilaterally. Diffuse rhonchi with basilar crackles. Minimal expiratory wheezes Cardiovascular irregular rhythm. Valve click unchanged. Rate controlled. Murmur unchanged Abdomen Normal bowel sounds, Soft, No tenderness Extremities No cyanosis, No clubbing, 1-2+ edema bilateral lower extremities Neurological Cranial nerves intact, No lateralizing signs Psych/Mental Status Slightly confused. Mood depressed LAB Results Laboratory Tests 08/10 08/10 08/10 08/09 08/09 0500 0405 0405 2340 2121 Blood Gas Sample Site LR Total CO2 (24.0 - 30.0 mmol/L) 31.7 ABG pH (7.35 - 7.45) 7.22 ABG pCO2 at Pt Temp (35 - 45 mmHg) 71.6 ABG pO2 at Pt Temp (60.0 - 80.0 mmHg) 51.7 ABG HCO3 (20.0 - 26.0 mmol/L) 29.5 ABG O2 Sat Calc/Elia (95.1 - 100.0 %) 82.9 ABG Base Excess (-6.0 - -6.0 mmol/L) 1.8 ABG Reduced Hgb (%) 17.0 ABG Carboxyhemoglobin (0.5 - 1.5 %) 2.0 ABG Methemoglobin (0.4 - 1.5 %) -1.7 Enoc Test YES Other Total Hgb (12.0 - 16.0 g/dL) 8.6 A-a O2 Gradient (7.0 - 14.0 mmHg) 23.9 Hgb O2 Saturation (95.0 - 100.0 %) 82.7 Respiration Rate (/MIN) 20 O2 Liters/Min (0 - 20 L/MIN) 0.5 Vent Mode NC FiO2 (20 - 101 %) 22 Chemistry Plasma Sodium (136 - 145 mmol/L) 142 Plasma Potassium (3.5 - 5.1 mmol/L) 3.6 Plasma Chloride (98 - 107 mmol/L) 105 CO2 (Enzymatic) (21 - 32 mmol/L) 29 BUN (7 - 18 mg/dL) 29 Creatinine (0.6 - 1.3 mg/dL) 1.1 Est GFR ( Amer) (mL/min) >60 Est GFR (Non-Af Amer) (mL/min) 53.67 Glucose (70 - 110 mg/dL) 203 Plasma Calcium (8.5 - 10.1 mg/dL) 7.9 Plasma Magnesium (1.8 - 2.4 mg/dL) 2.0 Total Bilirubin (0.0 - 1.0 mg/dL) 0.8 AST (15 - 37 U/L) 30 ALT (12 - 78 U/L) 20 Alkaline Phosphatase (46 - 116 U/L) 42 Ammonia (11 - 32 umol/L) 91 Total Protein (6.4 - 8.2 g/dL) 5.7 Albumin (3.3 - 5.0 g/dL) 2.3 Coagulation INR (0.8 - 1.2) 8.4 Protein C Antigen Cancelled Hematology WBC (4.5 - 11.5 K/uL) 7.7 RBC (4.00 - 5.20 M/uL) 2.81 Hgb (12.0 - 16.0 gm/dL) 8.8 8.6 Hct (36.0 - 46.0 %) 27.7 27.1 MCV (80 - 100 fL) 98 MCH (26 - 34 pg) 31 RDW (11.6 - 14.8 %) 17.6 Neut % (Auto) (50 - 75 %) 70 Lymph % (Auto) (25 - 40 %) 6 [place] % (Auto) (3 - 14 %) 0 Eos % (Auto) (0 - 4 %) 0 Baso % (Auto) (0 - 2 %) 0 Band Neutrophils % (0 - 8 %) 24 Metamyelocytes % (0 - 1 %) 0 Myelocytes (0 - 1 %) 0 Other Cell Type 0 Plt Count, EDTA (150 - 400 K/uL) 131 Anisocytosis (manual) 1+ PUBS MCHC (31 - 37 g/dL) 08/09 1920 0915 0900 Coagulation INR (0.8 - 1.2) 7.3 6.2 APTT (24 - 34 SECONDS) 45 Cancelled Hematology WBC (4.5 - 11.5 K/uL) 7.9 Cancelled RBC (4.00 - 5.20 M/uL) 2.86 Cancelled Hgb (12.0 - 16.0 gm/dL) 9.0 Cancelled Hct (36.0 - 46.0 %) 28.2 Cancelled MCV (80 - 100 fL) 98 Cancelled MCH (26 - 34 pg) 31 Cancelled RDW (11.6 - 14.8 %) 17.5 Cancelled Neut % (Auto) (50 - 75 %) 86 Lymph % (Auto) (25 - 40 %) 2 [place] % (Auto) (3 - 14 %) 6 Eos % (Auto) (0 - 4 %) 0 Baso % (Auto) (0 - 2 %) 0 Band Neutrophils % (0 - 8 %) 6 Metamyelocytes % (0 - 1 %) 0 Myelocytes (0 - 1 %) 0 Other Cell Type 0 Toxic Granulation 2+ Plt Count, EDTA (150 - 400 K/uL) 146 Cancelled Polychromasia 1+ [place] Cells 2+ PUBS MCHC (31 - 37 g/dL) 32 Cancelled Microbiology Date/Time Procedure - Status Source Growth 08/10 19 Clostridium difficile Toxin A & B - COMP STOOL 08/10 19 Specimen Source - COMP STOOL Assessment and Plan Problem List 1. COPD exacerbation Plan -Status slightly improved -Patient has remained off BiPAP 24 hours -Continue DuoNeb, albuterol, switch to oral corticosteroids in a.m. -Monitor 2. Chronic anticoagulation Status Chronic Onset Date Unknown Plan -INR elevated -Patient given vitamin K-2 mg by mouth -Monitor INR -No evidence of bleeding at this time 3. Valvular heart disease Status Chronic Onset Date Unknown Plan -stable -Continue anticoagulation 4. CHF (congestive heart failure) Status Chronic Onset Date Unknown Plan -patient with findings of CHF -Elevation of BNP -Continue lisinopril, Coreg, Lasix, Aldactone -Dopamine infusion -Diuresis as possible with low BP 5. Hematuria Plan -mild -Related to Nelson, anticoagulation -Monitor -Follow up urology post discharge 6. Colitis Status Acute Onset Date Unknown Plan -patient with findings of colitis on CT scan -Stool for C. difficile negative 2 -Solu-Medrol 40 mg IV twice a day -Monitor -Colonoscopy once patient's medical status stabilizes 7. Cirrhosis Status Chronic Onset Date Unknown Plan -patient with CT findings suggestive of cirrhosis -Ammonia level elevated -Begin rifaximin 400 mg by mouth 3 times a day -Patient most likely intolerant of lactulose -Monitor 8. Hypernatremia Status Acute Onset Date Unknown Plan -resolved 9. Iron deficiency anemia Status Chronic Onset Date Unknown Plan -patient with findings of iron deficiency anemia -Ferrous sulfate 325 mg by mouth twice a day on discharge -hold iron therapy at this time to not confuse dark stools as GI bleeding. 10. Adrenal nodule Status Chronic Onset Date Unknown Plan -follow up as outpatient Current status: Critical, unstable Anticipated discharge date: Anticipated discharge 3-4 days with improved status Anticipated discharge placement: [facility] Patient care time: Time spent in chart review, patient interview, physical exam, CPOE, and care documentation: 35 minutes Visit to patient today: 2 Complexity of care: High E&M Codes Rounding: Inpt-High/[id number]
[2016-08-11] VITALS (33 sets, daily range): BP systolic 77–144; BP diastolic 44–91
--- NOTE | 2016-08-11 07:41 | DIAGNOSTIC IMAGING REPORT ---
PROCEDURE: XR CHEST 1 VIEW INDICATION: CHF TECHNIQUE: Single view chest. 05:37 hours COMPARISON: 08/08/2016 and 08/05/2016 FINDINGS: Interval retraction of right-sided PICC line whose tip is now in the proximal subclavian vein. Low lung volumes. Marked cardiomegaly, stable. Median sternotomy and valvuloplasty changes. Stable mild strandy density in the right infrahilar region and left lung base suggestive of atelectasis. Diffuse thickening of the interstitial markings. Decreased central vascular congestion. Stable osseous structures. IMPRESSION: 1. Interstitial thickening suggestive of chronic edema without significant central vascular congestion. 2. Marked cardiomegaly, accentuated by low lung volumes. 3. Stable strandy bibasilar densities likely atelectatic changes. No new consolidations.
--- NOTE | 2016-08-11 16:04 | Progress Note ---
Subjective General Patient's pain is controlled with medication, however, lots of pain when medication wears off. Continues to have intermittent periods of confusion and AMS that resolve with bipap. Had to increase dopamine early this am. She was not answering questions during my visit today. Physical Exam Vital Signs / I&Os Vital Signs Date Time Temp Pulse Resp B/P Pulse O2 O2 Flow FiO2 Ox Delivery Rate 08/11 1516 1.0 08/11 1512 93 23 129/89 94 Nasal 1.0 Cannula 08/11 1403 113/55 08/11 1403 36.6 80 88 94 Nasal 1.0 Cannula 08/11 1300 85 105/59 08/11 1202 85 19 121/62 94 Nasal 1.0 Cannula 08/11 1108 1.0 08/11 1027 36.6 87 21 125/69 95 Nasal 2.0 Cannula 08/11 0900 85 08/11 0900 94 20 106/59 95 Nasal 2.0 Cannula 08/11 0839 73 22 90/49 96 Bipap 30 08/11 0800 80 109/59 08/11 0743 72 17 89/56 96 08/11 0710 36.6 78 21 91/61 96 Bipap 30 08/11 0644 104/61 08/11 0637 110/62 08/11 0630 86/45 08/11 0627 77/44 08/11 0613 88/52 08/11 0608 36.7 86 23 97/56 94 Bipap 30 08/11 0540 102/52 08/11 0529 96/48 08/11 0517 36.7 99 22 95/57 98 Nasal 1.5 Cannula 08/11 0502 1.5 08/11 0431 92/53 08/11 0424 36.7 78 23 85/57 92 Nasal 1.0 Cannula 08/11 0314 36.8 60 18 115/82 93 Nasal 1.0 Cannula 08/11 0303 1.0 08/11 0210 84 15 104/53 91 Nasal 1.0 Cannula 08/11 0110 113/71 08/11 0100 1.0 08/11 0008 76 18 120/69 90 Nasal 1.0 Cannula 08/10 2326 1.0 08/10 2310 36.7 77 19 99/66 90 Nasal 1.0 Cannula 08/10 2231 86 08/10 2229 96/62 08/10 2215 81/52 08/10 2202 80 25 86/43 96 Nasal 1.0 Cannula 08/108 86 22 106/65 94 Nasal 1.0 Cannula 08/10 2055 Nasal 1.0 Cannula 08/10 2028 98 08/10 2007 82 22 113/50 95 Nasal 1.0 Cannula 08/10 2002 1.0 08/10 1910 82 22 92/64 94 Nasal 1.0 Cannula 08/10 1805 36.8 91 22 96/52 93 Nasal 1.0 Cannula 08/10 1709 75 24 95/52 97 Nasal 1.0 Cannula 08/10 1605 80 22 104/52 94 Nasal 1.0 Cannula I&O 08/11 0000 08/10 1600 08/10 0800 Intake Total 600 1620 1416 Output Total 510 975 520 Balance 90 645 896 General Appearance Alert, No acute distress Lungs Course diffusely with diminished air movement diffusely. No notable crackles in bases. Cardiovascular S1S2, irregularly irregular rhythm, No S3, S4, G, or R. 2/6 holosystolic murmur increased at the base with snaps. Abdomen Normal bowel sounds, Soft, No tenderness Extremities 1+ bilateral LE edema Assessment and Plan Problem List 1. COPD (chronic obstructive pulmonary disease) Plan On IV steroids, nebs, and antibiotics. Minimal improvement. Continue to have intermittent episodes of AMS correlating with respiratory acidosis (hypercapnia) requiring bipap. Patient improves on bipap and it is removed, then recurs. Discussed code status with family today and all agreed to change to DNR. Patient COPD has progressed and is now very tenuous. Discussed intermediate options if patient does not improve including [facility] vs. hospice. They will think about options. 2. Valvular heart disease Status Chronic Onset Date Unknown Plan Cardiology consulted today. Recommended stopping lisinopril and coreg and trying to wean dopamine. recent echo 08/02/2016 shows valvular disease with EF 45%. Discussed blood transfusion with family. Will wait for now. I am concerned about causing pulmonary edema with a blood tranfusion. 3. Chronic anticoagulation Status Chronic Onset Date Unknown Plan Due to mechanical valve replacement. Continue medications. 4. CHF (congestive heart failure) Status Chronic Onset Date Unknown Plan Improved with lasix yesterday. Will continue lasix prn. 5. Colitis Status Acute Onset Date Unknown Plan Visible on CT- ischemic vs. infectious. s/p metronidazole and still on levofloxacin. Diarrhea has decreased. Will continue to monitor. 6. Cirrhosis Status Chronic Onset Date Unknown Plan Found on Ct. Ammonia is very elevated and may be affecting mentation. Rifaximin started. Will monitor. 7. Iron deficiency anemia Status Chronic Onset Date Unknown Plan replacing. 8. Confusion Plan Likely related to intermittent respiratory acidosis (hypercapnia) and/or elevated ammonia from liver cirrhosis. Resolves with bipap. Complicated by pain medications. 9. Chronic pain Plan Per daughter, chronic abdominal pain has been on-going for years from ascites from liver failure.
--- NOTE | 2016-08-11 21:00 | DIAGNOSTIC IMAGING REPORT ---
PROCEDURE: US ABDOMEN ULTRASOUND-LIMITED INDICATION: ascites? TECHNIQUE: Alvarez scale sonographic images of the abdomen were obtained. COMPARISON: None. FINDINGS: There is mild to moderate fluid in the all 4 quadrants. IMPRESSION: 1. Ascites.
[2016-08-12] VITALS (25 sets, daily range): BP systolic 78–144; BP diastolic 38–87
--- NOTE | 2016-08-12 11:11 | Progress Note ---
Subjective General Patient continuing to have back and abdominal pain. Weaned off of dopamine last night, and has remained off all night. Physical Exam Vital Signs / I&Os Vital Signs Date Time Temp Pulse Resp B/P Pulse O2 O2 Flow FiO2 Ox Delivery Rate 08/12 0900 88 24 108/64 93 Nasal 2.0 Cannula 08/12 0800 89 24 96/58 89 Nasal 1.5 Cannula 08/12 0716 2.0 08/12 0700 92 25 120/38 93 Nasal 1.5 Cannula 08/12 0600 98.8 84 23 91/45 93 Nasal 1.5 Cannula 08/12 0537 1.5 08/12 0517 98.2 86 24 116/81 94 Nasal 1.5 Cannula 08/12 0400 77 18 90/44 90 Bipap 28 08/12 0300 92/54 08/12 0212 91 23 142/79 91 Nasal 1.5 Cannula 08/12 0113 90 20 144/73 89 Nasal 1.0 Cannula 08/12 0010 98.2 75 20 124/64 95 Nasal 1.5 Cannula 08/11 2332 1.5 08/11 2300 75 20 123/51 95 08/11 2225 Nasal 1.5 Cannula 08/11 2204 81 23 107/60 98 Nasal 1.5 Cannula 08/11 2108 77 24 90/52 100 Nasal 1.5 Cannula 08/11 2017 98 26 112/61 95 Nasal 1.5 Cannula 08/11 1918 1.5 08/11 1911 94 26 144/88 93 Nasal 1.0 Cannula 08/11 1808 98.2 100 24 122/91 94 Nasal 1.0 Cannula 08/11 1704 92 25 110/84 94 Nasal 1.0 Cannula 08/11 1608 89 23 89/58 95 Nasal 1.0 Cannula 08/11 1516 1.0 08/11 1512 93 23 129/89 94 Nasal 1.0 Cannula 08/11 1403 113/55 08/11 1403 97.9 80 88 94 Nasal 1.0 Cannula 08/11 1300 85 105/59 08/11 1202 85 19 121/62 94 Nasal 1.0 Cannula 08/11 1108 1.0 I&O 08/12 0000 08/11 1600 08/11 0800 Intake Total 150 1048 307 Output Total 500 1726 434 Balance -350 -678 -127 General Appearance Alert, Mild distress, Estonian speaking Lungs Diminished throughout, no crackles or wheezing. Neck Supple Cardiovascular Irregularly irregular, ii/vi systolic murmur at apex Abdomen Normal bowel sounds, Soft, tender throughout to palpation, nondistended Extremities 1+LE edema b/l LAB Results Laboratory Tests 08/12 0330 Chemistry Plasma Sodium (136 - 145 mmol/L) 141 Plasma Potassium (3.5 - 5.1 mmol/L) 3.7 Plasma Chloride (98 - 107 mmol/L) 103 CO2 (Enzymatic) (21 - 32 mmol/L) 31 BUN (7 - 18 mg/dL) 19 Creatinine (0.6 - 1.3 mg/dL) 0.7 Est GFR ( Amer) (mL/min) >60 Est GFR (Non-Af Amer) (mL/min) >60 Glucose (70 - 110 mg/dL) 137 Plasma Calcium (8.5 - 10.1 mg/dL) 8.4 Plasma Magnesium (1.8 - 2.4 mg/dL) 2.0 Coagulation INR (0.8 - 1.2) 2.3 Hematology WBC (4.5 - 11.5 K/uL) 7.5 RBC (4.00 - 5.20 M/uL) 2.95 Hgb (12.0 - 16.0 gm/dL) 9.1 Hct (36.0 - 46.0 %) 28.1 MCV (80 - 100 fL) 95 MCH (26 - 34 pg) 31 RDW (11.6 - 14.8 %) 16.9 Neut % (Auto) (50 - 75 %) 92.0 Lymph % (Auto) (25 - 40 %) 2.0 [place] % (Auto) (3 - 14 %) 5.7 Eos % (Auto) (0 - 4 %) 0.3 Baso % (Auto) (0 - 2 %) 0 Plt Count, EDTA (150 - 400 K/uL) 123 PUBS MCHC (31 - 37 g/dL) 33 Assessment and Plan Problem List 1. Acute respiratory failure with hypoxia and hypercarbia Plan Likely a combination of COPD exacerbation and decompensated heart failure. Will try to wean off oxygen as possible, treatment as below. 2. COPD exacerbation Plan On prednisone, and continuing advair and neb treatments. 3. CHF (congestive heart failure) Status Chronic Onset Date Unknown Plan Acute decompensated systolic heart failure, EF 45%. Continuing diuresis, monitoring I/O's, and following renal function and electrolytes. Continue her home spironolactone, but holding bblocker and ALEXANDRA for now, due to recent hypotension requiring dopamine. 4. Valvular heart disease Status Chronic Onset Date Unknown Plan Continuing anticoagulation w/ coumadin. 5. Cirrhosis Status Chronic Onset Date Unknown Plan Ascites noted on US yesterday, and para planned for today to r/o SBP. NH3 had been high, and will continue rifaximin and start on lactulose w/ goal of 3BM/ day. 6. Confusion Plan 2/2 hypercarbia or hepatic encephalopathy. Treatments as above. FEN: Cardiac PPx: on coumadin Code: DNR/DNI Dispo: Inpatient for close respiratory monitoring and treatment, as above. Family apparently have been considering hospice services, and will follow up with them about that. E&M Codes Rounding: Inpt-High/[id number]
--- NOTE | 2016-08-12 14:46 | DIAGNOSTIC IMAGING REPORT ---
PROCEDURE: US ABDOMEN ULTRASOUND-LIMITED INDICATION: ASCITES TECHNIQUE: Alvarez scale and color Doppler sonographic images of the abdomen were obtained. COMPARISON: Abdominal ultrasound 08/11/2016 pill FINDINGS: The patient was originally scheduled for ultrasound guided paracentesis but the patient was unable to lay still and insufficient fluid was present for safe access for paracentesis. IMPRESSION: 1. Small ascites. Ultrasound guided paracentesis cancelled 2. Results discussed with the hospitalist
[2016-08-13] VITALS (16 sets, daily range): BP systolic 89–116; BP diastolic 41–78
--- NOTE | 2016-08-13 11:01 | Progress Note ---
Subjective General Looks much more comfortable today. Breathing appears comfortable. Physical Exam Vital Signs / I&Os Vital Signs Date Time Temp Pulse Resp B/P Pulse O2 O2 Flow FiO2 Ox Delivery Rate 08/13 0934 92 19 95/58 95 Nasal 2.0 Cannula 08/13 0800 2.0 08/13 0800 89 20 114/67 96 08/13 0710 88 20 110/50 94 Nasal 2.0 Cannula 08/13 0634 98.1 82 21 108/56 95 Nasal 2.0 Cannula 08/13 0500 86 23 102/41 96 Nasal 2.0 Cannula 08/13 0409 2.0 08/13 0408 85 23 108/53 96 Nasal 2.0 Cannula 08/13 0311 98.2 87 21 98/61 96 Nasal 2.0 Cannula 08/13 0232 90 24 93/56 96 Nasal 2.0 Cannula 08/13 0200 86 18 91/51 96 Nasal 2.0 Cannula 08/13 0103 84 20 90/48 95 Nasal 2.0 Cannula 08/13 0019 2.0 08/13 0014 84 20 114/55 94 Nasal 2.0 Cannula 08/12 2300 98.8 88 23 124/65 95 Nasal 2.0 Cannula 08/12 2200 89 21 94/68 94 Nasal 2.0 Cannula 08/12 2100 88 23 78/49 96 Nasal 2.0 Cannula 08/12 2031 2.0 08/12 2000 2.0 08/12 2000 104 21 127/73 94 Nasal 2.0 Cannula 08/12 1930 101 27 114/77 93 Nasal 2.0 Cannula 08/12 1823 98.2 102 18 126/70 93 Nasal 2.0 Cannula 08/12 1735 119/70 02 1722 98.4 78 21 78/60 96 Nasal 2.0 Cannula 08/12 1610 99.3 92 24 102/53 96 Nasal 2.0 Cannula 08/12 1527 99.9 96 25 100/53 96 Nasal 2.0 Cannula 08/12 1516 2.0 08/12 1410 100.2 108 17 112/70 93 Nasal 2.0 Cannula 08/12 1300 52 27 120/87 95 Nasal 2.0 Cannula 08/12 1232 98.4 02 1200 93 24 96/54 95 Nasal 2.0 Cannula 08/12 1108 2.0 08/12 1100 88 22 111/51 95 Nasal 2.0 Cannula I&O 08/13 0000 08/12 1600 08/12 0800 Intake Total 100 175 Output Total 350 1875 1549 Balance -250 -1875 -1374 General Appearance Alert, Cooperative, No acute distress HEENT Moist mucous membranes Lungs Diminished, no crackles or wheezing Neck Supple Cardiovascular Irregular S1S2, no murmur Abdomen Normal bowel sounds, Soft, slightly tender to palpation throughout w/o rebound or guarding Extremities anasarca seems to be improving. Still w/ 1+ LE edema b/l Skin Diffuse bruising Neurological No lateralizing signs LAB Results Laboratory Tests 08/13 08/13 0500 0400 Chemistry Plasma Sodium (136 - 145 mmol/L) 145 Plasma Potassium (3.5 - 5.1 mmol/L) 3.6 Plasma Chloride (98 - 107 mmol/L) 107 CO2 (Enzymatic) (21 - 32 mmol/L) 34 BUN (7 - 18 mg/dL) 14 Creatinine (0.6 - 1.3 mg/dL) 0.8 Est GFR ( Amer) (mL/min) >60 Est GFR (Non-Af Amer) (mL/min) >60 Glucose (70 - 110 mg/dL) 121 Plasma Calcium (8.5 - 10.1 mg/dL) 8.5 Plasma Magnesium Cancelled Total Bilirubin (0.0 - 1.0 mg/dL) 2.1 AST (15 - 37 U/L) 28 ALT (12 - 78 U/L) 16 Alkaline Phosphatase (46 - 116 U/L) 65 Total Protein (6.4 - 8.2 g/dL) 5.4 Albumin (3.3 - 5.0 g/dL) 2.2 Coagulation INR (0.8 - 1.2) 2.1 Cancelled Hematology WBC (4.5 - 11.5 K/uL) 6.1 Cancelled RBC (4.00 - 5.20 M/uL) 2.65 Cancelled Hgb (12.0 - 16.0 gm/dL) 8.4 Cancelled Hct (36.0 - 46.0 %) 25.4 Cancelled MCV (80 - 100 fL) 96 Cancelled MCH (26 - 34 pg) 32 Cancelled RDW (11.6 - 14.8 %) 16.4 Cancelled Neut % (Auto) (50 - 75 %) 88.7 Lymph % (Auto) (25 - 40 %) 3.1 [place] % (Auto) (3 - 14 %) 7.7 Eos % (Auto) (0 - 4 %) 0.3 Baso % (Auto) (0 - 2 %) 0.2 Plt Count, EDTA (150 - 400 K/uL) 92 Cancelled PUBS MCHC (31 - 37 g/dL) 33 Cancelled Assessment and Plan Problem List 1. Acute respiratory failure with hypoxia and hypercarbia Plan Will continue trying to wean down oxygen with treatment below. 2. COPD exacerbation Plan Will decrease prednisone to 40mg daily. Continue advair and neb treatments. 3. CHF (congestive heart failure) Status Chronic Onset Date Unknown Plan Diuresed about 2L over the past 24hrs, and anasarca seems a bit better today. EF noted to be 45%. Monitoring renal function and electrolytes. Continuing spironolactone, but holding bblocker and ALEXANDRA due to low BP's. 4. Valvular heart disease Status Chronic Onset Date Unknown Plan Continuing coumadin. 5. Cirrhosis Status Chronic Onset Date Unknown Plan Not enough ascites to safely tap on US. Plus, had about 12 days of abx therapy, so chance of SBP is quite low. Continuing lactulose to see if this helps clear her mental status. 6. Colitis Status Acute Onset Date Unknown Plan Has had about 12 days of abx, and no diarrhea at this time. Will discontinue levaquin. FEN: cardiac PPx: on coumadin Code: DNR/DNI Dispo: Pending continued diuresis and treatment of her respiratory failure. Possible hospice. E&M Codes Rounding: Inpt-High/12857
[2016-08-14 02:06] VITALS: BP 115/88
[2016-08-14 07:23] VITALS: BP 95/46
[2016-08-14 11:47] VITALS: BP 102/74
--- NOTE | 2016-08-14 12:34 | Progress Note ---
Subjective General I spoke with the patient's daughter yesterday afternoon. She feels that the patient's breathing is back at her baseline. She states that she understands how sick her mom is, and her goal is really to keep her comfortable. There had been discussions about possibly discharging her to LTAC, but the daughter does not think that her mom would be happy with this. We discussed the possibility of hospice in depth, and the daughter is considering this. Physical Exam Vital Signs / I&Os Vital Signs Date Time Temp Pulse Resp B/P Pulse O2 O2 Flow FiO2 Ox Delivery Rate 08/14 1147 98.2 87 26 102/74 98 Nasal 1.5 Cannula 08/14 0723 98.1 86 20 95/46 100 Nasal 1.5 Cannula 08/14 0359 1.0 08/14 0206 98.4 88 18 115/88 99 Nasal 2.0 Cannula 08/13 2346 2.0 08/13 2227 98.2 87 18 94/48 97 Nasal 2.0 Cannula 08/13 2000 Nasal 2.0 Cannula 08/13 1953 2.0 08/13 1909 98.1 89 22 94/78 100 Nasal 2.0 Cannula 08/13 1706 2.0 08/13 1424 98.2 89 20 116/62 100 Nasal 1.0 Cannula 08/13 1400 2.0 I&O 08/14 0000 08/13 1600 08/13 0800 Intake Total 450 440 900 Output Total 400 1375 615 Balance 50 -935 285 General Appearance Alert, Cooperative, No acute distress HEENT Moist mucous membranes Lungs Clear to auscultation Neck Supple Cardiovascular Irregular S1S2, no murmur Abdomen Normal bowel sounds, Soft, tender throughout to palpation w/o rebound or guarding. Extremities 1+ LE edema all the way up to her thighs b/l Skin No Rashes LAB Results Laboratory Tests 08/14 0450 Chemistry Plasma Sodium (136 - 145 mmol/L) 144 Plasma Potassium (3.5 - 5.1 mmol/L) 3.3 Plasma Chloride (98 - 107 mmol/L) 104 CO2 (Enzymatic) (21 - 32 mmol/L) 35 BUN (7 - 18 mg/dL) 9 Creatinine (0.6 - 1.3 mg/dL) 0.7 Est GFR ( Amer) (mL/min) >60 Est GFR (Non-Af Amer) (mL/min) >60 Glucose (70 - 110 mg/dL) 108 Plasma Calcium (8.5 - 10.1 mg/dL) 8.2 Plasma Magnesium (1.8 - 2.4 mg/dL) 1.8 Coagulation INR (0.8 - 1.2) 2.2 Hematology WBC (4.5 - 11.5 K/uL) 5.5 RBC (4.00 - 5.20 M/uL) 2.72 Hgb (12.0 - 16.0 gm/dL) 8.6 Hct (36.0 - 46.0 %) 26.1 MCV (80 - 100 fL) 96 MCH (26 - 34 pg) 32 RDW (11.6 - 14.8 %) 16.8 Neut % (Auto) (50 - 75 %) 85.8 Lymph % (Auto) (25 - 40 %) 4.3 [place] % (Auto) (3 - 14 %) 8.2 Eos % (Auto) (0 - 4 %) 1.7 Baso % (Auto) (0 - 2 %) 0 Plt Count, EDTA (150 - 400 K/uL) 100 PUBS MCHC (31 - 37 g/dL) 33 Assessment and Plan Problem List 1. COPD exacerbation Plan Will need long taper of steroids. Currently at 40mg daily. Continue neb treatments. 2. CHF (congestive heart failure) Status Chronic Onset Date Unknown Plan Still a bit overloaded based on her edema. Diuresing well. Will continue with current dosing, monitoring renal function closely. Continuing spironolactone. Holding bblocker and ALEXANDRA due to low BPs. Due to her cirrhosis, she may not be able to tolerate these medications as it seems her baseline BP is remaining in the 90's. 3. Valvular heart disease Status Chronic Onset Date Unknown Plan Continuing coumadin. Patient has both aortic and mitral mechanical valves. 4. Cirrhosis Status Chronic Onset Date Unknown Plan Decreasing lactulose, goal of 3BM/day. MS has been ok. FEN: cardiac PPx: on coumadin Code: DNR/DNI Dispo: We are nearing the end of her diuresis, and I discussed the fact that she will be ready for discharge in the next couple days. Daughter is deciding about potential hospice. E&M Codes Rounding: Inpt-Moderate/01267
[2016-08-14 14:31] VITALS: BP 100/70
[2016-08-14 18:55] VITALS: BP 86/53
[2016-08-14 22:20] VITALS: BP 99/61
[2016-08-15 03:08] VITALS: BP 96/68
[2016-08-15 06:37] VITALS: BP 89/52
[2016-08-15 11:16] VITALS: BP 115/57
[2016-08-15 14:13] VITALS: BP 98/53
--- NOTE | 2016-08-15 14:57 | Progress Note ---
Subjective General Patient doing well. Feels fine today. No abdominal pain this morning, eating well for breakfast. Physical Exam Vital Signs / I&Os Vital Signs Date Time Temp Pulse Resp B/P Pulse O2 O2 Flow FiO2 Ox Delivery Rate 08/15 1413 99.3 92 21 98/53 95 Nasal 1.5 Cannula 08/15 1122 1.5 08/15 1116 99.0 92 24 115/57 97 Nasal 1.5 Cannula 08/15 0745 Nasal 1.5 Cannula 08/15 0720 1.5 08/15 0637 98.2 87 18 89/52 95 Nasal 1.5 Cannula 08/15 0314 1.5 08/15 0308 98.2 93 18 96/68 98 Nasal 1.5 Cannula 08/14 2348 1.5 08/14 2220 99.0 91 20 99/61 98 Nasal 1.5 Cannula 08/14 2145 1.5 08/14 1948 Nasal 2.0 Cannula 08/14 1855 99.5 92 22 86/53 97 Nasal 2.0 Cannula 08/14 1600 1.5 I&O 08/15 0000 08/14 1600 08/14 0800 Intake Total 440 440 650 Output Total 500 1025 440 Balance -60 -585 210 General Appearance Alert, Oriented X3, Cooperative, No acute distress HEENT Moist mucous membranes Lungs Clear to auscultation Neck Supple Cardiovascular Irregular S1S2, no murmurs Abdomen Normal bowel sounds, Soft, No tenderness Extremities 1+ LE edema all the way up thighs Skin Bruising on arms Neurological No lateralizing signs Psych/Mental Status Mental status normal, Mood normal LAB Results Laboratory Tests 08/15 0523 Chemistry Plasma Sodium (136 - 145 mmol/L) 140 Plasma Potassium (3.5 - 5.1 mmol/L) 3.8 Plasma Chloride (98 - 107 mmol/L) 103 CO2 (Enzymatic) (21 - 32 mmol/L) 33 BUN (7 - 18 mg/dL) 12 Creatinine (0.6 - 1.3 mg/dL) 0.7 Est GFR ( Amer) (mL/min) >60 Est GFR (Non-Af Amer) (mL/min) >60 Glucose (70 - 110 mg/dL) 136 Plasma Calcium (8.5 - 10.1 mg/dL) 8.0 Plasma Magnesium (1.8 - 2.4 mg/dL) 1.8 Coagulation INR (0.8 - 1.2) 3.0 Hematology WBC (4.5 - 11.5 K/uL) 5.9 RBC (4.00 - 5.20 M/uL) 2.62 Hgb (12.0 - 16.0 gm/dL) 8.4 Hct (36.0 - 46.0 %) 25.4 MCV (80 - 100 fL) 97 MCH (26 - 34 pg) 32 RDW (11.6 - 14.8 %) 17.7 Neut % (Auto) (50 - 75 %) 83.9 Lymph % (Auto) (25 - 40 %) 5.1 [place] % (Auto) (3 - 14 %) 9.7 Eos % (Auto) (0 - 4 %) 1.2 Baso % (Auto) (0 - 2 %) 0.1 Plt Count, EDTA (150 - 400 K/uL) 106 PUBS MCHC (31 - 37 g/dL) 33 Assessment and Plan Problem List 1. CHF (congestive heart failure) Status Chronic Onset Date Unknown Plan Continuing lasix IV for now, but this can be continued PO as an outpatient as well. Patient has been doing really well with diuresis, but still has LE edema. 2. COPD (chronic obstructive pulmonary disease) Plan Tapering steroids, will be down to 20mg tomorrow. Continue nebs. 3. Valvular heart disease Status Chronic Onset Date Unknown Plan Continuing coumadin w/ goal of 2.5-3.5 due to 2 mechanical valves. 4. Cirrhosis Status Chronic Onset Date Unknown Plan Continue lactulose for 3BM daily 5. Hematuria Plan Removing joseph today and will monitor. FEN: cardiac PPx: on coumadin Code: DNR/DNI Dispo: Plan is for transfer to [facility] tomorrow. E&M Codes Rounding: Inpt-Moderate/87897
[2016-08-15 19:25] VITALS: BP 109/50
[2016-08-15 22:57] VITALS: BP 96/60
[2016-08-16 02:18] VITALS: BP 92/57
[2016-08-16 06:50] VITALS: BP 96/62
--- NOTE | 2016-08-16 09:01 | Progress Note ---
Subjective General Note Date: August 16, 2016 Admission Date: July 31, 2016 Hospital Day: 17 PCP: Carmen Nelson MD Status: Inpatient Advanced Directive: FULL CODE Room: 304 Brief History: The patient is a 61-year-old female with a significant past medical history of congestive heart failure, chronic obstructive pulmonary disease, valvular heart disease status post aortic/mitral valve replacement, hypothyroidism, gastroesophageal reflux, atrial fibrillation, chronic pain syndrome, and chronic anticoagulation, who presented to [facility] Emergency Department on the day of admission with complaints of shortness of breath. [facility] ER evaluation was consistent with exacerbation of COPD, anemia-H&H 6.8/20.2, and possible early CHF. Secondary to the above, the patient was admitted by Lew Martini M.D. for further evaluation and treatment. The patient developed increasing shortness of breath on the evening of August 01, 2016. This progressed into respiratory distress requiring transfer to medical intensive care unit and subsequent intubation with mechanical ventilation. The patient was subsequently weaned from mechanical ventilation but has required ongoing BiPAP intermittently For other history present illness, past medical history, family history, social history, review of systems, and admission physical examination please see the patient's history and physical examination and ER visit note in the patient's medical record. Subjective: The patient states she is doing well today. Alert, oriented. Mild shortness of breath but improved. Patient requests: None Medications and Allergies Medications Current Medications Sig/Matilde Start time Last Medication Dose Route Stop Time Status Admin Prednisone 20 MG DAILY 08/16 0900 AC PO Insulin Human Lispro See Dose ACHS 08/15 2100 AC 08/15 Insts (1) SC 2156 Lactulose 30 GM DAILY 08/15 0900 AC 08/15 PO 1001 Spironolactone 25 MG BID 08/15 0900 AC 08/15 PO 2156 Furosemide 20 MG DAILY 08/12 1101 AC 08/15 IV 1001 Ferrous Sulfate 325 MG BIDWC 08/11 0900 AC 08/15 PO 1903 Rifaximin 400 MG TID 08/10 1500 AC 08/16 PO 0642 Sodium Chloride 1,000 ML ASDIRECTED 08/10 1500 AC 08/10 IV 1514 Lactobacillus 1 TAB TID 08/09 2200 AC 08/16 PO 0642 Clarify Med Order See Dose ASDIRECTED 08/09 1400 AC Insts (2) PO Pantoprazole Sodium 40 MG 0600 08/05 0600 AC 08/16 IV 0641 Metoprolol Tartrate 5 MG Q3H PRN 08/04 2030 AC 08/07 IV 0428 Morphine Sulfate 2 MG Q2H PRN 08/03 1145 AC 08/16 IV 0641 Morphine Sulfate 4 MG Q2H PRN 08/03 1145 AC 08/06 IV 1843 Levothyroxine Sodium 25 MCG 0600 08/03 0600 AC 08/16 PTUBE 0641 Albuterol/Ipratropium 3 ML RTQ4H 08/02 0000 AC 08/16 IN 0743 Acetaminophen 650 MG Q4H PRN 08/01 2345 AC 08/03 DE 1046 Artificial Tears See Dose Q4H PRN 08/01 2300 AC Insts (3) OP Albuterol Sulfate 2.5 MG Q2H PRN 08/01 1030 AC 08/11 IN 0100 Levothyroxine Sodium 112 MCG 00 08/01 0600 AC 08/16 PO 0641 Oxycodone HCl See Dose Q4H PRN 07/31 2345 AC 08/16 Insts (4) PO 0435 Fluticasone/ See Dose RTBID 07/31 2020 AC 08/16 Salmeterol Insts (5) IN 0743 Atropine Sulfate 0.5 MG Q3MIN PRN 07/31 1999 AC IV Lidocaine HCl See Dose ONCE PRN 07/31 1999 AC Insts (6) IV Nitroglycerin 0.4 MG Q5M PRN 07/31 1999 AC SL Ondansetron HCl 4 MG Q6H PRN 07/31 1999 AC 08/07 IV 1639 Dose Instructions: (1)Insulin Human Lispro: MEDIUM DOSE SLIDING SCALE (2)Clarify Med Order: WAFARIN PER PHARMACY (3)Artificial Tears: 1 DROP EACH EYE (4)Oxycodone HCl: 5-10 MG (5)Fluticasone/Salmeterol: 1 CLICK (6)Lidocaine HCl: 1.5 MG/KG Allergies Coded Allergies: Aspirin (08/03/16) Morphine (DOES NOT TOLERATE MS CONTIN; SOB 08/03/16) Physical Exam Vital Signs / I&Os Vital Signs Date Time Temp Pulse Resp B/P Pulse O2 O2 Flow FiO2 Ox Delivery Rate 08/16 0740 1.5 08/16 0650 98.1 90 17 96/62 93 Nasal 1.5 Cannula 08/16 0400 1.5 08/16 0218 98.4 92 18 92/57 94 Nasal 1.5 Cannula 08/16 0000 1.5 08/15 2257 98.1 92 23 96/60 98 Nasal 1.5 Cannula 08/15 2100 Nasal 1.5 Cannula 08/15 1943 1.5 08/15 1925 98.4 86 24 109/50 100 Nasal 1.5 Cannula 08/15 1537 1.5 08/15 1413 99.3 92 21 98/53 95 Nasal 1.5 Cannula 08/15 1122 1.5 08/15 1116 99.0 92 24 115/57 97 Nasal 1.5 Cannula I&O 08/16 0000 08/15 1600 08/15 0800 Intake Total 400 440 450 Output Total 950 450 400 Balance -550 -10 50 General Appearance Alert, Oriented X3, Cooperative, No acute distress Lungs Scattered rhonchi. No wheezes. Cardiovascular Irregular rhythm. Rate normal. Valve click unchanged. Abdomen Normal bowel sounds, Soft, No tenderness Extremities No cyanosis, No clubbing, 2+ edema bilaterally lower extremities Neurological Cranial nerves intact, No lateralizing signs Psych/Mental Status Mental status normal, Mood normal LAB Results Laboratory Tests 08/16 0430 Chemistry Plasma Sodium (136 - 145 mmol/L) 141 Plasma Potassium (3.5 - 5.1 mmol/L) 4.1 Plasma Chloride (98 - 107 mmol/L) 103 CO2 (Enzymatic) (21 - 32 mmol/L) 33 BUN (7 - 18 mg/dL) 14 Creatinine (0.6 - 1.3 mg/dL) 0.7 Est GFR ( Amer) (mL/min) >60 Est GFR (Non-Af Amer) (mL/min) >60 Glucose (70 - 110 mg/dL) 98 Plasma Calcium (8.5 - 10.1 mg/dL) 8.2 Plasma Magnesium (1.8 - 2.4 mg/dL) 1.8 Coagulation INR (0.8 - 1.2) 2.6 Assessment and Plan Problem List 1. CHF (congestive heart failure) Status Chronic Onset Date Unknown Plan -stable. -Switched to oral diuretics -Continue to hold ALEXANDRA inhibitor/Coreg secondary to hypotension. -Possible discharge in a.m. to senior care facility. 2. COPD exacerbation Plan -stable -Continue inhalational bronchodilators/by mouth corticosteroids -Wean oxygen as appropriate 3. Cirrhosis Status Chronic Onset Date Unknown Plan -stable -Mental status improved -Continue Aldactone, Lasix, lactulose, and rifaximin 4. Colitis Status Acute Onset Date Unknown Plan -much improved -Outpatient follow-up -Consider colonoscopy if overall status improves 5. Iron deficiency anemia Status Chronic Onset Date Unknown Plan -ferrous sulfate 325 milligrams by mouth twice a day on discharge 6. Hematuria Plan -persistent -Outpatient follow-up with urology for evaluation 7. Chronic anticoagulation Status Chronic Onset Date Unknown Plan -INR 2.6 -Continue present therapy -Monitor 8. Valvular heart disease Status Chronic Onset Date Unknown Plan -stable -No further evaluation -Continue anticoagulation 9. Anemia Status Chronic Onset Date Unknown Plan -mild -Iron therapy and discharge -Stable Current status: Fair, improved Anticipated discharge date: Anticipated discharge in a.m. Anticipated discharge placement: senior care facility Patient care time: Time spent in chart review, patient interview, physical exam, CPOE, and care documentation: 25 minutes Visit to patient today: 1 Complexity of care: moderate E&M Codes Rounding: Inpt-Moderate/62178
[2016-08-16 10:37] VITALS: BP 115/57
[2016-08-16 15:36] VITALS: BP 96/81
[2016-08-16 18:48] VITALS: BP 98/46
[2016-08-16 22:21] VITALS: BP 91/52
[2016-08-17 02:18] VITALS: BP 97/78
[2016-08-17 06:10] VITALS: BP 105/53
[2016-08-17] MEDS ORDERED: LACTULOSE PO (14:34)
[2016-08-17] MEDS ORDERED: XIFAXAN200 MG PO (14:34)
[2016-08-17] MEDS ORDERED: IPRATROPIUM BROMIDE/ IN (14:34)
[2016-08-17] MEDS ORDERED: COUMADIN2.5 MG PO (14:34)
[2016-08-17] MEDS ORDERED: SPIRONOLACTONE25 MG PO (14:34)
[2016-08-17] MEDS ORDERED: ALBUTEROL2.5 MG/3 M IN (14:34)
[2016-08-17] MEDS ORDERED: NYSTATIN100000 M2 TOP (14:34)
--- NOTE | 2016-08-17 14:39 | Provider's Discharge Care Plan ---
Problem, Goal, Plan Problem List 1. COPD (chronic obstructive pulmonary disease) Goals: Improve disease control, Prevent disease progress Instructions: Follow up as directed, Take meds as directed 2. Chronic anticoagulation Goals: Improve disease control, Prevent disease progress Instructions: Follow up as directed, Take meds as directed, Have your ProTime rechecked in 2 days by your physician 3. CHF (congestive heart failure) Goals: Improve disease control, Prevent disease progress Instructions: Follow up as directed, Take meds as directed, Daily weights. Low-salt diet. Monitor electrolytes while on diuretic therapy. Notify M.D. of 2 pounds or greater weight gain. 4. Hematuria Goals: Improve disease control, Prevent disease progress Instructions: Follow up as directed, Take meds as directed, Follow-up with your family physician with scheduling of outpatient evaluation by urology secondary to hematuria. 5. Colitis Goals: Improve disease control, Prevent disease progress Instructions: Follow up as directed, Take meds as directed, Follow-up with your family physician for scheduling of outpatient colonoscopy if medical status improves to the point where it would be safe to consider colonoscopy 6. Cirrhosis Goals: Improve disease control, Prevent disease progress Instructions: Follow up as directed, Take meds as directed, Avoid processed foods, Low-salt diet. Continue present medical regimen.
[2016-08-17] MEDS ORDERED: O2 IN (14:41)
--- NOTE | 2016-08-17 14:42 | Discharge Summary ---
Discharge Summary Report Admit Date 08/02/16 Discharge Date 08/17/16 Admission Diagnosis 1. COPD exacerbation 2. CHF 3. Anemia 4. Occult GI bleeding 5. Chronic anticoagulation 6. Chronic kidney disease 7. Adrenal nodule Discharge Diagnosis 1. COPD exacerbation 2. CHF 3. Iron deficiency anemia 4. Occult GI bleeding 5. Chronic anticoagulation 6. Chronic kidney disease 7. Adrenal nodule 8. Cirrhosis 9. Hematuria 10. Colitis 11. Valvular heart disease-status post aortic/mitral replacement 12. SIRS Brief History The patient is a 61-year-old female with a significant past medical history of congestive heart failure, chronic obstructive pulmonary disease, valvular heart disease status post aortic/mitral valve replacement, hypothyroidism, gastroesophageal reflux, atrial fibrillation, chronic pain syndrome, and chronic anticoagulation, who presented to [facility] Emergency Department on the day of admission with complaints of shortness of breath. [facility] ER evaluation was consistent with exacerbation of COPD, anemia-H&H 6.8/20.2, and possible early CHF. Secondary to the above, the patient was admitted by Lew Martini M.D. for further evaluation and treatment. For other history present illness, past medical history, family history, social history, review of systems, and admission physical examination please see the patient's history and physical examination and ER visit note in the patient's medical record. Hospital Course The following problems and their management were noted during the patient's hospitalization 1. COPD exacerbation The patient had findings of COPD exacerbation. The patient had progressive symptoms requiring intubation/mechanical ventilation. She had prolonged treatment with BiPAP. The patient was treated with bronchodilators in the form of DuoNeb, albuterol and IV/by mouth corticosteroids. Her symptoms gradually improved. She required ongoing O2 supplementation at discharge. The patient was discharged on DuoNeb one via nebulizer every 6 hours, albuterol 2.5mg q3hrs prn , prednisone 10mg po daily, and Advair 100/50 1 inh bid. O2 0.5L/min via NC 2. CHF The patient has a history of CHF. Echocardiogram showed mild left ventricular systolic dysfunction with EF of 45%. No clear significant valvular stenosis. The patient had severe pulmonary hypertertension. She was treated with combination therapy of diuretics including spironolactone 25 mg by mouth twice a day, Lasix 40 mg by mouth twice a day, and lisinopril 2.5 mg by mouth daily. Her symptoms were adequately controlled on this regimen. Beta blockers were not tolerated secondary to hypotension. She was discharged on a low-salt diet. 3. Iron deficiency anemia The patient had findings of iron deficiency anemia. H&H on discharge was 8.1/ 24.8. The patient received 3 units packed RBC during her hospitalization. It was felt that the patient should undergo follow-up colonoscopy when stable medically. She had no evidence of significant ongoing GI bleeding during her hospitalization. Stool had been heme positive in the setting of colitis which improved during the patient's hospital stay. She was discharged on ferrous sulfate 325 mg by mouth twice a day 4. Occult GI bleeding The patient was noted to have heme positive stools in the setting of colitis and excessive anticoagulaion. There was no evidence of significant GI bleediing at the time of discharge. H&H was stable. It was recommended that the patient consider colonoscopy on an outpatient basis with improved medical status. 5. Chronic anticoagulation Stable at time of discharge. INR 2.1. Patient scheduled for follow-up INR with adjustments in therapy to run 2.5-3.0 as outpatient. 6. Chronic kidney disease Stable. BUN and creatinine 13/0.9 on discharge. 7. Adrenal nodule Patient with findings of left adrenal nodule. Recommend follow-up evaluation in one month to reevaluate once patient's other medical status stable. 8. Cirrhosis The patient was found to have symptoms/physical findings consistent with cirrhosis. This was associated with mild hepatic encephalopathy. The patient was treate lactulose, rifaximin, Aldactone, Lasix. Symptoms were adequately controlled at discharge with no clear hepatic encephalopathy. Outpatient follow -up with PCP. Low-salt diet. 9. Hematuria The patient was noted to have findings of hematuria associated with Nelson catheterization and anticoagulation. This persisted status post removal of Nelson catheter. Outpatient follow-up with urology is recommended if medical status improves for possible cystoscopy . 10. Colitis The patient was noted to have findings of colitis on CT scan. The symptoms improved with corticosteroids. Outpatient follow-up with gastroenterology with improved status. 11. Valvular heart disease-status post aortic/mitral replacement Stable. Continue anticoagulation. 12. SIRS The patient had findings of systemic inflammatory response during her hospital stay. Patient treated with broad-spectrum antimicrobials. Chest x-ray showed suspected infiltrate with positive sputum cultures for Pseudomonas and staph. Blood culture positive for staph aureus MSSA. The patient completed a full course of antimicrobials prior to discharge. No evidence of infectious process at discharge. General Appearance Alert, Oriented X3, Cooperative, No acute distress Lungs Scattered rhonchi, minimal improved expiratory wheezes Cardiovascular Irregular rhythm. Rate controlled. Valve click/murmur unchanged. Abdomen Normal bowel sounds, Soft, No tenderness Neurological Strength at 5/5 X4 ext, Cranial nerves 3-12 NL Psych/Mental Status Mental status NL, Mood NL Discharge Instructions/Meds For other recommendations regarding discharge diet, activity, follow-up, and discharge medications please see the patient's discharge instructions. Discharge condition: Poor, improved but unstable Greater than 30 minutes was spent in the patient's discharge preparation The patient was interviewed and examined on the day of discharge. Patient placed on DNR/DNI status The patient's overall status was poor at discharge. Her cardiopulmonary status did not allow complete evaluation of several problems noted above. Recommended follow-up should her physical status improved to the point she could tolerate further diagnostic testing and therapeutic Retention. E&M Codes Discharge: Inpt >30 min spent/[id number]
[2016-08-17] MEDS ORDERED: ROXICODONE5 MG PO (14:52)
== END 2016-08-17 15:30 | DRG 208 ==
LOC: ED SRH 14:42 → TRANS SRH 19:25 → ACUTE2 SRH 19:25 → CC SRH 08-01 22:29
PROVIDERS: ADMIT Internal Medicine
PROC: 30233N1 Transfusion of Nonautologous Red Blood Cells into Peripheral Vein, Percutaneous Approach (ICD-10-PCS; 2016-07-31)
PROC: 5A1945Z Respiratory Ventilation, 24-96 Consecutive Hours (ICD-10-PCS; principal; 2016-08-01)
PROC: 0BH17EZ Insertion of Endotracheal Airway into Trachea, Via Natural or Artificial Opening (ICD-10-PCS; 2016-08-01)
PROC: 30233N1 Transfusion of Nonautologous Red Blood Cells into Peripheral Vein, Percutaneous Approach (ICD-10-PCS; 2016-08-01)
PROC: 30233N1 Transfusion of Nonautologous Red Blood Cells into Peripheral Vein, Percutaneous Approach (ICD-10-PCS; 2016-08-01)
PROC: 02HV33Z Insertion of Infusion Device into Superior Vena Cava, Percutaneous Approach (ICD-10-PCS; 2016-08-02)
PROC: 5A09457 Assistance with Respiratory Ventilation, 24-96 Consecutive Hours, Continuous Positive Airway Pressure (ICD-10-PCS; 2016-08-04)
PROC: 5A09357 Assistance with Respiratory Ventilation, Less than 24 Consecutive Hours, Continuous Positive Airway Pressure (ICD-10-PCS; 2016-08-08)
PROC: 5A09357 Assistance with Respiratory Ventilation, Less than 24 Consecutive Hours, Continuous Positive Airway Pressure (ICD-10-PCS; 2016-08-09)
PROC: 5A09357 Assistance with Respiratory Ventilation, Less than 24 Consecutive Hours, Continuous Positive Airway Pressure (ICD-10-PCS; 2016-08-09)
PROC: 5A09357 Assistance with Respiratory Ventilation, Less than 24 Consecutive Hours, Continuous Positive Airway Pressure (ICD-10-PCS; 2016-08-10)
PROC: 5A09357 Assistance with Respiratory Ventilation, Less than 24 Consecutive Hours, Continuous Positive Airway Pressure (ICD-10-PCS; 2016-08-11)
DX: J44.0 Chronic obstructive pulmonary disease with (acute) lower respiratory infection (principal); J15.211 Pneumonia due to Methicillin susceptible Staphylococcus aureus; J15.1 Pneumonia due to Pseudomonas; J44.1 Chronic obstructive pulmonary disease with (acute) exacerbation; R78.81 Bacteremia; J96.01 Acute respiratory failure with hypoxia; J96.02 Acute respiratory failure with hypercapnia; I13.0 Hypertensive heart and chronic kidney disease with heart failure and stage 1 through stage 4 chronic kidney disease, or unspecified chronic kidney disease; I50.23 Acute on chronic systolic (congestive) heart failure; N18.3 Chronic kidney disease, stage 3 (moderate); K92.2 Gastrointestinal hemorrhage, unspecified; E87.0 Hyperosmolality and hypernatremia; D50.0 Iron deficiency anemia secondary to blood loss (chronic); Z95.2 Presence of prosthetic heart valve; Z79.01 Long term (current) use of anticoagulants; R31.0 Gross hematuria; T45.515A Adverse effect of anticoagulants, initial encounter; R04.0 Epistaxis; I48.91 Unspecified atrial fibrillation; E89.0 Postprocedural hypothyroidism; Z85.850 Personal history of malignant neoplasm of thyroid; I27.2 Other secondary pulmonary hypertension; I95.2 Hypotension due to drugs; T44.7X5A Adverse effect of beta-adrenoreceptor antagonists, initial encounter; G89.4 Chronic pain syndrome; K74.60 Unspecified cirrhosis of liver; K52.9 Noninfective gastroenteritis and colitis, unspecified
CPT/HCPCS: 29230; 29242; 29243; 29247; 29250; 29263; 81240; 83463; 83475; 83480; 83741; 84190; 85244; 90001; 90004; 90047; 90065; 90070; 90074; 90098; 90100; 90112; 90127; 90148; 90155; 90309; 90455; 90616; 90648; 91004; 91023; 91162; 91163; 91286; 91295; 91320; 91400; 91504; 91505; 91544; 91556; 91576; 91585; 91588; 91643; 91672; 92031; 92668; 92670; 92720; 92740; 92755; 93004; 93140; 94001; 94060; 95011; 95059; 95061; 95150; 99262

== ENCOUNTER 2016-10-11 11:07 | Emergency (ER) | payer OTHER ==
[~2016-10-11 11:07] MED LIST changes: +COUMADIN2.5 MG PO; +IPRATROPIUM BROMIDE/ IN; +LACTULOSE PO; +NYSTATIN100000 M2 TOP; +O2 IN; +SPIRONOLACTONE25 MG PO; +XIFAXAN200 MG PO
--- NOTE | 2016-10-11 12:08 | DIAGNOSTIC IMAGING REPORT ---
PROCEDURE: XR CHEST 1 VIEW INDICATION: SHORTNESS OF BREATH TECHNIQUE: Portable AP view 11:42 a.m. COMPARISON: Chest 08/11/2016 FINDINGS: Low lung volumes. Marked cardiomegaly, stable. Median sternotomy and valvuloplasty changes. Stable mild strandy density in the right infrahilar region and left lung base suggestive of atelectasis. Diffuse thickening of the interstitial markings. Decreased central vascular congestion IMPRESSION: 1. No change in Cardiomegaly without central vascular congestion.. 2. No acute infiltrates
--- NOTE | 2016-10-11 14:11 | ED ORDER SUMMARY ---
..... Patient: GINGER JOHNSON OrderSheet [facility] VisitID: [id number] [place] [address] 61y, F Registration Date/Time: 10/11/2016 ORDER SHEET Weight: 49.4 kg (stated) Allergies: No Known Drug Allergy GENERAL ORDERS: Chest 1V Urgent (11:10/11/2016 Adrienne Williamson) (Ack 11:27 Ranjeet) (11:39 KHoerner) Cardiac Panel Stat (11:10/11/2016 Adrienne Williamson) (Ack 11:27 Ranjeet) (11:50 SRoberts R.N.) BNP Urgent (11:10/11/2016 Adrienne Williamson) (Ack 11:27 Amadoner) (11:50 SRoberts R.N.) D-Dimer Urgent (11:10/11/2016 Adrienne Williamson) (Ack 11:27 Amadoner) (11:50 SRoberts R.N.) EKG - ER Stat (11:10/11/2016 Adrienne Williamson) (11:37 LNations ER Tech1) Type & Cross (severe symptomatic anemia) (prevent infection) Urgent (13:02 10/11/2016 Adrienne Williamson) (Ack 13:05 Ranjeet) (Cancelled: Physician Order14:09 Adrienne Williamson) Transfuse PRBCs (13:23 10/11/2016 Adrienne Williamson) (Ack 14:15 Ranjeet) (16:07 SRoberts R.N.) Type & Cross (severe anemia, symptomatic) (prevent rxn) Urgent (14:10 10/11/2016 Adrienne Williamson) (Ack 14:15 Ranjeet) (16:07 SRoberts R.N.) MEDICATION ORDERS: Oxycodone-APAP PO 5/325 mg (HIGH ALERT MEDICATION, NOW) (15:31 10/11/2016 Adrienne Williamson) (15:35 MCook R.N.) IV FLUIDS: IV Saline Lock (11:10/11/2016 Adrienne Williamson) (11:50 SRoberts R.N.) ORDER SHEET NOTES: [Electronically signed by Mary Samuel R.N. (16:08 10/11/2016)] [Electronically signed by Tyrel Andrea Dr. (21:53 10/11/2016)] [Electronically locked/signed by Mary Samuel R.N. (16:08 10/11/2016)]
--- NOTE | 2016-10-11 14:11 | ED ORDER SUMMARY ---
..... Patient: GIGNER JOHNSON OrderSheet [facility] VisitID: [id number] [place] [address] 61y, F Registration Date/Time: 10/11/2016 ORDER SHEET Weight: 49.4 kg (stated) Allergies: No Known Drug Allergy GENERAL ORDERS: Chest 1V Urgent (11:10/11/2016 Adrienne Williamson) (Ack 11:27 Ranjeet) (11:39 KHoerner) Cardiac Panel Stat (11:10/11/2016 Adrienne Williamson) (Ack 11:27 Ranjeet) (11:50 SRoberts R.N.) BNP Urgent (11:10/11/2016 Adrienne Williamson) (Ack 11:27 Amadoner) (11:50 SRoberts R.N.) D-Dimer Urgent (11:10/11/2016 Adrienne Williamson) (Ack 11:27 Amadoner) (11:50 SRoberts R.N.) EKG - ER Stat (11:10/11/2016 Adrienne Williamson) (11:37 LNations ER Tech1) Type & Cross (severe symptomatic anemia) (prevent infection) Urgent (13:02 10/11/2016 Adrienne Williamson) (Ack 13:05 Ranjeet) (Cancelled: Physician Order14:09 Adrienne Williamson) Transfuse PRBCs (13:23 10/11/2016 Adrienne Williamson) (Ack 14:15 Ranjeet) (16:07 SRoberts R.N.) Type & Cross (severe anemia, symptomatic) (prevent rxn) Urgent (14:10 10/11/2016 Adrienne Williamson) (Ack 14:15 Ranjeet) (16:07 SRoberts R.N.) MEDICATION ORDERS: Oxycodone-APAP PO 5/325 mg (HIGH ALERT MEDICATION, NOW) (15:31 10/11/2016 Adrienne Williamson) (15:35 MCook R.N.) IV FLUIDS: IV Saline Lock (11:10/11/2016 Adrienne Williamson) (11:50 SRoberts R.N.) ORDER SHEET NOTES: [Electronically signed by Mary Samuel R.N. (16:08 10/11/2016)] [Electronically signed by Tyrel Andrea Dr. (21:53 10/11/2016)] [Electronically locked/signed by Mary Samuel R.N. (16:08 10/11/2016)]
--- NOTE | 2016-10-11 14:11 | ED NURSING NOTES ---
Clinical Report - Nurses [facility] [address] [place] [address] 10/11/2016 11:08 Patient: GINGER JOHNSON TRIAGE Triage time 11:25. Acuity: LEVEL 3. Chief Complaint: SHORTNESS OF BREATH and WHEEZING. Alert. --11:47 Mary Samuel R.N. 11:10/11/16. BP: 124/98. HR: 59. RR: 17. O2 saturation: 80% on room air. O2 started via nasal cannula at 3 liters/minute. Temp: 98.2 F. Pain level now: 07/29. --11:47 Mary Samuel R.N. 11:10/11/16. BP: 124/98. HR: 59. RR: 17. O2 saturation: 80% on room air. O2 started via nasal cannula at 3 liters/minute. Temp: 98.2 F. Pain level now: 07/29. --11:47 Mary Samuel R.N. Weight: 49.4 kg stated. Height/Length: 60 inches Per Patient. BMI: 21.3. --11:42 Mary Samuel R.N. Medications Advair Diskus Inhalation 1 puff, 2x a day. Albuterol Sulfate Inhalation 2 puffs, as needed. --11:45 Mary Samuel R.N. Calcium 600+D Oral. Carvedilol Phosphate ER Oral (Capsule Extended Release 24 Hour 10 mg), bid. Coumadin Oral 5 mg, daily (Th-Sat 5mg all other days 2.5 mg). Cyanocobalamin 1000 mg, daily. Ferrous Sulfate Oral 324 mg, 2x a day. Folic Acid Oral 1 mg, daily. Furosemide Oral (Tablet 20 mg) 2 tablets, daily. Incruse ellipta 62.5 mcg/inhalation, daily. Levothyroxine Sodium Oral 137 mcg, daily. Lisinopril Oral 5 mg, daily. Omeprazole Oral 20 mg, 2x a day. OxyCODONE HCl Oral 5 mg, 1-2 tabs 2-3 times daily as needed. PredniSONE Oral 10 mg, daily. ProAir HFA Inhalation, as needed. Promethazine HCl Oral 12.5 mg, daily as needed. Senna Oral 2 tablets prn at hs. --11:45 Mary Samuel R.N. Medication/allergy information source: the patient. --11:47 Mary Samuel R.N. Allergies No Known Drug Allergy. --11:45 Mary Samuel R.N. History Arrived by private vehicle. Historian: patient and family. Accompanied by friend. Primary physician (Johanne). Onset. (5 days ago). She has had wheezing. No fever or chills. 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 PAST MEDICAL HX: Immunizations: status is unknown. The patient is post-menopausal. SOCIAL HX: Smoker- current status unknown. No alcohol use or drug use. FALL RISK ASSESSMENT: Fall risk assessment completed. No fall risk identified. NUTRITIONAL RISK ASSESSMENT: The nutritional risk assessment revealed no deficiencies. LEARNING NEEDS ASSESSMENT: The learning needs assessment revealed no barriers. FUNCTIONAL ASSESSMENT: Functional assessment performed: requires assistance with the activities of daily living; uses walker. SKIN INTEGRITY ASSESSMENT: Skin integrity risk assessment completed. No skin integrity risk identified. --11:47 Mary Samuel R.N. PROBLEMS: Congestive Heart Failure. COPD - Chronic Obstructive Pulmonary Disease. Hypothyroidism. Cirrhosis. Home oxygen. Gastroenteritis. Anemia. Epistaxis. Prior Nosebleeds. Abdominal Pain. Ascites. Emphysema. Respiratory Failure. Gallstone(s). Dyspnea. Asthma. --11:31 Mary Samuel R.N. Pneumonia [RuleOut]. Congestive Heart Failure [RuleOut]. COPD - Chronic Obstructive Pulmonary Disease [RuleOut]. --11:31 Mary Samuel R.N. ADDITIONAL SURGERIES: Aortic and mitral valvuloplasty. Cataract Surgery. Hernia Repair. Thyroid Surgery. --11:31 Mary Samuel R.N. Interventions ID band on patient. To room. --11:47 Mary Samuel R.N. PHYSICAL ASSESSMENT Ambulatory to room. In place: oxygen by nasal cannula. GENERAL / NEURO / PSYCH: Alert. Oriented X 4. HEENT: Mucous membranes are pink. RESPIRATORY: Mild respiratory distress. The patient can speak in full sentences. CVS: Capillary refill less than 2 seconds. GI / : Abdomen nontender. SKIN: Skin is warm and dry. Normal skin turgor. --11:48 Mary Samuel R.N. Patient gowned. --11:48 Mary Samuel R.N. NURSING PROGRESS NOTES Oxygen administered by nasal cannula at 3 liters. case monitor, pulse oximeter and NIBP monitor placed on patient; property assessment monitor- Lead II; monitor alarms on. Patient gowned. Head of bed elevated. --11:49 Mary Samuel R.N. Two patient identifiers checked. Call light placed in reach. Side rails up x 2. Bed placed in lowest position. Brakes of bed on. Patient ready for evaluation. --11:49 Mary Samuel R.N. 11:40 10/11/2016 Site #1 started via IV in the left hand with an 22g angiocath, with aseptic technique and good blood return; one attempt. Blood drawn: rainbow set. Labeled in the presence of the patient and sent to the lab. Saline lock flushed with 10 mL saline. --11:50 Mary Samuel R.N. EKG time: (1145). EKG was ordered, performed by a tech and shown to the ED physician. --11:56 Cyn Walker ER Tech1 Critical value relayed to ED by ze. Critical value received by marcel. Hgb: 6.9. Hct: 20.2. Critical value read back. Verified lab result and patient ID. ED physician notifed of critical value. --12:03 Mary Samuel R.N. ( assisted pt up to use bed side commode. Pt. back to bed.). --12:59 Cyn Walker ER Tech1 ( Assisted during a rectal exam.). --13:40 Cyn Walker ER Tech1 14:00. The patient was turned and repositioned. Assisted patient to bedside commode and back to bed; tolerated well. --14:16 Kristen Mcgregor R.N. 14:07 10/11/2016 Site #2 started via IV in the left forearm with an 20g angiocath, with aseptic technique and good blood return; one attempt. Saline lock flushed with 10 mL saline. --14:17 Kristen Mcgregor R.N. 14:17 10/11/16. BP: 91/48. HR: 71. RR: 16. O2 saturation: 99%. --14:17 Kristen Mcgregor R.N. 14:33 10/11/16. BP: 106/46. HR: 74. RR: 20. O2 saturation: 100% on nasal cannula at 3 liters/minute. 14:17 10/11/16. BP: 91/48. HR: 71. RR: 16. O2 saturation: 99%. 12:32 10/11/16. BP: 113/69. HR: 77. RR: 20. O2 saturation: 93% on nasal cannula at 3 liters/minute. --14:34 Mary Samuel R.N. 15:35 10/11/2016 Oxycodone-APAP (Oxycodone-Acetaminophen) PO 5/325 mg Tablets 1 tab given. Allergies verified, confirmed 5 rights and sedative warning given to the patient. --15:35 Rony Olsen R.N. 15:38 10/11/16. BP: 171/71. HR: 69. RR: 16. O2 saturation: 97% on room air. --15:38 Jurgen Galvan R.N. ( Unit RBC started at 1525, Afebrile. VS stable. Medicated with percocet at 1535. Saline lock x 2, 20G lt fa, and 22G lt hand, both patent and flushes easily. Report given to the transport team, RN.). --15:46 Mary Samuel R.N. 15:50 10/11/2016 Site #[address] upon transfer; patent, no pain and no signs of infection or infiltration. Good blood return present; flushes easily. --16:07 Mary Samuel R.N. 15:50 10/11/2016 Site #[address] upon transfer; patent, no pain and no signs of infection. Good blood return present; flushes easily. --16:08 Mary Samuel R.N. DISPOSITION / DISCHARGE Departure time: 1550. Transported via stretcher by transport team with IV (Blood infusing well, vs,). Report was given to a nurse in person. Report included patient's care, treatment, medications, reviewed medication reconcilliation, and condition (including any recent changes or anticipated changes). All questions were answered. Report was acknowledged and care was transferred. Patient's personal items include: pants, undergarments, socks and shoes; items were placed in belongings bag and transported with the patient. Collection of belongings was witnessed by 1 nurse. --15:51 Mary Samuel R.N. Patient's personal items include: purse, Walker, and small 02 tank. --15:52 Mary Samuel R.N. 15:38 10/11/16. BP: 171/71. HR: 69. RR: 16. O2 saturation: 97% on room air. 14:33 10/11/16. BP: 106/46. HR: 74. RR: 20. O2 saturation: 100% on nasal cannula at 3 liters/minute. 14:17 10/11/16. BP: 91/48. HR: 71. RR: 16. O2 saturation: 99%. 12:32 10/11/16. BP: 113/69. HR: 77. RR: 20. O2 saturation: 93% on nasal cannula at 3 liters/minute. 11:25 10/11/16. BP: 124/98. HR: 59. RR: 17. O2 saturation: 80% on room air. O2 started via nasal cannula at 3 liters/minute. Temp: 98.2 F. Pain level now: 07/29. --15:52 Mary Samuel R.N. Locked/Released at 10/11/2016 16:08 by Mary Samuel R.N.
--- NOTE | 2016-10-11 14:11 | ED CLINICAL REPORT ---
Clinical Report - Physicians/Mid Levels [facility] [address] [place] [address] 10/11/2016 11:08 Patient: GINGER JOHNSON Time Seen: 11:25; initial patient contact. Arrived- By private vehicle. Historian- patient. HISTORY OF PRESENT ILLNESS Chief Complaint: DYSPNEA and HISTORY OF CONGESTIVE HEART FAILURE. This started about 4 days ago and is still present. The dyspnea is described as moderate. The dyspnea is worsened by walking and exertion. No improvement of dyspnea with oxygen. No cough, sputum production, fever, sweating episodes or chills. No chest pain or discomfort, calf pain, foot swelling or orthopnea. No anxiety, dizziness, tingling or palpitations. The patient has had wheezing and dyspnea on exertion. Similar symptoms previously: Many times. Recent medical care: Not recently seen/assessed. REVIEW OF SYSTEMS No nausea, vomiting, abdominal pain, diarrhea or black stools. No bloody stools. All systems otherwise negative, except as recorded above. PAST HISTORY Congestive Heart Failure. COPD - Chronic Obstructive Pulmonary Disease. Hypothyroidism. Cirrhosis. Home oxygen. Gastroenteritis. Anemia. Epistaxis. Prior Nosebleeds. Abdominal Pain. Ascites. Emphysema. Respiratory Failure. Gallstone(s). Dyspnea. Asthma. Pneumonia Congestive Heart Failure COPD SURGERIES: Aortic and mitral valvuloplasty. Cataract Surgery. Hernia Repair. Thyroid Surgery. -. SOCIAL HISTORY Smoker - current status unknown. No alcohol use or drug use. ADDITIONAL NOTES The nursing notes have been reviewed. PHYSICAL EXAM Vital Signs: 10/11/2016 11:25 BP: 124/98. HR: 59. RR: 17. O2 saturation: 80%. Temp: 98.2 F. Pain level now: 210. Have been reviewed. Hypertensive. Bradycardic. Respiratory rate normal. Temperature normal. Oxygen saturation low. Appearance: Alert. No acute distress. Eyes: Pale conjunctivae. ENT: Dry mucous membranes present. Neck: Normal inspection. No jugular venous distention. CVS: Normal heart rate and rhythm. Heart sounds normal. Respiratory: No respiratory distress. Mild rales present in the bases bilaterally. No prolonged expiration or wheezes. Abdomen: Soft and nontender. No organomegaly. Skin: Pale. Extremities: No calf tenderness. No lower extremity edema. Neuro: Oriented X 3. No motor deficit. LABS, X-RAYS, AND EKG EKG: EKG time: (1145). Atrial fibrillation (ventricular rate 79). RBBB. Right axis deviation. Normal ST and T waves, QT and QTc. EKG unchanged when compared with prior EKG. The study has been interpreted contemporaneously by me. The study has been independently viewed by me. The EKG appears to be a good tracing. Interpretation time: 1145. Chest X-ray: (1. No change in Cardiomegaly without central vascular congestion.. 2. No acute infiltrates). The X-rays were independently viewed by me, interpreted by the radiologist and discussed with the radiologist. Laboratory Tests: CBC w Diff: (JP: 10/11/2016 11:40) ( MsgRcvd 10/11/2016 12:04) Final results Test Result Flag Units (Reference) WHITE BLOOD COUNT 2.6 L K/uL (4.5-11.5) RED BLOOD COUNT 1.97 L M/uL (4.00-5.20) HEMOGLOBIN 6.7 *L gm/dL (12.0-16.0) CRITICAL RESULTS CALLEDCalled to ATIYA CHIN,ER 10/11/16 1155Were 2 patient identifiers used? YWas the result read back? HEMATOCRIT 20.2 *L % (36.0-46.0) CRITICAL RESULTS CALLEDCalled to ATIYA CHIN,ER 10/11/16 1155Were 2 patient identifiers used? YWas the result read back? MEAN CELL VOLUME 103 H fL (80-100) MEAN CORPUSCULAR HGB 34 pg (26-34) MEAN CORPUSCULAR HGB CONC 33 g/dL (31-37) RED CELL DISTRIBUTION WIDTH 18.3 H % (11.6-14.8) PLATELET COUNT 164 K/uL (150-400) NEUTROPHIL % 64.8 % (50-75) LYMPH % 21.8 L % (25-40) MONO % 10.6 % (3-14) EOSINOPHIL % 2.7 % (0-4) BASOPHIL % 0.1 % (0-2) [id number]: (JP: 10/11/2016 11:40) ( [facility] 10/11/2016 12:05) Final results Test Result Flag Units (Reference) D-DIMER QUANTITATIVE 0.34 ug/mLFEU (0.27-0.52) The primary value of this quantitative assay relates toits negative predictive value (i.e. exclusion) of pulmonaryembolism/deep vein thrombosis/DIC.Elevated levels of d-dimer may also occur with:, age, cancer, inflammation, liver disease,post-op, infection, hematoma, coronary disease, peripheralarteriopathy, bleeding disorders and thrombolytic treatment.Results should be correlated with other clinical andradiological data.Testing Methodology: Latex Immunoassay BNP: (JP: 10/11/2016 11:40) ( [facility] 10/11/2016 12:26) Final results Test Result Flag Units (Reference) B-TYPE NATRIURETIC PEPTIDE 187 H pg/ml (5-100) CHEM 13 PANEL: (JP: 10/11/2016 11:40) ( [facility] 10/11/2016 12:09) Final results Test Result Flag Units (Reference) GLUCOSE 107 mg/dL (70-110) BUN 44 H mg/dL (7-18) CREATININE 1.1 mg/dL (0.6-1.3) Estimated GFR 53.67 mL/min Estimated GFR- >60 mL/min Note: Persistent reduction over 3 months in eGFR<60 mL/min/1.73 m2 defines CKD. Patients with eGFR values>=60 mL/min/1.73 m2 may also have CKD if evidence ofpersistent proteinuria. Additional information may be foundat [email or web address]. SODIUM 138 mmol/L (136-145) POTASSIUM 5.5 H mmol/L (3.5-5.1) CHLORIDE 103 mmol/L (98-107) CARBON DIOXIDE 30 mmol/L (21-32) CALCIUM 8.8 mg/dL (8.5-10.1) TOTAL PROTEIN 7.2 g/dL (6.4-8.2) ALBUMIN 3.4 g/dL (3.3-5.0) BILIRUBIN, TOTAL 0.6 mg/dL (0.0-1.0) ALKALINE PHOSPHATASE 108 U/L (46-116) AST (SGOT) 24 U/L (15-37) ALT (SGPT) 22 U/L (12-78) MAGNESIUM 2.3 mg/dL (1.8-2.4) CPK 40 U/L (24-260) TROPONIN I <0.05 ng/mL (0.00-1.5) TROPONIN REFERENCE RANGE:<0.1 NEGATIVE0.1-1.5 INDETERMINANT>1.5 POSITIVE . PROGRESS AND PROCEDURES Discussed case with health care provider (call returned 14:00 Dr. Hernandez @ [facility], will accept pt. Recommended giving only 1 unit of PRBC's now.). Disposition: Benefits, risks and alternatives to transfer explained to patient and family. Transferred to [facility]. Condition: stable. CLINICAL IMPRESSION Acute and chronic iron deficiency anemia from chronic blood loss. INSTRUCTIONS Follow-up: Blood pressure screening was not performed during this visit because the patient has an active diagnosis of hypertension. (Electronically signed by Tyrel Andrea Dr. 10/11/2016 21:53) Addenda for GINGER JOHNSON VisitID: [id number] Date: 10/11/2016 10/11/2016 17:34 Report to ATIYA Simons at [facility]. (Electronically signed by Mary Samuel R.N. - 10/11/2016 17:34)
--- NOTE | 2016-10-11 14:11 | ED CLINICAL REPORT ---
Clinical Report - Physicians/Mid Levels [facility] [address] [place] [address] 10/11/2016 11:08 Patient: GINGER JOHNSON Time Seen: 11:25; initial patient contact. Arrived- By private vehicle. Historian- patient. HISTORY OF PRESENT ILLNESS Chief Complaint: DYSPNEA and HISTORY OF CONGESTIVE HEART FAILURE. This started about 4 days ago and is still present. The dyspnea is described as moderate. The dyspnea is worsened by walking and exertion. No improvement of dyspnea with oxygen. No cough, sputum production, fever, sweating episodes or chills. No chest pain or discomfort, calf pain, foot swelling or orthopnea. No anxiety, dizziness, tingling or palpitations. The patient has had wheezing and dyspnea on exertion. Similar symptoms previously: Many times. Recent medical care: Not recently seen/assessed. REVIEW OF SYSTEMS No nausea, vomiting, abdominal pain, diarrhea or black stools. No bloody stools. All systems otherwise negative, except as recorded above. PAST HISTORY Congestive Heart Failure. COPD - Chronic Obstructive Pulmonary Disease. Hypothyroidism. Cirrhosis. Home oxygen. Gastroenteritis. Anemia. Epistaxis. Prior Nosebleeds. Abdominal Pain. Ascites. Emphysema. Respiratory Failure. Gallstone(s). Dyspnea. Asthma. Pneumonia Congestive Heart Failure COPD SURGERIES: Aortic and mitral valvuloplasty. Cataract Surgery. Hernia Repair. Thyroid Surgery. -. SOCIAL HISTORY Smoker - current status unknown. No alcohol use or drug use. ADDITIONAL NOTES The nursing notes have been reviewed. PHYSICAL EXAM Vital Signs: 10/11/2016 11:25 BP: 124/98. HR: 59. RR: 17. O2 saturation: 80%. Temp: 98.2 F. Pain level now: 210. Have been reviewed. Hypertensive. Bradycardic. Respiratory rate normal. Temperature normal. Oxygen saturation low. Appearance: Alert. No acute distress. Eyes: Pale conjunctivae. ENT: Dry mucous membranes present. Neck: Normal inspection. No jugular venous distention. CVS: Normal heart rate and rhythm. Heart sounds normal. Respiratory: No respiratory distress. Mild rales present in the bases bilaterally. No prolonged expiration or wheezes. Abdomen: Soft and nontender. No organomegaly. Skin: Pale. Extremities: No calf tenderness. No lower extremity edema. Neuro: Oriented X 3. No motor deficit. LABS, X-RAYS, AND EKG EKG: EKG time: (1145). Atrial fibrillation (ventricular rate 79). RBBB. Right axis deviation. Normal ST and T waves, QT and QTc. EKG unchanged when compared with prior EKG. The study has been interpreted contemporaneously by me. The study has been independently viewed by me. The EKG appears to be a good tracing. Interpretation time: 1145. Chest X-ray: (1. No change in Cardiomegaly without central vascular congestion.. 2. No acute infiltrates). The X-rays were independently viewed by me, interpreted by the radiologist and discussed with the radiologist. Laboratory Tests: CBC w Diff: (JP: 10/11/2016 11:40) ( MsgRcvd 10/11/2016 12:04) Final results Test Result Flag Units (Reference) WHITE BLOOD COUNT 2.6 L K/uL (4.5-11.5) RED BLOOD COUNT 1.97 L M/uL (4.00-5.20) HEMOGLOBIN 6.7 *L gm/dL (12.0-16.0) CRITICAL RESULTS CALLEDCalled to ATIYA CHIN,ER 10/11/16 1155Were 2 patient identifiers used? YWas the result read back? HEMATOCRIT 20.2 *L % (36.0-46.0) CRITICAL RESULTS CALLEDCalled to ATIYA CHIN,ER 10/11/16 1155Were 2 patient identifiers used? YWas the result read back? MEAN CELL VOLUME 103 H fL (80-100) MEAN CORPUSCULAR HGB 34 pg (26-34) MEAN CORPUSCULAR HGB CONC 33 g/dL (31-37) RED CELL DISTRIBUTION WIDTH 18.3 H % (11.6-14.8) PLATELET COUNT 164 K/uL (150-400) NEUTROPHIL % 64.8 % (50-75) LYMPH % 21.8 L % (25-40) MONO % 10.6 % (3-14) EOSINOPHIL % 2.7 % (0-4) BASOPHIL % 0.1 % (0-2) [id number]: (JP: 10/11/2016 11:40) ( [facility] 10/11/2016 12:05) Final results Test Result Flag Units (Reference) D-DIMER QUANTITATIVE 0.34 ug/mLFEU (0.27-0.52) The primary value of this quantitative assay relates toits negative predictive value (i.e. exclusion) of pulmonaryembolism/deep vein thrombosis/DIC.Elevated levels of d-dimer may also occur with:, age, cancer, inflammation, liver disease,post-op, infection, hematoma, coronary disease, peripheralarteriopathy, bleeding disorders and thrombolytic treatment.Results should be correlated with other clinical andradiological data.Testing Methodology: Latex Immunoassay BNP: (JP: 10/11/2016 11:40) ( [facility] 10/11/2016 12:26) Final results Test Result Flag Units (Reference) B-TYPE NATRIURETIC PEPTIDE 187 H pg/ml (5-100) CHEM 13 PANEL: (JP: 10/11/2016 11:40) ( [facility] 10/11/2016 12:09) Final results Test Result Flag Units (Reference) GLUCOSE 107 mg/dL (70-110) BUN 44 H mg/dL (7-18) CREATININE 1.1 mg/dL (0.6-1.3) Estimated GFR 53.67 mL/min Estimated GFR- >60 mL/min Note: Persistent reduction over 3 months in eGFR<60 mL/min/1.73 m2 defines CKD. Patients with eGFR values>=60 mL/min/1.73 m2 may also have CKD if evidence ofpersistent proteinuria. Additional information may be foundat [email or web address].org. SODIUM 138 mmol/L (136-145) POTASSIUM 5.5 H mmol/L (3.5-5.1) CHLORIDE 103 mmol/L (98-107) CARBON DIOXIDE 30 mmol/L (21-32) CALCIUM 8.8 mg/dL (8.5-10.1) TOTAL PROTEIN 7.2 g/dL (6.4-8.2) ALBUMIN 3.4 g/dL (3.3-5.0) BILIRUBIN, TOTAL 0.6 mg/dL (0.0-1.0) ALKALINE PHOSPHATASE 108 U/L (46-116) AST (SGOT) 24 U/L (15-37) ALT (SGPT) 22 U/L (12-78) MAGNESIUM 2.3 mg/dL (1.8-2.4) CPK 40 U/L (24-260) TROPONIN I <0.05 ng/mL (0.00-1.5) TROPONIN REFERENCE RANGE:<0.1 NEGATIVE0.1-1.5 INDETERMINANT>1.5 POSITIVE . PROGRESS AND PROCEDURES Discussed case with health care provider (call returned 14:00 Dr. Hernandez @ [facility], will accept pt. Recommended giving only 1 unit of PRBC's now.). Disposition: Benefits, risks and alternatives to transfer explained to patient and family. Transferred to [facility]. Condition: stable. CLINICAL IMPRESSION Acute and chronic iron deficiency anemia from chronic blood loss. INSTRUCTIONS Follow-up: Blood pressure screening was not performed during this visit because the patient has an active diagnosis of hypertension. (Electronically signed by Tyrel Andrea Dr. 10/11/2016 21:53) Addenda for GINGER JOHNSON VisitID: [id number] Date: 10/11/2016 10/11/2016 17:34 Report to ATIYA Simons at [place]. (Electronically signed by Mary Samuel R.N. - 10/11/2016 17:34)
--- NOTE | 2016-10-11 21:54 | ED MAR SUMMARY ---
..... Medication Administration Record [facility] [address] [place] [address] Patient: GINGER JOHNSON Visit ID: [id number] 61y, F Weight: 49.4 kg Height/Length: 60 in BMI: 21.3 ALLERGIES: No Known Drug Allergy Given 15:35 10/11/2016 Rony Olsen R.N. Medication Administered: OXYCODONE-APAP [PO] (OXYCODONE-ACETAMINOPHEN), Dose: 1 tab 5/325 mg Tablets PO. Medication Ordered: Oxycodone-APAP PO 5/325 mg (HIGH ALERT MEDICATION, NOW).
--- NOTE | 2016-10-11 21:54 | ED MED RECONCILIATION SUMMARY ---
Patient: GINGER JOHNSON Medication Reconciliation Report [facility] VisitID: [id number] [place] [address] 61y, F Registration Date/Time: 10/11/2016 Weight: 49.4 kg Height/Length: 60 in. BMI: 21.3 ALLERGIES: No Known Drug Allergy The patient's Home Medications are listed below: THE FOLLOWING MEDICATIONS NEED TO BE RECONCILED: Advair Diskus Inhalation 1 puff, 2x a day Albuterol Sulfate Inhalation 2 puffs Calcium 600+D Oral Carvedilol Phosphate ER Oral (10 mg), bid Coumadin Oral 5 mg, daily, Th-Sat 5mgall other days 2.5 mg Cyanocobalamin 1000 mg, daily Ferrous Sulfate Oral 324 mg, 2x a day Folic Acid Oral 1 mg, daily Furosemide Oral (20 mg) 2 tablets, daily Incruse ellipta 62.5 mcg/inhalation, daily Levothyroxine Sodium Oral 137 mcg, daily Lisinopril Oral 5 mg, daily Omeprazole Oral 20 mg, 2x a day OxyCODONE HCl Oral 5 mg, 1-2 tabs 2-3 times daily PredniSONE Oral 10 mg, daily ProAir HFA Inhalation Promethazine HCl Oral 12.5 mg, daily Senna Oral 2 tablets prn at hs The source(s) of the original Home Medication information: patient The following Medications were given to the patient in the Emergency Department: Oxycodone-APAP [PO] PO 1 tab, administered: 10/11/2016 3:35:00 PM The following Medications were prescribed to the patient: None.
--- NOTE | 2016-10-11 21:54 | ED MED RECONCILIATION SUMMARY ---
Patient: GINGER JOHNSON Medication Reconciliation Report [facility] VisitID: [id number] [place] [address] 61y, F Registration Date/Time: 10/11/2016 Weight: 49.4 kg Height/Length: 60 in. BMI: 21.3 ALLERGIES: No Known Drug Allergy The patient's Home Medications are listed below: THE FOLLOWING MEDICATIONS NEED TO BE RECONCILED: Advair Diskus Inhalation 1 puff, 2x a day Albuterol Sulfate Inhalation 2 puffs Calcium 600+D Oral Carvedilol Phosphate ER Oral (10 mg), bid Coumadin Oral 5 mg, daily, Th-Sat 5mgall other days 2.5 mg Cyanocobalamin 1000 mg, daily Ferrous Sulfate Oral 324 mg, 2x a day Folic Acid Oral 1 mg, daily Furosemide Oral (20 mg) 2 tablets, daily Incruse ellipta 62.5 mcg/inhalation, daily Levothyroxine Sodium Oral 137 mcg, daily Lisinopril Oral 5 mg, daily Omeprazole Oral 20 mg, 2x a day OxyCODONE HCl Oral 5 mg, 1-2 tabs 2-3 times daily PredniSONE Oral 10 mg, daily ProAir HFA Inhalation Promethazine HCl Oral 12.5 mg, daily Senna Oral 2 tablets prn at hs The source(s) of the original Home Medication information: patient The following Medications were given to the patient in the Emergency Department: Oxycodone-APAP [PO] PO 1 tab, administered: 10/11/2016 3:35:00 PM The following Medications were prescribed to the patient: None.
--- NOTE | 2016-10-11 21:54 | ED DISCHARGE INSTRUCTIONS ---
Patient: GINGER JOHNSON General Instructions [facility] VisitID: [id number] [address] [place] [address] 61y, F Registration Date/Time: 10/11/2016 Acute and chronic iron deficiency anemia from chronic blood loss. INSTRUCTIONS Follow-up: Blood pressure screening was not performed during this visit because the patient has an active diagnosis of hypertension. (Electronically signed by Tyrel Andrea Dr. 10/11/2016 21:53)
--- NOTE | 2016-10-11 21:54 | ED DISCHARGE INSTRUCTIONS ---
Patient: GINGER JOHNSON General Instructions [facility] VisitID: [id number] [address] [place] [address] 61y, F Registration Date/Time: 10/11/2016 Acute and chronic iron deficiency anemia from chronic blood loss. INSTRUCTIONS Follow-up: Blood pressure screening was not performed during this visit because the patient has an active diagnosis of hypertension. (Electronically signed by Tyrel Andrea Dr. 10/11/2016 21:53)
--- NOTE | 2016-10-11 21:54 | ED MAR SUMMARY ---
..... Medication Administration Record [facility] [address] [place] [address] Patient: GINGER JOHNSON Visit ID: [id number] 61y, F Weight: 49.4 kg Height/Length: 60 in BMI: 21.3 ALLERGIES: No Known Drug Allergy Given 15:35 10/11/2016 Rony Olsen R.N. Medication Administered: OXYCODONE-APAP [PO] (OXYCODONE-ACETAMINOPHEN), Dose: 1 tab 5/325 mg Tablets PO. Medication Ordered: Oxycodone-APAP PO 5/325 mg (HIGH ALERT MEDICATION, NOW).
== END 2016-10-11 15:50 | disposition short-term general hospital (02) ==
LOC: ED SRH 11:07
DX: D50.0 Iron deficiency anemia secondary to blood loss (chronic) (principal); J44.9 Chronic obstructive pulmonary disease, unspecified; J45.909 Unspecified asthma, uncomplicated; Z79.899 Other long term (current) drug therapy; Z79.01 Long term (current) use of anticoagulants
CPT/HCPCS: 90001; 90100; 90155; 90616; 91004; 91320; 91544; 91556; 92610; 92720; 95059

== ENCOUNTER → 2016-12-14 | Outpatient (CLI) | payer OTHER | LOC: LAB SRH 11:29 | DX: Z95.2 Presence of prosthetic heart valve (principal) | CPT/HCPCS: 90074; 94060 ==